=== PATIENT | female | born 1955 | race Caucasian/White ===

== ENCOUNTER 2017-08-10 20:02 | Inpatient (IN) | payer MEDICARE, OTHER ==
[~2017-08-10] VITALS: Ht 165.1 cm; Wt 76.7 kg
[~2017-08-10 20:02] MED LIST: IBUP200C48 PO
--- NOTE | 2017-08-10 20:10 | NUR ---
TO BED 7 A 61 YO FEMAL E PT C/O HAVING A DARK BLOODY BOWEL MOVEMENT 1 HOUR AGO PT DENIES PAIN AT THIS TIME. VSS. NAD NOTED. AMBULATORY WITH STEADY GAIT. NONDIAPHORETIC. GOWNED. COMFORT MEASURES RENDERED. AWAITING FOR ER MD CALLES.
--- NOTE | 2017-08-10 20:30 | NUR ---
Dr Stanley at bedside to purnima.
[2017-08-10] MEDS ORDERED: ONDANSETRON HCL/PF 4 MG/2 ML VIAL ONE (20:47)
--- NOTE | 2017-08-10 20:55 | NUR ---
STARTED A SALINE LOCK ON THE LAC G20, BLOOD DRAWN AND SENT TO LAB.
[2017-08-10] MEDS ORDERED: IV NS 0.9% 1,000 ML BAG IV ONE (21:00)
[2017-08-10] MEDS ORDERED: ONDANSETRON HCL/PF 4 MG/2 ML VIAL IVP ONE (21:00)
[2017-08-10 21:09] LABS: BASOPHILS % (AUTO) 0.4 % (0.0-2.0); EOSINOPHILS # (AUTO) 0.2 /CMM (0.0-0.7); EOSINOPHILS % (AUTO) 2.9 % (0.0-6.0); HEMATOCRIT 39 % (33-45); LYMPHOCYTES # (AUTO) 2.1 /CMM (0.8-4.8); MEAN CORPUSCULAR HEMOGLOBIN 30 PG (26.0-33.0); MEAN CORPUSCULAR HGB CONC 33 g/dl (31.0-36.0); MEAN CORPUSCULAR VOLUME 89 fL (82-100); MONOCYTES # (AUTO) 0.6 /CMM (0.1-1.30); MONOCYTES % (AUTO) 7.7 % (2.0-12.0); NEUTROPHILS # (AUTO) 4.9 /CMM (1.8-8.9); PLATELET COUNT (AUTO) 242 /CMM (150-450); RDW COEFFICIENT OF VARIATION 13.7 (11.5-15.0); RED BLOOD CELL COUNT(AUTO) 4.38 MIL/uL (4.0-5.2); WHITE BLOOD COUNT (AUTO) 7.9 K/uL (4.3-11.0)
[2017-08-10 21:22] LABS: INR 0.9 (0.87-1.13); PROTHROMBIN TIME 9.4 SECS (9.5-12.7)
[2017-08-10 21:26] LABS: ALBUMIN 3.3 g/dL (3.4-5.0); BILIRUBIN,TOTAL 0.2 mg/dL (0.2-1.0); CALCIUM, SERUM 9.2 mg/dL (8.5-10.1); POTASSIUM 3.3 mmol/L (3.5-5.1); TOTAL PROTEIN, SERUM 7.1 g/dL (6.4-8.2)
--- NOTE | 2017-08-10 21:40 | NUR ---
patient back from ct.
--- NOTE | 2017-08-10 21:50 | NUR ---
patient went to the bathroom, noted that patient moved moderate amount of bloody stool with clots. Dr Stanley notified. ongoing vs monitoring.
[2017-08-10] MEDS ORDERED: ACETAMINOPHEN 325 MG TABLET PO PRN (22:30)
[2017-08-10] MEDS ORDERED: HYDROCODONE/APAP 5/325MG 1 EACH TABLET PO PRN (22:30)
[2017-08-10] MEDS ORDERED: ONDANSETRON HCL/PF 4 MG/2 ML VIAL IVP PRN (22:30)
--- NOTE | 2017-08-10 23:56 | NUR ---
Report given to Brenda JIMENEZ for dori.
--- NOTE | 2017-08-11 | NUR ---
Transferred patient to tele bed 322-1 via als protocol, no incident noted.
[2017-08-11 00:45] VITALS: BP 118/61
--- NOTE | 2017-08-11 00:45 | NUR ---
MS RN ADMITTING NOTES: ADMITTED A 61 YO FEMALE PATIENT WHO WAS SEEN IN THE ER AFTER HAVING 1 EPISODE OF MUCOID, BLOODY STOOL. PATIENT WAS BROUGHT TO MS FLOOR BY WHEELCHAIR, AOX4, ON ROOM AIR, BREATHING EVEN AND UNLABORED, APPEARS CALM AND IN NO DISTRESS, AMBULATORY. PATIENT REQUESTED TO BE ADMITTED IN A ROOM BY HERSELF, STATES THAT SHE HAS MULTIPLE CHEMICAL SENSITIVITIES. DENIES PAIN AT THIS TIME. ON CLEAR LIQUIDS DIET. PIV OVER LAC G20 INTACT AND PATENT TO FLUSH. ADMITTING CARE DONE. PROVIDED FOR COMFORT AND SAFETY. BED IN LOWEST AND LOCKED POSITION, SIDERAILS UPX3. WILL CONT TO MONITOR.
--- NOTE | 2017-08-11 01:30 | NUR ---
RN NOTES: CALLED DR MCKENZIE RE SERUM K: 3.3. NO NEW ORDERS GIVEN BY , FOR AM LABS IN THE AM.
[2017-08-11] MEDS: IV NS 0.9% 1,000 ML IV PRN (01:46)
[2017-08-11 01:53] VITALS: BP 118/61
[2017-08-11] MEDS ORDERED: THYR30TA2 PO (04:38)
--- NOTE | 2017-08-11 05:25 | NUR ---
RN NOTES: PATIENT REFUSED BLOOD DRAW FOR NOW, REQUESTED TO HAVE LABS DRAWN LATER, SAYING THAT SHE WANTS TO SLEEP.
--- NOTE | 2017-08-11 06:27 | NUR ---
MS RN CLOSING NOTES: PATIENT IN BED, AOX4, ON ROOM AIR, BREATHING EVEN AND UNLABORED. PIV OVER LAC G20 INTACT AND PATENT TO FLUSH, PATIENT REQUESTING TO HAVE IV FLUID RECONNECTED LATER SAYING SHE WANTS TO BE ABLE TO SLEEP FOR NOW. NO ACUTE CHANGE IN CONDITION NOTED THROUGH SHIFT. PROVIDED FOR COMFORT AND SAFETY. BED IN LOWEST AND LOCKED POSITION, SIDERAILS UP X3. WILL ENDORSE TO AM RN FOR SHANIA.
--- NOTE | 2017-08-11 07:30 | NUR ---
RN Initial Notes: Received patient resting in bed. Non-labored breathing noted on room air. Patient alert oriented x4. Patient denies pain at the moment. IV site on left ac patent and intact. Bed in lowest locked position. Call light within reach. WIll continue to monitor.
[2017-08-11 08:00] VITALS: BP 100/51
[2017-08-11] MEDS ORDERED: PANTOPRAZOLE 40 MG VIAL IV SCH (09:00)
[2017-08-11] MEDS: FAMOTIDINE/PF INJ 20 MG/2 ML VIAL IV SCH ×2 (12:00→22:00)
--- NOTE | 2017-08-11 12:56 | NUR ---
RN NOTES: Patient refused Famotidine. Benefits and risks explained. Medication offered multiple times. Patient still refused
[2017-08-11 15:10] LABS: BASOPHILS % (AUTO) 0.8 % (0.0-2.0); EOSINOPHILS # (AUTO) 0.2 /CMM (0.0-0.7); EOSINOPHILS % (AUTO) 3.5 % (0.0-6.0); HEMATOCRIT 37 % (33-45); HEMOGLOBIN 12.4 g/dL (11.5-14.8); LYMPHOCYTES # (AUTO) 1.7 /CMM (0.8-4.8); LYMPHOCYTES % (AUTO) 27.7 % (20.0-44.0); MEAN CORPUSCULAR HEMOGLOBIN 30 PG (26.0-33.0); MEAN CORPUSCULAR HGB CONC 33 g/dl (31.0-36.0); MEAN CORPUSCULAR VOLUME 89 fL (82-100); MONOCYTES # (AUTO) 0.6 /CMM (0.1-1.30); MONOCYTES % (AUTO) 10.3 % (2.0-12.0); NEUTROPHILS # (AUTO) 3.5 /CMM (1.8-8.9); NEUTROPHILS % (AUTO) 57.7 % (43.0-81.0); PLATELET COUNT (AUTO) 235 /CMM (150-450); RDW COEFFICIENT OF VARIATION 13.4 (11.5-15.0); RED BLOOD CELL COUNT(AUTO) 4.18 MIL/uL (4.0-5.2)
[2017-08-11] MEDS ORDERED: POTASSIUM CHLORIDE 10 MEQ TABLET.SA PO ONE (15:30)
[2017-08-11 15:32] LABS: RETICULOCYTE COUNT 1.3 % (0.6-2.5)
[2017-08-11 15:38] LABS: CALCIUM, SERUM 8.9 mg/dL (8.5-10.1); CREATININE 0.8 mg/dL (0.6-1.3); MAGNESIUM 2.1 mg/dL (1.8-2.4); PHOSPHORUS 3.2 mg/dL (2.5-4.9); POTASSIUM 3.6 mmol/L (3.5-5.1)
[2017-08-11 15:48] LABS: THYROID STIMULATING HORMONE 0.898 uIU/mL (0.358-3.74)
[2017-08-11 16:00] VITALS: BP 110/61
--- NOTE | 2017-08-11 18:30 | NUR ---
RN Notes: Dr. Rothman ordered to continue the patient's home medication. [place] Thyroid 30 mg daily.
--- NOTE | 2017-08-11 19:25 | NUR ---
RN Closing Notes: patient resting in bed. Non-labored breathing noted on room air. Patient alert oriented x4. Patient denies pain at the moment. IV site on left ac patent and intact. Bed in lowest locked position. Call light within reach. MD notified that patient refused Famotidine earlier. During shift, patient kept clean and dry. Encouraged to turn and reposition every 2 hours. Patient denies having bloody stools today. Endorsed to next shift
--- NOTE | 2017-08-11 19:30 | NUR ---
MS RN OPENING NOTES: PATIENT IN BED, AOX4, ON ROOM AIR, BREATHING EVEN AND UNLABORED. APPEARS CALM AND IN NO DISTRESS. PIV OVER LAC G20 INTACT AND PATENTLY INFUSING WITH NS RUNNING AT 75 ML/HR; HOWEVER, PATIENT STATES THAT SHE FEELS UNCOMFORTABLE AND THAT HER HAND APPEARS SWOLLEN. LEFT HAND AND UPPER ARM DID NOT SHOW ANY SIGNS OF SWELLING, REDNESS OR INFILTRATION, CHECKED WITH AM RN WELL. PATIENT STATES THAT SHE WANTS TO BE OFF THE IV FLUIDS FOR NOW, EXPLAINED BENEFITS AND RISKS, PATIENT STILL REFUSING, SAYING "IM DONE WITH THIS FOR TONIGHT." PATIENT ALSO STATES THAT SHE ALSO APPEARS PALE, AND THAT SHE DOES NOT LOOK GOOD. PATIENT'S COLOR APPEARS NORMAL, CAP REFILL < 3 SEC. PROVIDED FOR COMFORT AND SAFETY. BED IN LOWEST AND LOCKED POSITION, SIDERAILS UP X2. WILL CONT TO MONITOR.
[2017-08-11 20:00] VITALS: BP 124/71
--- NOTE | 2017-08-11 20:15 | NUR ---
RN NOTES: PATIENT HAD BRIGHT RED BLOODY BM IN TOILET. PATIENT DENIES ANY PAIN IN LOWER ABDOMEN AND RECTUM AT THIS TIME, STATES THAT THIS IS THE FIRST TIME SHE HAS HAD THIS KIND OF BM AFTER THE SAME TYPE OF BM THAT HAPPENED AT HOME BEFORE ADMISSION.
--- NOTE | 2017-08-12 06:49 | NUR ---
MS RN CLOSING NOTES: PATIENT IN BED, ASLEEP AT THIS TIME. ON ROOM AIR, BREATHING EVEN AND UNLABORED. APPEARS CALM AND IN NO DISTRESS. WAS ABLE TO SLEEP WELL THROUGH NIGHT. PIV OVER LAC G20 INTACT AND PATENT TO FLUSH. PATIENT WAS REFUSING THROUGH THE NIGHT TO HAVE IV FLUID RECONNECTED. PROVIDED FOR COMFORT AND SAFETY. NO ACUTE CHANGE IN CONDITION NOTED THROUGH SHIFT. WILL ENDORSE TO AM RN FOR SHANIA.
[2017-08-12] MEDS: THYROID 30 MG TABLET PO SCH ×2 (07:30→08:55)
--- NOTE | 2017-08-12 07:45 | NUR ---
RN OPENING NOTES RECEIVED PATIENT RESTING IN BED WITH EYES CLOSED. PATIENT EASILY AROUSABLE. AOX4. DENIES PAIN AT THIS TIME. PATIENT DENIES SOB, AND CP. RESPIRATIONS EVEN AND UNLABORED. NO ACUTE DISTRESS NOTED. IV LAC 20 G. PATIENT DOES NOT WANT NS RUNNING. PATIENT CLAIMS IT CAUSES HER ARM TO SWELL. NIGHT RN REPORTED PATIENT HAS TENDENCY TO REFUSE MEDICATIONS. BED LOCKED IN THE LOWEST POSITION WITH SIDE RAILS UP X2. CALL LIGHT WITHIN REACH. WILL CONTINUE TO MONITOR, ASSESS AND EDUCATE PATIENT THROUGHOUT SHIFT.
[2017-08-12 08:00] VITALS: BP 121/68
--- NOTE | 2017-08-12 08:01 | NUR ---
RN NOTES PATIENT REQUESTING MEDICATIONS AND VS TO BE TAKEN WHEN PATIENT IS READY TO WAKE UP. WILL RESPECT PATIENT WISHES AND WILL GIVE THYROID MEDICATION IN ABOUT 1 HOUR.
[2017-08-12] MEDS: FAMOTIDINE/PF INJ 20 MG/2 ML VIAL IV SCH ×2 (08:56→21:00)
--- NOTE | 2017-08-12 09:00 | NUR ---
RN NON ADMIN NOTES PATIENT REFUSED MORNING MEDICATIONS. EDUCATION PROVIDED AND PATIENT IS AWARE.
--- NOTE | 2017-08-12 13:13 | NUR ---
SW received a call from pt's RN informing SW that pt. would like to speak with SW. SW met with pt. bedside. Pt. is alert and oriented x4. Pt. was sitting in her bed at time of assessment. Pt. informed SW that she has section 8 housing and was wondering if SW had any contacts at Section 8 housing who can assist pt. in finding section 8 housing in [facility]. SW informed pt. she can printout a list of Section 8 Vacancies and bring it to her tomorrow.
[2017-08-12 16:00] VITALS: BP 118/73
--- NOTE | 2017-08-12 19:20 | NUR ---
RN CLOSING NOTES PATIENT RESTING IN BED COMFORTABLY. PATIENT AOX4. REFUSED MEDS. REFUSED BLOOD DRAW. REFUSED IV HYDRATION. REFUSED CHANGE OF IV SITE. PATIENT HAS ODD BEHAVIOR. MD AWARE. DENIES PAIN. DENIES CP. DENIES SOB. ALL NEEDS MET. ALL MEDS GIVEN ALLOWED. BED LOCKED IN THE LOWEST POSITION WITH SIDE RAILS UP X2. WILL GIVE REPORT TO NIGHT RN FOR SHANIA.
[2017-08-12] MEDS ORDERED: PEG 3350/NA SULF,BICARB,CL/KCL 4,000 ML BOTTLE PO ONE ×2 (19:30→21:00)
[2017-08-12] MEDS ORDERED: MAGNESIUM CITRATE 296 ML BOTTLE PO ONE (19:30)
--- NOTE | 2017-08-12 19:30 | NUR ---
MS RN NOTE RECEIVED PATIENT FROM DAY SHIFT, PATIENT IS ALERT AND ORIENTEDX4, AMBULATORY, NO S/S OF RESPIRATORY DISTRESS OR PAIN AT THIS TIME. IV ON LEFT AC IS PATENT AND INTACT. DR. FONTANEZ IS SPEAKING WITH THE PATIENT REGARDING EGD AND COLONOSCOPY PROCEDURE TOMORROW. SRX2, BED IN LOW POSITION, CALL LIGHT WITHIN REACH, WILL CONTINUE TO MONITOR PATIENT.
[2017-08-12 19:58] VITALS: BP 121/71
--- NOTE | 2017-08-12 20:00 | NUR ---
MS RN NOTE TRIED TO GET THE CONSENT FORMS FOR EGD AND COLONOSCOPY FROM THE PATIENT PER DR. FONTANEZ'S ORDER, PATIENT REFUSED TO SIGN, VERY ANXIOUS, SHE WOULD LIKE TO SPEAK WITH HER PRIMARY DOCTOR FIRST BEFORE SIGNING AND HAVING PROCEDURES. INFORMED DR. FONTANEZ ABOUT PATIENT'S WISHES, HE MADE AWARE.
--- NOTE | 2017-08-12 22:04 | NUR ---
MS RN NOTE PATIENT'S PRIMARY DOCTOR HAS NOT CALLED HER BACK, PATIENT STILL DOES NOT WANT TO SIGN THE CONSENTS AND REFUSED TO DRINK GOLY[employer]ELY [employer] FOR BOWEL PREP WELL. NOTIFIED DR. FONTANEZ WELL, HE MADE AWARE.
--- NOTE | 2017-08-13 06:50 | NUR ---
MS RN Closing Notes: Patient resting in bed. Patient alert oriented x4. Non-labored breathing noted on room air. IV site patent and intact. Patient denies pain at the moment. Bed in lowest locked position. Call light within reach. Will endorse to next shift. No signs of bleeding
--- NOTE | 2017-08-13 06:50 | NUR ---
MS RN NOTE PATIENT IS SLEEPING AT THIS TIME, NO ACUTE DISTRESS NOTED THROUGHOUT THE SHIFT. WILL ENDORSE TO DAY SHIFT NURSE FOR SHANIA.
[2017-08-13 07:09] LABS: CANCER AG, 125 13.2 U/mL (0.0-38.1)
--- NOTE | 2017-08-13 07:20 | NUR ---
RN Initial Notes: Patient resting in bed. Patient alert oriented x4. Non-labored breathing noted on room air. IV site patent and intact. Patient denies pain at the moment. Bed in lowest locked position. Call light within reach. Will continue to monitor.
[2017-08-13] MEDS: THYROID 30 MG TABLET PO SCH (07:30)
[2017-08-13] MEDS: FAMOTIDINE/PF INJ 20 MG/2 ML VIAL IV SCH ×2 (09:00→21:00)
[2017-08-13 10:00] VITALS: BP 101/83
--- NOTE | 2017-08-13 13:20 | NUR ---
NAVEED met with pt. bedside and gave pt. list of Section 8 vacancies and contact information for [facility] housing . Pt. inquired about Advance Directives and wanting her friend to make medical decision in case of emergency. NAVEED explained the Advance directive procedure and informed pt. she will stop by this afternoon with the Advance Directive Form.
--- NOTE | 2017-08-13 14:00 | NUR ---
MS RN Notes: Rajesh Lincoln NP ordered MRI with and without contrast. Patient refused the one with contrast. Patient to have MRI without contrast. PASCUAL Lincoln aware
--- NOTE | 2017-08-13 14:53 | NUR ---
RN Notes: Patient refused MRI with contrast. Explained benefits and risks. Patient still refusing. Rajesh Lincoln NP notified.
[2017-08-13 16:00] VITALS: BP 100/73
--- NOTE | 2017-08-13 19:20 | NUR ---
MS RN NOTE RECEIVED PATIENT FROM DAY SHIFT, PATIENT IS ALERT AND ORIENTEDX4, AMBULATORY, NO S/S OF RESPIRATORY DISTRESS OR PAIN AT THIS TIME. IV ON LEFT AC IS PATENT AND INTACT. PATIENT IS GOING TO HAVE MRI WITHOUT CONTRAST. SRX2, BED IN LOW POSITION, CALL LIGHT WITHIN REACH, WILL CONTINUE TO MONITOR PATIENT.
[2017-08-13] MEDS: DIAZEPAM 5 MG TABLET PO PRN (19:40)
--- NOTE | 2017-08-13 19:45 | NUR ---
MS RN NOTE PATIENT WENT DOWN FOR MRI.
[2017-08-13 20:00] VITALS: BP 119/76
--- NOTE | 2017-08-13 21:10 | NUR ---
MS RN NOTE PATIENT CAME BACK FROM MRI WITH STABLE CONDITION.
[2017-08-14] MEDS: DIAZEPAM 5 MG TABLET PO PRN (03:13)
--- NOTE | 2017-08-14 03:20 | NUR ---
MS RN NOTE PATIENT STATED SHE FEELS ANXIOUS AND HAS MUSCLE SPASMS THAT KEEPS HER AWAKE. VALIUM 5MG PO GIVEN. WILL MONITOR EFFECTIVENESS.
--- NOTE | 2017-08-14 07:01 | NUR ---
MS RN NOTE PATIENT IS SLEEPING AT THIS TIME, NO ACUTE DISTRESS NOTED THROUGHOUT THE SHIFT. WILL ENDORSE TO DAY SHIFT NURSE FOR SHANIA.
[2017-08-14] MEDS: THYROID 30 MG TABLET PO SCH (07:30)
[2017-08-14] MEDS: FAMOTIDINE/PF INJ 20 MG/2 ML VIAL IV SCH ×3 (09:00→20:45)
[2017-08-14 09:50] VITALS: BP 121/76
--- NOTE | 2017-08-14 10:20 | NUR ---
RN Notes: Dr. Logan informed of patient's interest in doing colonoscopy. Dr. Logan ordered bowel prep with golyetly 4000ml, to start at 2 pm. Magnesium citrate 300 ml at 8 pm. Patient to be placed NPO after midnight as well as obtaining a consent for a colonoscopy.
--- NOTE | 2017-08-14 11:30 | NUR ---
RN Notes: Patient brought Dimas thyroid from home. Dr. Rajesh Lincoln approved to have it continued. Medication taken to pharmacy
[2017-08-14] MEDS ORDERED: PEG 3350/NA SULF,BICARB,CL/KCL 4,000 ML BOTTLE PO ONE (14:00)
--- NOTE | 2017-08-14 19:30 | NUR ---
MS RN Closing Notes: Patient resting in bed. Patient alert oriented x4. Non-labored breathing noted on room air. IV site patent and intact. Patient denies pain at the moment. Bed in lowest locked position. Call light within reach. Endorsed to next shift. Patient educated on being NPO post midnight, patient signed the consent for colonoscopy. Patient denies having bloody stools today. She stated having 1 bm with scant bloody mucus.
[2017-08-14 19:42] VITALS: BP 122/73
[2017-08-14] MEDS ORDERED: MAGNESIUM CITRATE 296 ML BOTTLE PO ONE (20:00)
--- NOTE | 2017-08-15 06:45 | NUR ---
MS RN NOTES AWAKE & RESPONSIVE. NOT IN ANY DISTRESS. NO SOB NOTED. DENIES ANY PAIN OR DISCOMFORT AT THIS TIME. WITH IV-HL PATENT & INTACT. KEPT ON NPO P MN. MONITORED ACCORDINGLY. CALL LIGHT WITHIN REACH. BED IN LOWEST POSITION. SR UP X 2 FOR SAFETY WILL ENDORSE TO NEXT SHIFT.
--- NOTE | 2017-08-15 07:00 | NUR ---
MS TONY AM NOTES RECEIVED PATIENT IS ALERT AND ORIENTEDX4, AMBULATORY, NO S/S OF RESPIRATORY DISTRESS OR PAIN AT THIS TIME. IV ON LEFT AC IS PATENT AND INTACT. ON NPO FOR COLONOSCOPY ONLY AND REFUSED EGD PROCEDURE.REFUSED TO SIGN THE CONSENT FOR BLOOD .O.R. STAFF MADE AWARE.SRX2, BED IN LOW POSITION, CALL LIGHT WITHIN REACH, WILL CONTINUE TO MONITOR PATIENT.
--- NOTE | 2017-08-15 07:40 | NUR ---
PT WENT TO OR FOR COLONOSCOPY PROCEDURE ONLY AND REFUSED EGD WITH STABLE V/S.
[2017-08-15 08:00] VITALS: BP 115/71
[2017-08-15] MEDS ORDERED: METHYLENE BLUE 10 ML VIAL IJ ONE (08:26)
[2017-08-15] MEDS: FAMOTIDINE/PF INJ 20 MG/2 ML VIAL IV SCH ×2 (09:00→21:00)
[2017-08-15 09:30] VITALS: BP 124/73
[2017-08-15] MEDS: THYROID 30 MG TABLET PO SCH (09:42)
--- NOTE | 2017-08-15 10:00 | NUR ---
PT REFUSED BLOOD DRAW FOR CBC AND BMP INSPITE OF EXPLAINING ITS IMPORTANCE.PT STATED I ONLY WANT MY BLOOD TO BE DRAWN ONLY FOR EMERGENCY CASES ONLY.
--- NOTE | 2017-08-15 11:00 | NUR ---
ATTENDED PT'S CALL LIGHT AND PT WAS FURIOUSLY SCREAMING SAYING THAT THE HER PHONE IS NOT WORKING AND THAT SHE IS NOT GETTING HER PHONE CALLS.PT STATED THAT SHE ALREADY CALLED THE CONTINUITY WRITER TO CALL I.TSierra RAMIREZ TO FIX HER PHONE.ATTEMPTED TO CHECK THE PHONE BUT PT WAS SCREAMING AND WAS REFUSING FOR ME TO CHECK THE PHONE SCREAMING,"NO!NO!NO! ALL THE NURSES THAT TRIED TO FIX IT WASN'T ABLE TO FIX IT! I WANT THE I.T. TO FIX THE PHONE RIGHT NOW!" CHECKED WITH LORNA MARKHAM AND Migdalia PHAN, WHO IS AWARE OF THE PROBLEM.
--- NOTE | 2017-08-15 12:00 | NUR ---
FOLLOW UP MADE WITH LORNA MARKHAM AND EMILIE Negron WHO STATED THAT PT'S PHONE WAS WORKING.
[2017-08-15 16:00] VITALS: BP 121/70
--- NOTE | 2017-08-15 18:00 | NUR ---
PT RESTING IN BED TALKING TO THE SURGEON,DR BRUNSON AND DR RODRIGES BROACHER.ENDORSED TO NIGHT NURSE CARE.
--- NOTE | 2017-08-15 19:30 | NUR ---
RN OPEN NOTES RECEIVED PATIENT AWAKE IN BED WITH FAMILY AT BEDSIDE. A/O X4. NO SIGNS OF DISTRESS OR DISCOMFORT. BREATHING EVEN AND UNLABORED. IV ACCESS IN LAC PATENT AND INTACT, NO SIGNS OF REDNESS OR INFILTRATION. BED IN LOW LOCKED POSITION WITH SIDE RAILS X2. CALL LIGHT WITHIN REACH. WILL CONTINUE TO MONITOR.
[2017-08-15 20:00] VITALS: BP 120/74
[2017-08-15] MEDS: IV NS 0.9% 1,000 ML IV PRN (21:01)
--- NOTE | 2017-08-16 06:59 | NUR ---
RN CLOSING NOTES PATIENT RESTING IN BED, EASILY AROUSABLE. A/O X4. NO SIGNS OF DISTRESS OR DISCOMFORT. BREATHING EVEN AND UNLABORED. IV ACCESS IN LAC PATENT AND INTACT, NO SIGNS OF REDNESS OR INFILTRATION. ALL NEEDS MET. NO SIGNIFICANT CHANGES THROUGH THE NIGHT. BED IN LOW LOCKED POSITION WITH SIDE RAILS X2. CALL LIGHT WITHIN REACH. WILL ENDORSE TO AM SHIFT FOR SHANIA.
[2017-08-16] MEDS: THYROID 30 MG TABLET PO SCH (07:30)
[2017-08-16 08:00] VITALS: BP 101/55
--- NOTE | 2017-08-16 08:00 | NUR ---
MS TONY AM NOTES RECEIVED PATIENT IS ALERT AND ORIENTEDX4, AMBULATORY, NO S/S OF RESPIRATORY DISTRESS OR PAIN AT THIS TIME. IV H/L ON LEFT AC IS PATENT AND INTACT. SRX2, BED IN LOW POSITION, CALL LIGHT WITHIN REACH, WILL CONTINUE TO MONITOR PATIENT.
--- NOTE | 2017-08-16 08:30 | NUR ---
PT REFUSED BLOOD DRAW FOR LABS,PEPCID IV AND REFUSED IVF NS TO BE HOOKED UP TO HER AGAIN INSPITE OF EXPLAINING ITS RISKS,IMPORTANCE,CONSEQUENCES AND BENEFITS.
[2017-08-16] MEDS: FAMOTIDINE/PF INJ 20 MG/2 ML VIAL IV SCH (09:00)
--- NOTE | 2017-08-16 09:00 | NUR ---
PT REFUSED THYROID 30 MG TAB SAYING SHE WANTS HER OWN HOME MED THYROID.CALLED PHARMACY AND MADE AWARE.AWAITING FOR PHARMACY TO DELIVER PT'S OWN HOME MED THYROID.
[2017-08-16] MEDS ORDERED: ARMOUR THYROID 30 MG PO SCH (11:00)
--- NOTE | 2017-08-16 11:30 | NUR ---
SEEN BY COURTNEY EGAN NP WITH ORDERS FOR DISCHARGE.PT REFUSED FOR ME TO ADMINISTER THE IVF NS 500 ML SAYING THAT I HAVE BEEN DREADFUL SINCE YESTERDAY REFUSING TO ADMINISTER HER IVF NS.EXPLAINED TO PT IN A LOW AND CALM VOICE SAYING THAT SHE HAS ORDER FOR DISCHARGE AND SHE CAN GO HOME WITHOUT THE IVF IF SHE INSISTS TO REFUSE.PT STATED THAT PASCUAL VALDEZ TOLD HER THAT HE WILL BE THE ONE TO ADMINISTER THE IVF HIMSELF.CLARIFIED TO PASCUAL VALDEZ WHO DENIED SAYING THAT.PT STARTED SCREAMING TO ME,"DON'T TOUCH ME!COURTNEY SAID HE'S GOING TO DO IT!".SEEK TUMBLING AND ROLLING SUPERVISOR,ASHLEY, MASTER TECHNICIAN,BRICE'S HELP FOR ASSISTANCE. TONY CLARK WAS WALKING IN THE HALLWAY TO HOOK PT'S IVF AND STARTED APPLYING HAND GEODETIC COMPUTATOR TO HER HANDS WITNESSED BY THE PT,PT STARTED SCREAMING,"NO!NO!DON'T USE THAT!".EXPLAINED THAT SHE HAS TO SANITIZE HER HANDS AND WASH HER HANDS PRIOR TO PUTTING HER GLOVES ON BEFORE HOOKING THE IVF.PT AND HER BOYFRIEND DISAGREE.CALLED THE RN BOOTH SUPERVISOR FOR ASSISTANCE.AWAITING FOR THE RN BOOTH SUPERVISOR.
[2017-08-16] MEDS ORDERED: IV NS 0.9% 500 ML IV ONE (12:00)
--- NOTE | 2017-08-16 12:00 | NUR ---
CHECKED WITH LORNA MARKHAM AND EMILIE Negron WHO STATED THAT THEY ALREADY CHECKED THE PHONE AND IT WAS WORKING. Addendum: 08/16/17 at 1533 by BRAYAN DURBIN RN WRONG DOCUMENTATION ABOVE
--- NOTE | 2017-08-16 12:00 | NUR ---
PT'S BOYFRIEND,CORY OR ANTHONY WENT TO THE NURSING STATION AND WAS ASKING IF WHERE IS THE NURSE TO ADMINISTER THE IVF AND WAS DEBATING WITH RNEDUARDO SAYING,"YOU NURSES ARE GETTING PAID TO DO YOUR JOB!".TONY CLARK EXPLAINED CALMLY THAT WE ARE WAITING FOR THE RN MD PSYCHIATRY TO ADMINISTER THE IVF NS.
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
--- NOTE | 2017-08-16 13:00 | NUR ---
RECEIVED A CALL FROM PT'S FRIEND,ANTHONY'S MOM AND TRANSFERRED THE CALL TO PT'S ROOM.PT COMPLAINED THAT THE IVF NS BOLUS IS INFUSING TOO FAST THAT IT'S CAUSING DISCOMFORT TO THE PT.ADJUSTED THE IVF NS RATE TO 185ML/HR AND WILL MONITOR ACCORDING TO PT'S TOLERANCE.PT STARTED ASKING,"WHY ARE YOU SCREENING MY PHONE CALLS?".I EXPLAINED TO PT THAT WE USUALLY ASK WHO'S CALLING SO THAT IN CASE WE LOSE CONTACT,WE CAN EXPLAIN TO THE PT WHO CALLED SO THEY CAN CALL BACK THAT PERSON CONCERN.
--- NOTE | 2017-08-16 15:30 | NUR ---
IVF NS 500 ML COMPLETED.RN TAP DANCER,RILEY NOTIFIED,ARRIVED WITH MANAGER CASINO AND MYSELF WITNESSES.IV H/L REMOVED TO PT'S LT AC WITHOUT BLEEDING NOTED,DENYING ANY DISCOMFORT.NO INFILTRATION OR REDNESS NOTED ON PT'S LT AC IV SITE.PT ATE 100%LUNCH AND TOLERATED WELL.CHECKED ALL BELONGINGS AND WAS BROUGHT BY PT HOME.DISCHARGE INSTRUCTIONS,MEDS,PT TEACHING AND FOLLOW UP INSTRUCTIONS GIVEN TO THE PT.DISCHARGED PT HOME WITH STABLE V/S VIA PRIVATE CAR ACCOMPANIED BY HER FRIEND,
== END 2017-08-16 15:30 | disposition home or self-care (01) | DRG 375 ==
LOC: ER 20:07 → TELE 23:33 → MEDSG2 08-11 00:35
PROC: 0DBK8ZZ Excision of Ascending Colon, Via Natural or Artificial Opening Endoscopic (ICD-10-PCS; 2017-08-15)
PROC: 0DBE8ZX Excision of Large Intestine, Via Natural or Artificial Opening Endoscopic, Diagnostic (ICD-10-PCS; principal; 2017-08-15 08:00)
DX: C18.9 Malignant neoplasm of colon, unspecified (principal); C78.00 Secondary malignant neoplasm of unspecified lung; I31.3 Pericardial effusion (noninflammatory); C78.7 Secondary malignant neoplasm of liver and intrahepatic bile duct; E44.1 Mild protein-calorie malnutrition; E88.09 Other disorders of plasma-protein metabolism, not elsewhere classified; K62.5 Hemorrhage of anus and rectum; K80.20 Calculus of gallbladder without cholecystitis without obstruction; E03.9 Hypothyroidism, unspecified; M79.7 Fibromyalgia; E87.6 Hypokalemia; E78.5 Hyperlipidemia, unspecified; K64.8 Other hemorrhoids; Z86.19 Personal history of other infectious and parasitic diseases; R73.9 Hyperglycemia, unspecified; Z68.28 Body mass index [BMI] 28.0-28.9, adult; F40.240 Claustrophobia; R53.82 Chronic fatigue, unspecified; R74.8 Abnormal levels of other serum enzymes; K63.5 Polyp of colon
CPT/HCPCS: 36415; 71250-TC; 74181-TC; 80048-TC; 80061-TC; 80076-TC; 82105; 82378; 83540-TC; 83690-TC; 83735-TC; 84100-TC; 84443-TC; 85025-TC; 85045-TC; 85652-TC; 85730-TC; 86301; 86304; 86850-TC; 87081-TC; 88305-TC; A4606; J2405; J2704; J3490; J7030; Q9968; Z7610

== ENCOUNTER 2018-02-20 19:31 | Emergency (ER) | payer MEDICARE, OTHER ==
[~2018-02-20] VITALS: Ht 162.6 cm; Wt 68.0 kg
[~2018-02-20 19:31] MED LIST changes: +IBUP-2413 PO; -IBUP200C48 PO; +THYR30TA2 PO
[2018-02-20 19:35] VITALS: BP 130/80
--- NOTE | 2018-02-20 19:41 | NUR ---
PT REFUSED V/S. RISK AND BENEFITS EXPLAINED X3. PT STRONGLY REFUSED. DR. RITTER MADE AWARE
[2018-02-20] MEDS ORDERED: HYDROCODONE/APAP 5/325MG 1 EACH TABLET PO ONE (20:00)
[2018-02-20] MEDS ORDERED: HYDROCODONE/APAP 5/325MG 1 EACH TABLET ONE (20:05)
== END 2018-02-20 20:38 | disposition home or self-care (01) ==
LOC: ER 19:32
DX: M79.1 Myalgia (principal); C18.9 Malignant neoplasm of colon, unspecified; C78.7 Secondary malignant neoplasm of liver and intrahepatic bile duct; F10.10 Alcohol abuse, uncomplicated; Z88.8 Allergy status to other drugs, medicaments and biological substances
CPT/HCPCS: A4606; Z7610

== ENCOUNTER 2018-04-23 22:53 | Emergency (ER) | payer MEDICARE, OTHER ==
[~2018-04-23] VITALS: Ht 162.6 cm; Wt 65.8 kg
--- NOTE | 2018-04-23 22:53 | NUR ---
CALLED PT NAME X3, NO RESPONSE, PT NOT IN WR AT THIS TIME. WILL FOLLOW UP WITH PT.
--- NOTE | 2018-04-23 22:53 | NUR ---
C/O FEVER/ BODY ACHES X 2 MONTHS. HX COLON CA STAGE 4. PT STATES "I THINK I HAVE AN INFECTION" PT NOTED WITH GENERALIZED PAIN /10 WHEN MOVING. VSS AND FAMILY AT BEDSIDE. WILL CONTINUE TO MONITOR FOR ANY CHANGES DURING THE SHIFT.
[2018-04-24 00:10] LABS: BASOPHILS % (AUTO) 0.4 % (0.0-2.0); EOSINOPHILS % (AUTO) 1.5 % (0.0-6.0); HEMATOCRIT 32 % (33-45); HEMOGLOBIN 10.4 g/dL (11.5-14.8); LYMPHOCYTES % (AUTO) 17.9 % (20.0-44.0); MEAN CORPUSCULAR HGB CONC 33 g/dl (31.0-36.0); MEAN CORPUSCULAR VOLUME 87 fL (82-100); MONOCYTES # (AUTO) 0.6 /CMM (0.1-1.30); MONOCYTES % (AUTO) 9.9 % (2.0-12.0); NEUTROPHILS % (AUTO) 70.3 % (43.0-81.0); PLATELET COUNT (AUTO) 259 /CMM (150-450); RDW COEFFICIENT OF VARIATION 17.6 (11.5-15.0); RED BLOOD CELL COUNT(AUTO) 3.66 MIL/uL (4.0-5.2); WHITE BLOOD COUNT (AUTO) 5.7 K/uL (4.3-11.0)
[2018-04-24 00:26] LABS: INR 1.03 (0.87-1.13)
[2018-04-24 00:31] LABS: CALCIUM, SERUM 8.9 mg/dL (8.5-10.1); CARBON DIOXIDE 29 mmol/L (21-32); CHLORIDE 103 mmol/L (98-107); CREATININE 0.6 mg/dL (0.6-1.3); GLUCOSE 91 mg/dL (74-106); POTASSIUM 3.1 mmol/L (3.5-5.1); SODIUM SERUM 141 mmol/L (136-145); UREA NITROGEN, BLOOD 4 mg/dL (7-18)
[2018-04-24 00:32] LABS: TROPONIN I < 0.017 ng/mL (0.00-0.056)
[2018-04-24 00:37] LABS: ALANINE AMINOTRANSFERASE 44 U/L (12-78); ALBUMIN 2.8 g/dL (3.4-5.0); ALKALINE PHOSPHATASE 207 U/L (46-116); ASPARTATE AMINOTRANSFERASE 116 U/L (15-37); BILIRUBIN,DIRECT 0.1 mg/dL (0.0-0.2); BILIRUBIN,TOTAL 0.5 mg/dL (0.2-1.0); TOTAL PROTEIN, SERUM 7.3 g/dL (6.4-8.2)
[2018-04-24 00:38] LABS: APPEARANCE,URINE CLEAR (CLEAR); BILIRUBIN,URINE NEGATIVE (NEGATIVE); BLOOD, URINE NEGATIVE Ery/uL (NEGATIVE); COLOR,URINE YELLOW (YELLOW); KETONES,URINE NEGATIVE (NEGATIVE); LEUKOCYTE ESTERASE ,URINE NEGATIVE (NEGATIVE); NITRITE, URINE NEGATIVE (NEGATIVE); PH,URINE 6.5 (5.0-8.0); PROTEIN,URINE TRACE mg/dl (NEGATIVE); UGLUCOSE NEGATIVE (NEGATIVE); UROBILINOGEN,URINE 0.2 EU/dL (0.2)
[2018-04-24 00:45] LABS: BACTERIA,URINE Few /HPF (None Seen); RBC,URINE 0-2 /HPF (0-2); SQUAMOUS EPITHELIAL CELL,UR Few /HPF (None Seen)
[2018-04-24 00:46] LABS: MUCUS,URINE Few /LPF (None Seen)
--- NOTE | 2018-04-24 01:39 | NUR ---
PT OFF TO XRAY FOR 2-VIEW CXR
[2018-04-24 02:57] VITALS: BP 141/81
== END 2018-04-24 02:58 | disposition home or self-care (01) ==
LOC: ER 22:57
DX: R91.1 Solitary pulmonary nodule (principal); R50.9 Fever, unspecified; R94.31 Abnormal electrocardiogram [ECG] [EKG]; M79.7 Fibromyalgia; A69.20 Lyme disease, unspecified; Z88.8 Allergy status to other drugs, medicaments and biological substances
CPT/HCPCS: 36415; 71045; 71046; 80048; 80076; 81001; 83605; 84484; 85025; 85730; 87040 ×2; 87086; 93005; 99285; A4606; J7030; 81000-TC; Z7610

== ENCOUNTER 2018-05-06 14:38 | Inpatient (IN) | payer MEDICARE, OTHER ==
[2018-05-05 20:00] VITALS: BP 128/72
[~2018-05-06] VITALS: Ht 162.6 cm; Wt 63.5 kg
[~2018-05-06 14:38] MED LIST changes: -IBUP-2413 PO; +IBUP200C76 PO
--- NOTE | 2018-05-06 14:40 | NUR ---
PT A/O X 4. C/C OF GEN WEAKNESS. NEG ACUTE DISTRESS. VSS. STABLE CONDITON. SAFETY MEASURES IN PLACE.
--- NOTE | 2018-05-06 15:09 | NUR ---
PT REFUSING CXR, ER IS AWARE.
--- NOTE | 2018-05-06 15:15 | NUR ---
PT REFUSED X RAY
[2018-05-06 15:27] LABS: BASOPHILS # (AUTO) 0.1 /CMM (0.0-0.2); EOSINOPHILS % (AUTO) 0.7 % (0.0-6.0); HEMATOCRIT 29 % (33-45); HEMOGLOBIN 9.6 g/dL (11.5-14.8); LYMPHOCYTES # (AUTO) 0.4 /CMM (0.8-4.8); LYMPHOCYTES % (AUTO) 6.3 % (20.0-44.0); MEAN CORPUSCULAR HEMOGLOBIN 27 PG (26.0-33.0); MEAN CORPUSCULAR HGB CONC 33 g/dl (31.0-36.0); MEAN CORPUSCULAR VOLUME 82 fL (82-100); MONOCYTES # (AUTO) 0.6 /CMM (0.1-1.30); NEUTROPHILS # (AUTO) 5.4 /CMM (1.8-8.9); PLATELET COUNT (AUTO) 264 /CMM (150-450); RED BLOOD CELL COUNT(AUTO) 3.56 MIL/uL (4.0-5.2); WHITE BLOOD COUNT (AUTO) 6.5 K/uL (4.3-11.0)
[2018-05-06 15:39] LABS: CALCIUM, SERUM 9.7 mg/dL (8.5-10.1); CARBON DIOXIDE 27 mmol/L (21-32); CHLORIDE 103 mmol/L (98-107); CREATININE 0.6 mg/dL (0.6-1.3); GLUCOSE 62 mg/dL (74-106); SODIUM SERUM 139 mmol/L (136-145); UREA NITROGEN, BLOOD 8 mg/dL (7-18)
[2018-05-06 15:40] LABS: INR 1.1 (0.85-1.15)
[2018-05-06 15:43] LABS: TROPONIN I < 0.017 ng/mL (0.00-0.056)
[2018-05-06 15:45] LABS: ALANINE AMINOTRANSFERASE 19 U/L (12-78); ALBUMIN 2.3 g/dL (3.4-5.0); ALKALINE PHOSPHATASE 147 U/L (46-116); ASPARTATE AMINOTRANSFERASE 71 U/L (15-37); BILIRUBIN,DIRECT 0.4 mg/dL (0.0-0.2); BILIRUBIN,TOTAL 0.8 mg/dL (0.2-1.0); TOTAL PROTEIN, SERUM 7.1 g/dL (6.4-8.2)
[2018-05-06] MEDS ORDERED: POTASSIUM CHLORIDE 20 MEQ TAB.PRT.SR PO ONE ×2 (16:00→16:26)
[2018-05-06] MEDS ORDERED: POTA10CA43 PO (16:42)
[2018-05-06 16:54] LABS: BAND % (MANUAL) 8 % (0.0-5.0); BASOPHILS % (MANUAL) 0 % (0.0-2.0); EOSINOPHILS % (MANUAL) 0 % (0-4); LYMPHOCYTES % (MANUAL) 3 % (16-48); MONOCYTES % (MANUAL) 10 % (0-11.0); NEUTROPHILS % (MANUAL) 79 (42-76)
[2018-05-06] MEDS ORDERED: VANCOMYCIN 1 GM in IV D5W 250 ML IV ONE ×2 (17:00→19:00)
[2018-05-06] MEDS ORDERED: IV NS 0.9% 1,000 ML BAG IV ONE (17:00)
[2018-05-06] MEDS ORDERED: CEFEPIME 1 GM in IV D5W 50 ML IV ONE (17:00)
--- NOTE | 2018-05-06 17:26 | NUR ---
BEDSIDE REPORT GIVEN TO OPHELIA JIMENEZ FOR CONTINUITY OF CARE ON TELEMETRY UNIT
--- NOTE | 2018-05-06 17:34 | NUR ---
MAXIPIME AND VANCOMYCIN ENDORSED TO FLOOR NURSE. PT REQUEST FOR EARLY ADMISSION. EXPLAINED TO PT AND FAMILY THAT MEDS NEED TO BE GIVEN. FAMILY REFUSED AND BEGAN TO PUSH BED TO ADMISSION ROOM.
[2018-05-06 17:48] LABS: APPEARANCE,URINE SL CLOUDY (CLEAR); BILIRUBIN,URINE NEGATIVE (NEGATIVE); BLOOD, URINE TRACE Ery/uL (NEGATIVE); COLOR,URINE YELLOW (YELLOW); KETONES,URINE 1+ (NEGATIVE); LEUKOCYTE ESTERASE ,URINE NEGATIVE (NEGATIVE); NITRITE, URINE NEGATIVE (NEGATIVE); PH,URINE 5.5 (5.0-8.0); PROTEIN,URINE TRACE mg/dl (NEGATIVE); UGLUCOSE NEGATIVE (NEGATIVE)
[2018-05-06 17:53] LABS: BACTERIA,URINE None seen /HPF (None Seen); RBC,URINE NONE SEEN /HPF (0-2); SQUAMOUS EPITHELIAL CELL,UR Rare /HPF (None Seen); WBC,URINE NONE SEEN /HPF (0-3)
[2018-05-06] MEDS ORDERED: MAG HYDROX/AL HYDROX/SIMETH 30 ML UDC PO PRN (18:00)
[2018-05-06] MEDS ORDERED: ZOLPIDEM TARTRATE 5 MG TABLET PO PRN (18:00)
[2018-05-06] MEDS ORDERED: ACETAMINOPHEN 325 MG TABLET PO PRN (18:00)
[2018-05-06] MEDS ORDERED: Z GUARD REMEDY 2 OZ OINT TP PRN (18:00)
[2018-05-06] MEDS ORDERED: HYDROCODONE/APAP 5/325MG 1 EACH TABLET PO PRN (18:00)
[2018-05-06] MEDS: THYROID 30 MG TABLET PO SCH (18:00)
[2018-05-06] MEDS ORDERED: MAGNESIUM HYDROXIDE 30 ML UDC PO PRN (18:00)
[2018-05-06] MEDS ORDERED: ONDANSETRON HCL/PF 4 MG/2 ML VIAL IVP PRN (18:00)
--- NOTE | 2018-05-06 18:00 | NUR ---
RN NOTES INITIAL: RECEIVED FROM ER, ALERT, AWAKE AND ORIENTED. ON RA. BREATH SOUNDS CLEAR. HL ON LH GAUGE 22. ABDOMEN SOFT, BOWEL SOUNDS POSITIVE, HAD BM TODAY. VOIDING WELL. AMBULATES WITH STEADY GAIT. NO NOTED EDEMA. SKIN INTACT. PT HAS MULTIPLE ALLERGIES REGARDING HAND CLEANSERS AND SCENTS, STATED TROUBLE BREATHING WHEN IN CLOSE CONTACT WITH ITEMS. REFUSED ALL NEEDLE STICKS FROM LABS, DR KNOX AWARE. AT BEDSIDE. WILL CONTINUE TO MONITOR.
[2018-05-06] MEDS: IV NS 0.9% 1,000 ML IV PRN (18:08)
--- NOTE | 2018-05-06 18:24 | NUR ---
RN NOTES: SALINE BOLUS STARTED AT 500 ML/HR AND CEFEPIME AT 100 ML/HR ORDERED. WILL RE SCAN WHEN BAR CODE IS AVAILABLE FROM PHARMACY.
[2018-05-06] MEDS: POTASSIUM CHLORIDE 10 MEQ TABLET.SA PO SCH (18:37)
[2018-05-06] MEDS ORDERED: FEE PK DOSING 1 MIN EA MC ONE (18:39)
[2018-05-06] MEDS: CEFEPIME 1 GM in IV NS 0.9% 50 ML IV SCH (19:33)
[2018-05-06 20:00] VITALS: BP 128/72
[2018-05-07] VITALS (8 sets, daily range): BP systolic 103–128; BP diastolic 53–78
--- NOTE | 2018-05-07 04:00 | NUR ---
RN NOTES PATIENT REFUSED VITAL SIGNS FOR 04:00 EXPLAINED RISKS AND BENEFITS AND OFFERED 3X AND STILL REFUSED
--- NOTE | 2018-05-07 06:00 | NUR ---
rn notes PATIENT REFUSED LAB DRAW. EXPLAINED RISKS AND BENEFITS AND OFFERED 3 X. STILL REFUSED
--- NOTE | 2018-05-07 07:30 | NUR ---
RN OPENING NOTES RECEIVED PT. PT IS STABLE AND RESTING IN BED. NO S/S OF RESP DISTRESS OR SOB. NO C/O PAIN AT THIS TIME. IV [id number] LOCATED ON LEFT HAND 22G CURRENTLY INFUSING NS AT 75 ML/HR. PER DUSTER TENDER REPORT PT HAS REFUSED AM LABS, WILL F/U. SAFETY MEASURES IN PLACE, CALL LIGHT IN REACH. WILL CONTINUE TO MONITOR.
[2018-05-07] MEDS ORDERED: VANCOMYCIN 0.75 GM in IV D5W 250 ML IV SCH (08:00)
[2018-05-07] MEDS: THYROID 30 MG TABLET PO SCH ×2 (08:03→08:41)
[2018-05-07] MEDS: POTASSIUM CHLORIDE 10 MEQ TABLET.SA PO SCH (08:03)
--- NOTE | 2018-05-07 08:45 | NUR ---
RN NOTES PER REQUEST OF PT, ASSIGNMENT HANDED OFF TO TONY COOPER. PT CLAIMS THAT SHE CAN SMELL A CHEMICAL FRAGRANCE UPON MY ENTRANCE INTO THE ROOM.
[2018-05-07] MEDS ORDERED: POTASSIUM CHLORIDE 20 MEQ TAB.PRT.SR PO ONE (09:00)
--- NOTE | 2018-05-07 09:36 | NUR ---
PATIENT REQUESTED TO CHANGE HER NURSE THREE TIMES PER PT."I CANNOT STAND THE SMELL".EXPLAINED THAT WE ARE WASHING HANDS,USES SOAP AND IT IS A HOSPITAL PROTOCOL, ALERTED , ,DIRECTOR NOTIFIED.
--- NOTE | 2018-05-07 09:40 | NUR ---
PROFESSOR OF ARCHAEOLOGY NOTES RECEIVED REPORT FROM GLORIA JIMENEZ FOR SHANIA.
--- NOTE | 2018-05-07 10:29 | NUR ---
LENS GRINDER AND POLISHER NOTES PATIENT'S IV INFILTRATED BUT REFUSED TO HAVE A REINSERTION. CHARGE NURSE VANDANA TOTH. NOTIFIED.
--- NOTE | 2018-05-07 10:50 | NUR ---
paper and pulp mill worker met with this patient in view of reports that pt. is demanding different nurses and is refusing to allow any chemicals to be used in or near her hospital room. Met with this patient briefly. She alleges she " has cancer of the colon and it has spread to her breasts". Patient says she has been going from ER to ER with no resolution. When asked is she has any depression, she responded that she is " very anxious about her condition but has not received any help." Patient is vague but states that she has been trying to get in to see Dr Turpin (?) an oncologist. [facility] dorector was present for some of this meeting and was obtaining information on patient's medical history and physician's. Patient is a poor historian and is unable to validate any information regarding her alleged " allergies and sensitivity to smells and chemicals" that she has reported to all nursing staff. There does appear to be a possible emotional and psychiatric component here and patient would benefit from a consultation from a psychiatrist. Jayda albrecht RN will discuss this with Dr Ibrahim. More information needs to be gathered to make a determination about this patient. No need for crisis team evaluation. Summer LÓPEZ will also follow up with patient to obtain more information regarding patient's situation.
--- NOTE | 2018-05-07 12:24 | NUR ---
DISCUSSED WITH DR. THEODORE REGARDING PSYCHE CONSULT PER MD NO NEED FOR NOW.
--- NOTE | 2018-05-07 14:25 | NUR ---
CORRECTIONAL SECURITY OFFICER NOTES ALISHA LIZ ICU NURSE AT BEDSIDE EARLIER FOR PERIPHERAL IV INSERTION BUT PATIENT REFUSED, DESPITE EXPLAINING THE NECESSITY.
--- NOTE | 2018-05-07 15:25 | NUR ---
CHILD WELFARE MANAGER NOTES PATIENT SEEN BY DR. CHONG. SPOKE WITH DR. KNOX REGARDING PATIENT REFUSING IV REINSERTION FOR HER IV ATB. PER MD, HE WILL ORDER A PICC LINE OR MIDLINE INSERTION.
--- NOTE | 2018-05-07 16:47 | NUR ---
SWIMMING POOL PLASTERER HELPER NOTES ORDER PLACED FOR DR. KNOX FOR PICC LINE INSERTION. CHARGE NURSE VANDANA HAIRSTNO MICROBIOLOGICAL LAB TECHNICIAN NOTIFIED.
--- NOTE | 2018-05-07 18:11 | NUR ---
TECHNICIAN AUTOMATIC NOTES SPOKE WITH JUAN CARLOS INFECTIOUS DISEASE CUSTOMER EXPERIENCE SPECIALIST RE PATIENT WOULD BE NEEDING MIDLINE INSTEAD OF A PICC LINE. DR. BENITO AWARE PER JUAN CARLOS.
[2018-05-07] MEDS: FLUCONAZOLE (100 MG) 100 MG TABLET PO SCH (18:24)
[2018-05-07] MEDS: NYSTATIN (PYXIS) 500,000 UNIT/5 ML ORAL.SUSP PO SCH (18:24)
--- NOTE | 2018-05-07 18:39 | NUR ---
RECREATION ACTIVITIES COORDINATOR NOTES: PT REFUSED TO SIGN CONSENT FOR MIDLINE INSERTION, PER PT SHE WANTS THE MIDLINE NURSE TO EXPLAIN TO HER THE PROCEDURE. CHARGE NURSE VANDANA AND ACCOUNT CONTACT ASSOCIATE YOVANNY TOTH.
--- NOTE | 2018-05-07 18:41 | NUR ---
ACCOUNT AUDITOR NOTES: PT ALERT AND ORIENTED X3. ABLE TO MAKE NEEDS KNOWN. FAMILY MEMBER AT BEDSIDE DURING THIS TIME. NO ACUTE DISTRESS NOTED. NO COMPLAINTS OF PAIN OR DISCOMFORT AT THIS TIME. KEPT CLEAN, DRY AND COMFORTABLE. SAFETY AND FALL PRECAUTIONS OBSERVED AND MAINTAINED. CALL LIGHT PLACED WITHIN REACH. ALL NEEDS ATTENDED. WILL ENDORSE TO GLASS CUTTING MACHINE FEEDER NURSE FOR CONTINUITY OF CARE.
[2018-05-07] MEDS: CEFEPIME 1 GM in IV NS 0.9% 50 ML IV SCH (20:00)
--- NOTE | 2018-05-07 20:54 | NUR ---
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 AGREES TO PLACE HAT ON TOILET SEAT FOR URINE COLLECTION BUT THEN SHE TAKES OFF THE HAT FROM THE TOILET SEAT ON PUTS THEM IN THE TABLE. EXPLAINED THE NECESSITY TO LEAVE THE HAT IN THE TOILET SEAT TO COLLECT URINE AGREES BUT STILL TAKES OFF THE HAT FROM THE TOILET SEAT.
--- NOTE | 2018-05-07 21:00 | NUR ---
RN NOTES PATIENT REFUSED INSERTION OF IV ACCESS. EXPLAINED RISKS AND BENEFITS AND OFFERED 3 X AND STILL REFUSED. PATIENT WANTS TO SPEAK WITH MIDLINE NURSE FIRST TO SEE IF PATIENT WILL CONSENT MIDLINE INSERTION.
--- NOTE | 2018-05-07 23:24 | NUR ---
RN NOTES PATIENT REFUSED LAB DRAW. EXPLAINED RISKS AND BENEFITS AND OFFERED 3 X AND STILL REFUSED
[2018-05-08] VITALS: BP 129/76
--- NOTE | 2018-05-08 | NUR ---
RN NOTES PATIENT REFUSED TAKING BLOOD PRESSURE,RESPIRATIONS, AND HEART RATE. PATIENT ONLY AGREED TAKING OF TEMPERATURE. EXPLAINED RISKS AND BENEFITS AND OFFERED 3 X AND STILL REFUSED
--- NOTE | 2018-05-08 06:00 | NUR ---
RN NOTES PATIENT REFUSED BLOOD DRAW FOR LAB WORK. EXPLAINED RISKS AND BENEFITS, OFFERED 3 X AND STILL REFUSED
--- NOTE | 2018-05-08 07:44 | NUR ---
COMMERCIAL ASSISTANT NOTES: RECEIVED PT ON BED ASLEEP. NO APPARENT DISTRESS NOTED. NO COMPLAINTS OF PAIN OR DISCOMFORT AT THIS TIME. BREATHING EVEN AND UNLABORED WITH NORMAL RESPIRATIONS. ON TELE MONITOR, SINUS RHYTHM 86HR. SIDE RAILS UP X2. BED LOCKED AND IN LOWEST POSITION. CALL LIGHT PLACED WITHIN REACH. WILL CONTINUE TO MONITOR.
[2018-05-08 08:00] VITALS: BP 115/54
[2018-05-08] MEDS: THYROID 30 MG TABLET PO SCH (09:00)
[2018-05-08] MEDS: NYSTATIN (PYXIS) 500,000 UNIT/5 ML ORAL.SUSP PO SCH ×3 (09:05→17:28)
[2018-05-08] MEDS: POTASSIUM CHLORIDE 10 MEQ TABLET.SA PO SCH (09:06)
--- NOTE | 2018-05-08 09:15 | NUR ---
ACTOR UNDERSTUDY NOTES: PT REFUSED TO TAKE HER 0900 SYNTHROID MED, EXPLAINED RISKS AND BENEFITS BUT STILL PT REFUSED.
--- NOTE | 2018-05-08 09:17 | NUR ---
BELLING MACHINE OPERATOR NOTES: PT REFUSED TO HAVE HER VITAL SIGNS TAKEN 3X, EXPLAINED RISKS AND BENEFITS PT STILL REFUSED. PT ALSO REFUSED TO TAKE OUT HER IV, 2 RN ATTEMPTED TO TAKE OUT HER LINE BUT STILL REFUSING AND NON COMPLIANT TO CARE. WILL CONTINUE TO MONITOR AND ENCOURAGE PT.
--- NOTE | 2018-05-08 10:28 | NUR ---
TROLLEY CLEANER NOTE REPORT GIVEN ROME HECK RN
--- NOTE | 2018-05-08 10:36 | NUR ---
SW attempted to meet with pt. bedside for a psychosocial assessment. However, pt. informed SW that her perfume is lingering and to leave the room. NAVEED was unable to assess the pt.
--- NOTE | 2018-05-08 10:45 | NUR ---
TOWER HOIST OPERATOR NOTES GOT REPORT FROM HECTOR JIMENEZ .NPO FOR ULTRASOUND AT 1500.AXOX4.IV HEPLOCK ON LFA.WAITING FOR MIDLINE INSERTION.CALL LIGHT IN REACH,BED IS LOW AND IN LOCKED POSITION.SRX3.WILL CONTINUE TO MONITOR.
[2018-05-08 12:00] VITALS: BP 112/60
[2018-05-08 14:55] LABS: BASOPHILS % (AUTO) 0.5 % (0.0-2.0); EOSINOPHILS % (AUTO) 0.1 % (0.0-6.0); HEMATOCRIT 27 % (33-45); HEMOGLOBIN 8.9 g/dL (11.5-14.8); LYMPHOCYTES # (AUTO) 0.7 /CMM (0.8-4.8); LYMPHOCYTES % (AUTO) 10.8 % (20.0-44.0); MEAN CORPUSCULAR HEMOGLOBIN 27 PG (26.0-33.0); MEAN CORPUSCULAR HGB CONC 33 g/dl (31.0-36.0); MEAN CORPUSCULAR VOLUME 84 fL (82-100); MONOCYTES # (AUTO) 0.7 /CMM (0.1-1.30); MONOCYTES % (AUTO) 9.8 % (2.0-12.0); NEUTROPHILS # (AUTO) 5.3 /CMM (1.8-8.9); NEUTROPHILS % (AUTO) 78.8 % (43.0-81.0); PLATELET COUNT (AUTO) 253 /CMM (150-450); RED BLOOD CELL COUNT(AUTO) 3.23 MIL/uL (4.0-5.2); WHITE BLOOD COUNT (AUTO) 6.7 K/uL (4.3-11.0)
[2018-05-08 16:00] VITALS: BP 110/70
[2018-05-08] MEDS: FLUCONAZOLE (100 MG) 100 MG TABLET PO SCH (17:28)
--- NOTE | 2018-05-08 19:30 | NUR ---
THERMOMETER TESTER SHIFT END NOTES PATIENT IN BED.AXOX4.MIDLINE INSERTED ON RADHA.REFUSED IV FLUID..CALL LIGHT IN REACH,BED IS LOW AND IN LOCKED POSITION.SRX3.ENDORSED TO PM NURSE FOR SHANIA AND FOLLOW UP WITH ULTRASOUND RESULT.
[2018-05-08 20:00] VITALS: BP 124/76
--- NOTE | 2018-05-08 20:10 | NUR ---
RN NOTES RECEIVED PATIENT AWAKE IN BED WITH FAMILY AT BEDSIDE. NO DISTRESS NOTED. BREATHING EVEN AND UNLABORED. ON ROOM AIR TOLERATING WELL. NO COMPLAINT OF PAIN OF THIS TIME. ALERT AND ORIENTED. ABLE TO VERBALLY COMMUNICATE NEEDS. KEPT CLEAN AND DRY. WILL CONTINUE TO MNONITOR.
[2018-05-08] MEDS: CEFEPIME 1 GM in IV NS 0.9% 50 ML IV SCH (22:04)
[2018-05-09] VITALS: BP 134/73
[2018-05-09 00:30] VITALS: BP 134/73
[2018-05-09] MEDS: IV NS 0.9% 1,000 ML IV PRN ×2 (02:03→10:32)
[2018-05-09 04:00] VITALS: BP_SYST 107; BP_SYST 128; BP_DIAS 51; BP_DIAS 73
--- NOTE | 2018-05-09 06:49 | NUR ---
RN CLOSING NOTES IN BED, NO DISTRESS NOTED. NO PHYSICAL MANIFESTATION OF PAIN OR DISCOMFORT. BREATHING EVEN AND UNLABORED. NO SIGNIFICANT CHANGE OF CONDITION. VITAL SIGNS WNL. WILL ENDORSE TO AM SHIFT FOR CONTINUITY OF CARE.
--- NOTE | 2018-05-09 07:30 | NUR ---
ADVERTISING TRAFFIC MANAGER OPENING NOTES PATIENT IN BED.AXOX4.MIDLINE RADHA..CALL LIGHT IN REACH,BED IS LOW AND IN LOCKED POSITION.ON TELE MONITOR WITH SR 78.SRX3.WILL CONTINUE TO MONITOR.
[2018-05-09 08:00] VITALS: BP 121/71
[2018-05-09] MEDS: THYROID 30 MG TABLET PO SCH (09:00)
[2018-05-09] MEDS: NYSTATIN (PYXIS) 500,000 UNIT/5 ML ORAL.SUSP PO SCH ×3 (09:03→17:20)
[2018-05-09] MEDS: POTASSIUM CHLORIDE 10 MEQ TABLET.SA PO SCH (09:05)
--- NOTE | 2018-05-09 13:00 | NUR ---
RN NOTE SEEN BY .GOT DISCHARGE ORDER.WAITING FOR STOOL TEST STILL PENDING.PATIENT MADE AWARE.
[2018-05-09] MEDS: FLUCONAZOLE (100 MG) 100 MG TABLET PO SCH (17:20)
--- NOTE | 2018-05-09 18:50 | NUR ---
TAMPING MACHINE OPERATOR ROAD FORMS NOTE PATIENT DISCHARGED TO HOME IN STABLE CONDITION.NO SOB NO DISTRESS NOTED.ALL BELONGINGS TAKEN BY THE PATIENT.DISCHARGE INSTRUCTIONS GIVEN TO THE PATIENT.VERBALIZED UNDERSTANDING .SIGNED ALL PAPER WORK.INFORMED TO FOLLOW UP WITH CHEMOTHERAPY.PRESCRIPTION FAXED TO PATIENT PHARMACY.SPOKE TO BEL .CONFIRMED THAT RECEIVED THE FAX.PATIENT MADE AWARE.MIDLINE REMOVED.MINIMAL BLEEDING NOTED.PRESSURE DRESSING APPLIED.DISCHARGED WITH FRIEND
== END 2018-05-09 19:10 | disposition home or self-care (01) | DRG 181 ==
LOC: ER 14:38 → TELE1 17:05 → MEDSG1 05-09 09:06
PROVIDERS: ADMIT Internal Medicine; ATTEND Internal Medicine
PROC: 05H633Z Insertion of Infusion Device into Left Subclavian Vein, Percutaneous Approach (ICD-10-PCS; principal; 2018-05-08)
PROC: B547ZZA Ultrasonography of Left Subclavian Vein, Guidance (ICD-10-PCS; 2018-05-08)
DX: C78.01 Secondary malignant neoplasm of right lung (principal); C78.7 Secondary malignant neoplasm of liver and intrahepatic bile duct; R65.10 Systemic inflammatory response syndrome (SIRS) of non-infectious origin without acute organ dysfunction; B37.0 Candidal stomatitis; C79.51 Secondary malignant neoplasm of bone; C78.02 Secondary malignant neoplasm of left lung; R50.9 Fever, unspecified; D64.9 Anemia, unspecified; E87.6 Hypokalemia; M79.7 Fibromyalgia; E03.9 Hypothyroidism, unspecified; Z88.4 Allergy status to anesthetic agent; Z88.1 Allergy status to other antibiotic agents; Z79.899 Other long term (current) drug therapy; F06.4 Anxiety disorder due to known physiological condition; Z85.038 Personal history of other malignant neoplasm of large intestine
CPT/HCPCS: 36415; 36569; 70450-TC; 71045-TC; 76700-TC; 80048-TC; 80076-TC; 81000-TC; 82962-TC; 83605-TC; 83735-TC; 84484-TC; 85025-TC; 85730-TC; 87040-TC; 87086-TC; 87177; 87209; A4216; A4606; J0692; J3370; J3490; J7030; J7060; Z7610

== ENCOUNTER 2018-05-20 01:25 | Inpatient (IN) | payer MEDICARE, OTHER ==
[~2018-05-20] VITALS: Ht 170.2 cm; Wt 69.4 kg
[~2018-05-20 01:25] MED LIST changes: -IBUP200C76 PO; +POTA10CA43 PO
--- NOTE | 2018-05-20 01:35 | NUR ---
PT BIB [facility] C/C GENERALIZED WEAKNESS AND COMPLAINING OF LOW BLOOD SUGAR. PT STATES," I TOOK MY BLOOD SUGAR AT HOME AND IT WAS 27." NAD. VSS. STABLE CONDITION. AWAITING EVAL/ ORDERS.
--- NOTE | 2018-05-20 01:40 | NUR ---
LAB AT BEDSIDE
[2018-05-20] MEDS ORDERED: IV D5W 1,000 ML IV ONE (01:49)
[2018-05-20 02:40] LABS: BASOPHILS % (AUTO) 0.1 % (0.0-2.0); EOSINOPHILS % (AUTO) 0.2 % (0.0-6.0); HEMATOCRIT 28 % (33-45); HEMOGLOBIN 9.1 g/dL (11.5-14.8); LYMPHOCYTES # (AUTO) 0.6 /CMM (0.8-4.8); LYMPHOCYTES % (AUTO) 6.6 % (20.0-44.0); MEAN CORPUSCULAR HEMOGLOBIN 27 PG (26.0-33.0); MEAN CORPUSCULAR HGB CONC 32 g/dl (31.0-36.0); MEAN CORPUSCULAR VOLUME 83 fL (82-100); MONOCYTES # (AUTO) 0.5 /CMM (0.1-1.30); MONOCYTES % (AUTO) 5.2 % (2.0-12.0); NEUTROPHILS # (AUTO) 8.6 /CMM (1.8-8.9); NEUTROPHILS % (AUTO) 87.9 % (43.0-81.0); PLATELET COUNT (AUTO) 313 /CMM (150-450); RDW COEFFICIENT OF VARIATION 19.4 (11.5-15.0); RED BLOOD CELL COUNT(AUTO) 3.41 MIL/uL (4.0-5.2); WHITE BLOOD COUNT (AUTO) 9.8 K/uL (4.3-11.0)
[2018-05-20 02:59] LABS: INR 1.09 (0.87-1.13)
[2018-05-20 03:03] LABS: ALBUMIN 1.8 g/dL (3.4-5.0); BILIRUBIN,TOTAL 0.5 mg/dL (0.2-1.0); CALCIUM, SERUM 9.1 mg/dL (8.5-10.1); CREATININE 0.8 mg/dL (0.6-1.3); TOTAL PROTEIN, SERUM 6.5 g/dL (6.4-8.2)
--- NOTE | 2018-05-20 03:07 | NUR ---
D5W SLOWED TO A RATE OF 100ML/HR PER VERBAL ORDERS BY .
[2018-05-20 03:12] LABS: POTASSIUM 2.6 mmol/L (3.5-5.1)
[2018-05-20] MEDS ORDERED: POTASSIUM CHLORIDE 20 MEQ TAB.PRT.SR PO ONE ×3 (03:20→14:00)
[2018-05-20] MEDS ORDERED: IV PREMIX D5 1/2NS + KCL 1,000 ML IV ONE ×2 (03:22→03:44)
--- NOTE | 2018-05-20 04:01 | NUR ---
PT BROUGHT TO CT
--- NOTE | 2018-05-20 04:25 | NUR ---
PT TRANSP TO [facility] STABLE CONDITION. VSS. STABLE CONDITION.
[2018-05-20 04:30] VITALS: BP 119/70
--- NOTE | 2018-05-20 04:30 | NUR ---
REPORT GIVEN TO TONY GARNICA
--- NOTE | 2018-05-20 05:00 | NUR ---
POWERHOUSE MECHANIC HELPER NOTE PT RECEIVED A/O X4 AND ABLE TO VERBALIZE NEEDS WITH FRIEND AT BEDSIDE. ON ROOM AIR AND SATURATING WELL. BREATHING REGULAR, EVEN AND UNLABORED. NO C/O PAIN OR DISCOMFORT NOTED. TELE-SR 90'S. IV RAC #20 CLEAN, DRY AND PATENT WITH FLUIDS INFUSING. BLOOD SUGAR CHECKED TWICE BS 39 AND RECHECKED BS 44. NO S/SX OF HYPOGLYCEMIA NOTED. ABLE TO AMBULATE SAFELY TO THE RESTROOM. WILL F/U WITH DR. KNOX REGARDING ORDERS. CALL LIGHT WITHIN REACH. WILL CONTINUE TO MONITOR.
[2018-05-20] MEDS ORDERED: DEXTROSE 50%-WATER 50 ML DISP.SYRIN ONE ×2 (05:27→10:50)
--- NOTE | 2018-05-20 05:30 | NUR ---
RN NOTES [address] KNOX, GIVE 1 AMP OF D50. D50 ADMINISTERED, TOLERATED WELL 0547 BLOOD GLUCOSE CHECKED, 152 AT THIS TIME. PATIENT REMAINS A/O X4, DENIES ANY PAIN OR DISCOMFORT AT THIS TIME
[2018-05-20] MEDS ORDERED: DEXTROSE 50%-WATER 50 ML DISP.SYRIN IVP STA (05:33)
[2018-05-20] MEDS ORDERED: MAG HYDROX/AL HYDROX/SIMETH 30 ML UDC PO PRN (06:00)
[2018-05-20] MEDS ORDERED: ONDANSETRON HCL/PF 4 MG/2 ML VIAL IVP PRN (06:00)
[2018-05-20] MEDS ORDERED: MAGNESIUM HYDROXIDE 30 ML UDC PO PRN (06:00)
[2018-05-20] MEDS ORDERED: HYDROCODONE/APAP 5/325MG 1 EACH TABLET PO PRN (06:00)
[2018-05-20] MEDS ORDERED: Z GUARD REMEDY 2 OZ OINT TP PRN (06:00)
[2018-05-20] MEDS ORDERED: ZOLPIDEM TARTRATE 5 MG TABLET PO PRN (06:00)
[2018-05-20 08:00] VITALS: BP 144/79
[2018-05-20] MEDS: THYROID 30 MG TABLET PO SCH ×2 (09:00→09:28)
[2018-05-20] MEDS: POTASSIUM CHLORIDE 10 MEQ TABLET.SA PO SCH (09:28)
--- NOTE | 2018-05-20 09:43 | NUR ---
RN NOTE PT REFUSED THYROID MED STATING THAT SHE IS TAKING ARMOR FOR THYROID. WILL FOLLOW UP WITH MD.
[2018-05-20] MEDS: DEXTROSE 50%-WATER 50 ML DISP.SYRIN IVP ONE ×2 (10:52→11:00)
--- NOTE | 2018-05-20 11:00 | NUR ---
RN NOTE PT HAD R AC 20 G IV INFILTRATED, ATTEMPTED TO GET IV ACCESS X4, UNSUCCESSFUL EVEN WITH SMALLEST GAUGE, MIDLINE INSERTION REQUESTED, STRAIGHT EDGER APPROVED, AND MIDLINE WAS PLACED IN L UPPER ARM.
[2018-05-20 12:00] VITALS: BP 127/62
[2018-05-20] MEDS: BLOOD SUGAR DIAGNOSTIC 1 EACH STRIP IN SCH ×3 (13:23→20:38)
[2018-05-20] MEDS: DEXTROSE 50%-WATER 50 ML DISP.SYRIN IVP PRN ×3 (13:25→20:37)
[2018-05-20] MEDS: IV D5/0.45 NACL 1,000 ML IV PRN (14:29)
[2018-05-20 16:00] VITALS: BP 133/79
[2018-05-20] MEDS ORDERED: GLUCAGON,HUMAN RECOMBINANT 1 MG/VIAL VIAL IV ONE (18:00)
[2018-05-20 20:00] VITALS: BP 131/74
--- NOTE | 2018-05-20 20:30 | NUR ---
SLASHER HAND NOTE PT AWAKE AND ALERT X4 WITH FRIEND AT BEDSIDE. DR. RODRIGES CONSULTING AT BEDSIDE. SEEN AND EVALUATED BY DR RODRIGES. BLOOD SUGAR [address] RODRIGES. D50 GIVEN X1 IVP. NOTED TO BE SLIGHTLY WEAK. NO OTHER S/SX'S OF HYPOGLYCEMIA NOTED. JUICE ALSO GIVEN AT BEDSIDE. WILL RECHECK.
[2018-05-21] VITALS: BP 136/69
[2018-05-21] MEDS: BLOOD SUGAR DIAGNOSTIC 1 EACH STRIP IN SCH ×7 (00:22→21:00)
[2018-05-21] MEDS: DEXTROSE 50%-WATER 50 ML DISP.SYRIN IVP PRN ×5 (00:29→22:00)
[2018-05-21] MEDS: IV D5/0.45 NACL 1,000 ML IV PRN ×2 (02:17→18:44)
[2018-05-21 04:00] VITALS: BP 116/62
[2018-05-21 06:45] LABS: BASOPHILS % (AUTO) 0.1 % (0.0-2.0); HEMATOCRIT 24 % (33-45); HEMOGLOBIN 7.6 g/dL (11.5-14.8); LYMPHOCYTES # (AUTO) 0.8 /CMM (0.8-4.8); LYMPHOCYTES % (AUTO) 10.7 % (20.0-44.0); MEAN CORPUSCULAR HEMOGLOBIN 27 PG (26.0-33.0); MEAN CORPUSCULAR HGB CONC 32 g/dl (31.0-36.0); MEAN CORPUSCULAR VOLUME 82 fL (82-100); MONOCYTES # (AUTO) 0.6 /CMM (0.1-1.30); MONOCYTES % (AUTO) 8.1 % (2.0-12.0); NEUTROPHILS # (AUTO) 6.3 /CMM (1.8-8.9); NEUTROPHILS % (AUTO) 81.1 % (43.0-81.0); PLATELET COUNT (AUTO) 307 /CMM (150-450); RDW COEFFICIENT OF VARIATION 19.3 (11.5-15.0); RED BLOOD CELL COUNT(AUTO) 2.86 MIL/uL (4.0-5.2); WHITE BLOOD COUNT (AUTO) 7.8 K/uL (4.3-11.0)
[2018-05-21 07:09] LABS: ALBUMIN 1.6 g/dL (3.4-5.0); BILIRUBIN,TOTAL 0.5 mg/dL (0.2-1.0); CALCIUM, SERUM 8.7 mg/dL (8.5-10.1); CREATININE 0.6 mg/dL (0.6-1.3); MAGNESIUM 1.6 mg/dL (1.8-2.4); POTASSIUM 3.1 mmol/L (3.5-5.1); TOTAL PROTEIN, SERUM 5.6 g/dL (6.4-8.2)
[2018-05-21 07:19] LABS: THYROID STIMULATING HORMONE 3.37 uIU/mL (0.358-3.74)
[2018-05-21 08:00] VITALS: BP 125/79
[2018-05-21] MEDS: THYROID 30 MG TABLET PO SCH ×2 (08:40→09:00)
[2018-05-21] MEDS: POTASSIUM CHLORIDE 10 MEQ TABLET.SA PO SCH (08:40)
[2018-05-21 09:20] LABS: THYROID STIMULATING HORMONE 3.23 uIU/mL (0.358-3.74)
[2018-05-21] MEDS: POTASSIUM CHLORIDE 20 MEQ TAB.PRT.SR PO SCH ×2 (11:19→12:52)
[2018-05-21] MEDS: Magnesium 1GM/D5W 100ML PREMIX 100 ML IV SCH ×2 (11:19→12:52)
[2018-05-21 12:00] VITALS: BP 122/77
[2018-05-21 12:15] LABS: *C PEPTIDE 0.2 ng/mL (1.1-4.4); *C PEPTIDE 0.3 ng/mL (1.1-4.4); *INSULIN 0.6 uIU/mL (2.6-24.9); *INSULIN 0.9 uIU/mL (2.6-24.9)
[2018-05-21] MEDS: PROSOURCE / PROSTAT (PYXIS) 30 ML UDC PO SCH ×2 (12:53→17:00)
[2018-05-21] MEDS: HYDROCORTISONE SOD SUCCINATE 100 MG/2 ML VIAL IV SCH ×2 (13:00→17:00)
[2018-05-21] MEDS ORDERED: K PHOS NEUTRAL 250 MG TABLET PO ONE (13:30)
--- NOTE | 2018-05-21 14:00 | NUR ---
RN NOTE PT HAD PROSTAT/PROSOURCE PROTEIN SUPPLEMENT, AND VOMITTED AFTERWARD, SHE REFUSED TO GET THIS SUPPLEMENT IN THE FUTURE, WILL NOTIFY .
[2018-05-21] MEDS: ENSURE CLEAR 237 ML LIQUID (MIX BERRY) PO SCH ×3 (14:08→21:00)
[2018-05-21 16:00] VITALS: BP_SYST 121; BP_DIAS 75; BP_DIAS 76
[2018-05-21 18:09] LABS: HEMOGLOBIN 8.3 g/dL (11.5-14.8)
--- NOTE | 2018-05-21 19:30 | NUR ---
RN/TELE NOTES: RECEIVED PT. IN BED A/O X 4. W/ FRIEND AT BEDSIDE. DENIES ANY C/O CHEST PAIN OR SOB AT PRESENT. ON TELE MONITOR ST 108. CONTINENT OF B/B. ABLE TO AMBULATE W/ STEADY GAIT TO THE BATHROOM. RADHA MIDLINE G 18 PATENT AND INTACT W/ NO S/S OF INFECTION/INFILTRATION. D5 1/2 NS @ 75 ML/HR. WILL CONTINUE TO MONITOR. CALL LIGHT W/ REACH.
--- NOTE | 2018-05-21 19:34 | NUR ---
RN NOTE PT AOX4, REFUSED SOLU CORTEF STATITING THAT SHE CANNOT HAVE STEROIDS DUE TO REACTION IN THE PAST TO STEROIDS, BUT SHE COULD NOT RECALL WHICH ONE, TEACHINGS DONE TO PT STILL REFUSED, NOTIFIED.
[2018-05-21 20:00] VITALS: BP 111/70
[2018-05-21] MEDS ORDERED: DEXTROSE 10% IN WATER 250 ML BAG IV PRN (23:00)
[2018-05-22] VITALS: BP 132/72
[2018-05-22] MEDS: BLOOD SUGAR DIAGNOSTIC 1 EACH STRIP IN SCH ×6 (01:38→21:36)
[2018-05-22 04:00] VITALS: BP 145/94
--- NOTE | 2018-05-22 06:31 | NUR ---
TELE/RN NOTES: NO ACUTE CHANGES NOTED DURING THIS SHIFT. REPORT GIVEN TO AM NURSE FOR SHANIA.
--- NOTE | 2018-05-22 07:00 | NUR ---
RN NOTES: RECEIVED PT. ON BED, A/O X 4. RESPIRATION EVEN AND UNLABORED, ON RA, NO SOB NOTED, ON TELE HR IN 90'S SR , NO DISTRESS NOTED, LEFT UPPER ARM MIDLINE SITE CDI, WITH D10W AT 90CC/HR RUNNING , SR UP x3, CALL LIGHT WITHIN EASY REACH, BED LOCKED AND IN LOWEST POSITION , WILL CONTINUE TO MONITOR.
[2018-05-22 07:48] LABS: BASOPHILS % (AUTO) 0.1 % (0.0-2.0); EOSINOPHILS % (AUTO) 1.1 % (0.0-6.0); HEMATOCRIT 22 % (33-45); LYMPHOCYTES # (AUTO) 0.8 /CMM (0.8-4.8); LYMPHOCYTES % (AUTO) 12.5 % (20.0-44.0); MEAN CORPUSCULAR HEMOGLOBIN 27 PG (26.0-33.0); MEAN CORPUSCULAR HGB CONC 30 g/dl (31.0-36.0); MEAN CORPUSCULAR VOLUME 88 fL (82-100); MONOCYTES # (AUTO) 0.5 /CMM (0.1-1.30); MONOCYTES % (AUTO) 8.7 % (2.0-12.0); NEUTROPHILS # (AUTO) 4.6 /CMM (1.8-8.9); NEUTROPHILS % (AUTO) 77.6 % (43.0-81.0); PLATELET COUNT (AUTO) 195 /CMM (150-450); RDW COEFFICIENT OF VARIATION 19.3 (11.5-15.0); RED BLOOD CELL COUNT(AUTO) 2.47 MIL/uL (4.0-5.2)
[2018-05-22 07:55] LABS: HEMOGLOBIN 6.6 g/dL (11.5-14.8)
[2018-05-22 08:00] VITALS: BP 147/72
[2018-05-22] MEDS: POTASSIUM CHLORIDE 10 MEQ TABLET.SA PO SCH (08:01)
[2018-05-22] MEDS: FOLIC ACID 1 MG TABLET PO SCH (08:05)
[2018-05-22] MEDS: THYROID 30 MG TABLET PO SCH (08:18)
[2018-05-22] MEDS: HYDROCORTISONE SOD SUCCINATE 100 MG/2 ML VIAL IV SCH ×3 (08:18→16:02)
[2018-05-22] MEDS: ENSURE CLEAR 237 ML LIQUID (MIX BERRY) PO SCH ×4 (08:18→21:00)
[2018-05-22] MEDS: PROSOURCE / PROSTAT (PYXIS) 30 ML UDC PO SCH ×3 (08:18→16:14)
[2018-05-22 08:44] LABS: EOSINOPHILS % (AUTO) 1.4 % (0.0-6.0); HEMATOCRIT 25 % (33-45); HEMOGLOBIN 8.6 g/dL (11.5-14.8); LYMPHOCYTES # (AUTO) 1.2 /CMM (0.8-4.8); MEAN CORPUSCULAR HEMOGLOBIN 27 PG (26.0-33.0); MEAN CORPUSCULAR HGB CONC 34 g/dl (31.0-36.0); MEAN CORPUSCULAR VOLUME 81 fL (82-100); MONOCYTES # (AUTO) 0.6 /CMM (0.1-1.30); MONOCYTES % (AUTO) 7.7 % (2.0-12.0); NEUTROPHILS # (AUTO) 6.3 /CMM (1.8-8.9); NEUTROPHILS % (AUTO) 75.9 % (43.0-81.0); PLATELET COUNT (AUTO) 264 /CMM (150-450); RDW COEFFICIENT OF VARIATION 18.4 (11.5-15.0); RED BLOOD CELL COUNT(AUTO) 3.13 MIL/uL (4.0-5.2); WHITE BLOOD COUNT (AUTO) 8.2 K/uL (4.3-11.0)
[2018-05-22 08:56] LABS: CALCIUM, SERUM 8.8 mg/dL (8.5-10.1); CREATININE 0.5 mg/dL (0.6-1.3)
--- NOTE | 2018-05-22 09:00 | NUR ---
RN NOTES PT REFUSED AM CARE
[2018-05-22 09:09] LABS: ALBUMIN 1.8 g/dL (3.4-5.0); BILIRUBIN,DIRECT 0.2 mg/dL (0.0-0.2); BILIRUBIN,TOTAL 0.6 mg/dL (0.2-1.0)
[2018-05-22 10:28] LABS: LYMPHOCYTES % (MANUAL) 6 % (16-48); MONOCYTES % (MANUAL) 7 % (0-11.0); NEUTROPHILS % (MANUAL) 87 (42-76)
[2018-05-22 12:00] VITALS: BP 140/81
[2018-05-22] MEDS: IV 10% DEXTROSE 1,000 ML IV PRN (12:06)
--- NOTE | 2018-05-22 12:21 | NUR ---
RN NOTES BG=53, PT IS ALERT , REFUSED TO EAT , D 50 IV x1 GIVEN , TRISTIN CONTE MOBILE SECURITY SPECIALIST NOTIFED, CONTINUE TO MONITOR .
[2018-05-22] MEDS: DEXTROSE 50%-WATER 50 ML DISP.SYRIN IVP PRN (12:30)
--- NOTE | 2018-05-22 13:05 | NUR ---
RN NOTES BG =222 , NO DISTRESS NOTED , CONTINUE TO MONITOR .
[2018-05-22] MEDS ORDERED: POTASSIUM CHLORIDE 20 MEQ TAB.PRT.SR PO ONE (14:30)
[2018-05-22 16:00] VITALS: BP 132/81
--- NOTE | 2018-05-22 16:00 | NUR ---
RN NOTES PT REFUSED PM CARE .
--- NOTE | 2018-05-22 16:30 | NUR ---
RN NOTES PT REQUESTING TO SEE MD. TRISTIN CONTE NOTIFED.
--- NOTE | 2018-05-22 18:28 | NUR ---
RN NOTES FAMILY AT THE BEDSIDE, PT UP TO BATHROOM, NO DISTRESS NOTED, D10W AT 90CC/HR RUNNING VIA L UPPER ARM MIDLINE , WILL ENDOSE TO CHECKER PRODUCT DESIGN NURSE FOR SHANIA .
[2018-05-22 20:00] VITALS: BP 134/82
[2018-05-23] VITALS: BP 134/82
[2018-05-23] MEDS: BLOOD SUGAR DIAGNOSTIC 1 EACH STRIP IN SCH ×6 (00:42→21:45)
[2018-05-23] MEDS: IV 10% DEXTROSE 1,000 ML IV PRN ×2 (01:11→14:56)
[2018-05-23 04:00] VITALS: BP 143/81
[2018-05-23 06:22] LABS: EOSINOPHILS % (AUTO) 0.6 % (0.0-6.0); HEMATOCRIT 27 % (33-45); LYMPHOCYTES % (AUTO) 8.7 % (20.0-44.0); MEAN CORPUSCULAR HEMOGLOBIN 27 PG (26.0-33.0); MEAN CORPUSCULAR HGB CONC 33 g/dl (31.0-36.0); MEAN CORPUSCULAR VOLUME 81 fL (82-100); MONOCYTES # (AUTO) 0.7 /CMM (0.1-1.30); MONOCYTES % (AUTO) 5.7 % (2.0-12.0); NEUTROPHILS # (AUTO) 9.9 /CMM (1.8-8.9); PLATELET COUNT (AUTO) 284 /CMM (150-450); RDW COEFFICIENT OF VARIATION 18.1 (11.5-15.0); WHITE BLOOD COUNT (AUTO) 11.7 K/uL (4.3-11.0)
[2018-05-23 06:30] LABS: CALCIUM, SERUM 9.5 mg/dL (8.5-10.1); CREATININE 0.7 mg/dL (0.6-1.3); POTASSIUM 4.1 mmol/L (3.5-5.1)
--- NOTE | 2018-05-23 07:00 | NUR ---
RN NOTES: RECEIVED PT. ON BED, A/O X 4. RESPIRATION EVEN AND UNLABORED, NO DISTRESS NOTED, ON RA, ON TELE HR IN LOW 100'S, ST , LEFT UPPER ARM MIDLINE SITE CDI, WITH D10W AT 75 CC/HR RUNNING , SR UP x3, CALL LIGHT WITHIN EASY REACH, BED LOCKED AND IN LOWEST POSITION , WILL CONTINUE TO MONITOR.
[2018-05-23 08:00] VITALS: BP 133/80
[2018-05-23] MEDS: POTASSIUM CHLORIDE 10 MEQ TABLET.SA PO SCH (08:31)
[2018-05-23] MEDS: HYDROCORTISONE SOD SUCCINATE 100 MG/2 ML VIAL IV SCH ×3 (08:32→16:21)
[2018-05-23] MEDS: FOLIC ACID 1 MG TABLET PO SCH (08:32)
[2018-05-23] MEDS: FERROUS SULFATE (325 MG) 325 MG/TAB TABLET PO SCH ×2 (08:33→16:21)
[2018-05-23] MEDS: THYROID 30 MG TABLET PO SCH (08:44)
[2018-05-23] MEDS: ENSURE CLEAR 237 ML LIQUID (MIX BERRY) PO SCH ×4 (08:44→21:00)
[2018-05-23] MEDS: PROSOURCE / PROSTAT (PYXIS) 30 ML UDC PO SCH ×3 (08:44→16:22)
[2018-05-23 12:00] VITALS: BP 131/78
--- NOTE | 2018-05-23 12:10 | NUR ---
RN NOTES TRISTIN CONTE BOOKING CLERK NOTIFED REGARDING BG 169 . NO NEW ORDER RECEIVED .
[2018-05-23 16:00] VITALS: BP 123/85
--- NOTE | 2018-05-23 18:14 | NUR ---
RN NOTES PT STABLE , D10W AT 75CC/HR RUNNING VIA L UPPER ARM MIDLINE, NO DISTRESS NOTED, SR UP x2, BED LOCKED AND IN LOWEST POSITION , WILL ENDOSE TO RN MATERNITY NURSE FOR SHANIA .
--- NOTE | 2018-05-23 19:30 | NUR ---
RN/TELE NOTES: RECEIVED PT. IN BED A/O X 4. W/ FRIEND AT BEDSIDE. DENIES ANY C/O CHEST PAIN OR SOB AT PRESENT. ON TELE MONITOR SR 95. CONTINENT OF B/B. ABLE TO AMBULATE W/ STEADY GAIT TO THE BATHROOM. RADHA MIDLINE G 18 PATENT AND INTACT W/ NO S/S OF INFECTION/INFILTRATION. D 10W @ 75 ML/HR. WILL CONTINUE TO MONITOR. CALL LIGHT W/ REACH.
[2018-05-23 20:00] VITALS: BP 131/79
[2018-05-24] VITALS: BP_SYST 106; BP_SYST 134; BP_DIAS 58; BP_DIAS 84
[2018-05-24] MEDS: BLOOD SUGAR DIAGNOSTIC 1 EACH STRIP IN SCH ×6 (01:20→21:43)
[2018-05-24 04:00] VITALS: BP 130/83
[2018-05-24] MEDS: IV 10% DEXTROSE 1,000 ML IV PRN (04:59)
--- NOTE | 2018-05-24 07:14 | NUR ---
IT TECHNICAL ARCHITECT NOTES: RECEIVED PT ASLEEP. NO ACUTE DISTRESS NOTED. NO COMPLAINTS OF PAIN OR DISCOMFORT. BREATHING EVEN AND UNLABORED WITH NORMAL RESPIRATIONS. ON TELE MONITOR, SINUS RHYTHM HR 95. RADHA MIDLINE INTACT AND PATENT, WITH IVF D10W RUNNING AT 75ML/HR, INFUSING WELL. KEPT CLEAN, DRY AND COMFORTABLE. SAFETY AND FALL PRECAUTIONS OBSERVED AND MAINTAINED. CALL LIGHT PLACED WITHIN REACH. WILL CONTINUE TO MONITOR PT.
--- NOTE | 2018-05-24 07:19 | NUR ---
TELE/ RN NOTES: NO ACUTE CHANGES NOTED DURING THIS SHIFT. REPORT GIVEN TO AM NURSE FOR SHANIA.
[2018-05-24 07:35] LABS: BASOPHILS % (AUTO) 0.1 % (0.0-2.0); EOSINOPHILS % (AUTO) 0.1 % (0.0-6.0); HEMATOCRIT 26 % (33-45); HEMOGLOBIN 8.6 g/dL (11.5-14.8); LYMPHOCYTES % (AUTO) 8.8 % (20.0-44.0); MEAN CORPUSCULAR HEMOGLOBIN 27 PG (26.0-33.0); MEAN CORPUSCULAR HGB CONC 33 g/dl (31.0-36.0); MEAN CORPUSCULAR VOLUME 81 fL (82-100); MONOCYTES # (AUTO) 0.8 /CMM (0.1-1.30); MONOCYTES % (AUTO) 7.3 % (2.0-12.0); NEUTROPHILS # (AUTO) 9.8 /CMM (1.8-8.9); NEUTROPHILS % (AUTO) 83.7 % (43.0-81.0); PLATELET COUNT (AUTO) 287 /CMM (150-450); RDW COEFFICIENT OF VARIATION 18.7 (11.5-15.0); RED BLOOD CELL COUNT(AUTO) 3.22 MIL/uL (4.0-5.2); WHITE BLOOD COUNT (AUTO) 11.6 K/uL (4.3-11.0)
[2018-05-24 08:00] VITALS: BP 139/88
[2018-05-24 08:04] LABS: CALCIUM, SERUM 9.6 mg/dL (8.5-10.1); CREATININE 0.6 mg/dL (0.6-1.3); POTASSIUM 3.8 mmol/L (3.5-5.1)
[2018-05-24] MEDS: ENSURE CLEAR 237 ML LIQUID (MIX BERRY) PO SCH ×4 (08:46→21:43)
[2018-05-24] MEDS: HYDROCORTISONE SOD SUCCINATE 100 MG/2 ML VIAL IV SCH ×4 (08:46→17:38)
[2018-05-24] MEDS: FERROUS SULFATE (325 MG) 325 MG/TAB TABLET PO SCH ×3 (08:47→17:00)
[2018-05-24] MEDS: FOLIC ACID 1 MG TABLET PO SCH (08:47)
[2018-05-24] MEDS: THYROID 30 MG TABLET PO SCH ×2 (08:47→09:00)
[2018-05-24] MEDS: POTASSIUM CHLORIDE 10 MEQ TABLET.SA PO SCH (08:47)
[2018-05-24] MEDS: PROSOURCE / PROSTAT (PYXIS) 30 ML UDC PO SCH ×3 (08:49→17:37)
[2018-05-24] MEDS ORDERED: IV D5W 1,000 ML IV PRN (09:00)
--- NOTE | 2018-05-24 09:00 | NUR ---
STOREHOUSE CLERK NOTES: PATIENT REFUSED SOLU-CORTEF, FERROUS SULFATE AND THYROID MEDICATION. EXPLAINED RISKS AND BENEFITS BUT STILL PT REFUSED.
[2018-05-24 12:00] VITALS: BP 133/67
[2018-05-24] MEDS: DEXTROSE 50%-WATER 50 ML DISP.SYRIN IVP PRN (12:48)
--- NOTE | 2018-05-24 12:50 | NUR ---
IGNITER ASSEMBLER NOTES: ACCU CHECK DONE 33MG/DL. DEXTROSE INJ 50% GIVEN. BEHAVIORAL HEALTH AIDE TRISTIN CONTE MADE AWARE AND NEW ORDER TO INCREASE IVF D5W TO 75ML/HR.
--- NOTE | 2018-05-24 13:00 | NUR ---
PROJECTION TECHNICIAN NOTES: PATIENT WAS UPSET AND REFUSED HER IVF D5W, STATED THAT SHE WANTS D10W, ALSO REFUSED HER SOLU-CORTEF. DISCOVERY MANAGER TRISTIN CONTE NOTIFIED.
--- NOTE | 2018-05-24 13:23 | NUR ---
PRODUCT CONTROLLER NOTES: BLOOD SUGAR RECHECKED, 158MG/DL. LEGAL ASSOCIATE TRISTIN CONTE MADE AWARE.
--- NOTE | 2018-05-24 15:45 | NUR ---
HAIR STYLIST NOTES: PATIENT ON BED ASLEEP. FAMILY AT BEDSIDE. STATED THAT SHE FEELS WEAK, ACCU CHECK DONE, 39MG/DL. [employer] PROTECTION SPECIALIST TRISTIN MARK MADE AWARE, ORDERED ONE TIME DOSE OF DEXTROSE INJ 50% AND STATED TO MONITOR BLOOD SUGAR. DENIES PAIN AT THIS TIME. NO SOB NOTED. WILL RECHECK BLOOD SUGAR AGAIN AND CONTINUE TO MONITOR PT.
[2018-05-24 16:00] VITALS: BP 130/62
[2018-05-24] MEDS ORDERED: DEXTROSE 50%-WATER 50 ML DISP.SYRIN IVP ONE (16:00)
--- NOTE | 2018-05-24 18:25 | NUR ---
RN PLASTICS NOTES: PT IN BED AWAKE AND VERBALLY RESPONSIVE. FAMILY STILL AT BEDSIDE. NO ACUTE DISTRESS NOTED. NO COMPLAINTS OF PAIN OR DISCOMFORT AT THIS TIME. ACCU CHECK DONE, 68MG/DL. DIET AIDE TRISTIN CONTE AWARE. ENCOURAGED TO INCREASE PO INTAKE. RADHA MIDLINE INTACT AND PATENT. KEPT CLEAN, DRY AND COMFORTABLE. SIDE RAILS UP X2. BED LOCKED AND IN LOWEST POSITION. CALL LIGHT PLACED WITHIN REACH. WILL ENDORSE TO WORSHIP DIRECTOR FOR SHANIA.
[2018-05-24 20:00] VITALS: BP 130/73
--- NOTE | 2018-05-24 20:00 | NUR ---
RN INITIAL NOTES: RECEIVED PT ASLEEP. NO ACUTE DISTRESS NOTED. NO COMPLAINTS OF PAIN OR DISCOMFORT. BREATHING EVEN AND UNLABORED WITH NORMAL RESPIRATIONS. ON TELE MONITOR, SINUS RHYTHM HR 95. RADHA MIDLINE INTACT AND PATENT, WITH IVF D10W RUNNING AT 70ML/HR, INFUSING WELL. KEPT CLEAN, DRY AND COMFORTABLE. SAFETY AND FALL PRECAUTIONS OBSERVED AND MAINTAINED. CALL LIGHT PLACED WITHIN REACH. WILL CONTINUE TO MONITOR PT.
[2018-05-24] MEDS ORDERED: Sodium Chloride 154 MEQ in IV 10% DEXTROSE 1,000 ML IV PRN ×2 (23:00→23:30)
[2018-05-24] MEDS ORDERED: DEXTROSE 10% IN WATER 250 ML BAG IV PRN (23:30)
[2018-05-25] VITALS: BP 129/61
[2018-05-25] MEDS: IV 10% DEXTROSE 1,000 ML IV PRN ×3 (01:12→20:24)
[2018-05-25] MEDS: BLOOD SUGAR DIAGNOSTIC 1 EACH STRIP IN SCH ×6 (01:12→20:24)
[2018-05-25 04:00] VITALS: BP 126/78
[2018-05-25] MEDS: DEXTROSE 50%-WATER 50 ML DISP.SYRIN IVP PRN (05:28)
--- NOTE | 2018-05-25 06:26 | NUR ---
RN INITIAL NOTES: NO ACUTE CHANGES NOTED DURING THIS SHIFT. PT BS RANGED BETWEEN 43-69 OVER SHIFT. IV FLUIDS CHANGED TO D10 @70 MLS/HR. REPORT GIVEN TO AM NURSE FOR SHANIA.
--- NOTE | 2018-05-25 06:31 | NUR ---
RN CLOSING NOTES: NO ACUTE CHANGES NOTED DURING THIS SHIFT. PT BS RANGED BETWEEN 43-69 OVER SHIFT. IV FLUIDS CHANGED TO D10 @70 MLS/HR. REPORT GIVEN TO AM NURSE FOR SAHNIA.
--- NOTE | 2018-05-25 07:58 | NUR ---
RN NOTE: PATIENT RECEIVED ALERT AWAKE ORIENTED X 4. DENIES PAIN & DISCOMFORT. IV SITE INTACT, RUNNING WITH IV FLUIDS ORDERED. SAFETY MEASURES OBSERVED. CALL LIGHT WITHIN REACH. WILL CONTINUE TO MONITOR.
[2018-05-25 08:00] VITALS: BP 131/73
[2018-05-25] MEDS: FOLIC ACID 1 MG TABLET PO SCH (08:26)
[2018-05-25] MEDS: POTASSIUM CHLORIDE 10 MEQ TABLET.SA PO SCH (08:26)
[2018-05-25] MEDS: HYDROCORTISONE SOD SUCCINATE 100 MG/2 ML VIAL IV SCH ×3 (08:27→17:27)
[2018-05-25] MEDS: ENSURE CLEAR 237 ML LIQUID (MIX BERRY) PO SCH ×4 (08:43→20:31)
[2018-05-25] MEDS: FERROUS SULFATE (325 MG) 325 MG/TAB TABLET PO SCH ×2 (08:43→17:00)
[2018-05-25] MEDS: THYROID 30 MG TABLET PO SCH (08:43)
[2018-05-25] MEDS: PROSOURCE / PROSTAT (PYXIS) 30 ML UDC PO SCH ×3 (08:43→17:00)
[2018-05-25 12:00] VITALS: BP 131/62
[2018-05-25 16:00] VITALS: BP 132/70
--- NOTE | 2018-05-25 18:49 | NUR ---
RN NOTE: PATIENT REMAINS ALERT AWAKE ORIENTED. DENIES PAIN & DISCOMFORT. VITAL SIGNS WNL. SAFETY MEASURES OBSERVED. NO FALL/INJURY NOTED. CONTINUE TO REFUSE BLOOD DRAW, EDUCATION PROVIDED. WILL TRY TO ATTEMPT LATER TONIGHT PER PT REQUEST. BLOOD SUGAR REMAINS WITHIN NORMAL LIMITS. CALL LIGHT WITHIN REACH. WILL ENDORSE TO PM SHIFT FOR CONTINUITY OF CARE.
[2018-05-25 20:00] VITALS: BP 137/77
[2018-05-26] VITALS (7 sets, daily range): BP systolic 120–147; BP diastolic 61–79
[2018-05-26] MEDS: BLOOD SUGAR DIAGNOSTIC 1 EACH STRIP IN SCH ×6 (02:00→21:13)
--- NOTE | 2018-05-26 06:32 | NUR ---
HIDE AND SKIN COLERER NOTE PT REMAINED STABLE DURING SHIFT. NO ACUTE DISTRESS NOTED. ALL NEEDS ATTENDED TO PROMPTLY. PT REFUSED BLOOD DRAW LAST NIGHT AND THIS MORNING. EXPLAINED RISKS AND BENEFITS AND PT STILL REFUSED. CALL LIGHT WITHIN REACH. WILL ENDORSE TO NEXT SHIFT FOR CONTINUITY OF CARE.
--- NOTE | 2018-05-26 07:00 | NUR ---
RN NOTE: RECEIVED PT ON BED, A/Ox3, ON RA , RESPIRATION EVEN AND UNLABORED, NO SOB NOTED, ON TELE SR , HR IN 80'S , L UPPER ARM MIDLINE SITE , CDI, SR UP x3, CALL LIGHT WITHIN EASY REACH, BED LOCKED AND IN LOWEST POSITION , SAFETY MEASURES OBSERVED. CALL LIGHT WITHIN EASY REACH. CONTINUE TO MONITOR .
[2018-05-26] MEDS: FOLIC ACID 1 MG TABLET PO SCH (08:32)
[2018-05-26] MEDS: HYDROCORTISONE SOD SUCCINATE 100 MG/2 ML VIAL IV SCH ×3 (08:32→16:27)
[2018-05-26] MEDS: POTASSIUM CHLORIDE 10 MEQ TABLET.SA PO SCH (08:32)
[2018-05-26] MEDS: FERROUS SULFATE (325 MG) 325 MG/TAB TABLET PO SCH ×2 (08:40→16:28)
[2018-05-26] MEDS: ENSURE CLEAR 237 ML LIQUID (MIX BERRY) PO SCH (08:40)
[2018-05-26] MEDS: PROSOURCE / PROSTAT (PYXIS) 30 ML UDC PO SCH ×3 (08:41→16:28)
[2018-05-26] MEDS: THYROID 30 MG TABLET PO SCH (08:42)
[2018-05-26] MEDS: IV 10% DEXTROSE 1,000 ML IV PRN (11:07)
--- NOTE | 2018-05-26 12:00 | NUR ---
RN NOTES VSS STABLE , PT AT REST CONTINUE TO MONITOR .
[2018-05-26] MEDS: IV D5W 1,000 ML IV PRN (13:25)
--- NOTE | 2018-05-26 18:37 | NUR ---
RN NOTES PT OUT BED TO BATH ROOM , STABLE , D5W AT 75CC/HR RUNNING VIA L UPPER ARM MIDLINE , CALL LIGHT WITHIN EASY REACH, WILL ENDORSE TO R&D ENGINEER NURSE FOR SHANIA .
--- NOTE | 2018-05-26 18:50 | NUR ---
RN NOTES PT STATED FEELS WEAK , BP 128/79. HR 107, T=98.6, ZQ=503, NO NEUROLOGICAL CHANGES NOTED, TRISTIN CONTE INSPECTOR RECEIVING NOTIFED, CONTINUE TO MONITOR .
[2018-05-26 20:24] LABS: CALCIUM, SERUM 8.9 mg/dL (8.5-10.1); CREATININE 0.9 mg/dL (0.6-1.3); POTASSIUM 2.9 mmol/L (3.5-5.1)
[2018-05-26 20:28] LABS: WHITE BLOOD COUNT (AUTO) 12.1 K/uL (4.3-11.0)
[2018-05-26 20:29] LABS: EOSINOPHILS % (AUTO) 0.1 % (0.0-6.0); HEMATOCRIT 28 % (33-45); HEMOGLOBIN 8.7 g/dL (11.5-14.8); LYMPHOCYTES % (AUTO) 4.3 % (20.0-44.0); MEAN CORPUSCULAR HEMOGLOBIN 26 PG (26.0-33.0); MEAN CORPUSCULAR HGB CONC 31 g/dl (31.0-36.0); MEAN CORPUSCULAR VOLUME 83 fL (82-100); MONOCYTES % (AUTO) 4.9 % (2.0-12.0); NEUTROPHILS % (AUTO) 90.7 % (43.0-81.0); PLATELET COUNT (AUTO) 296 /CMM (150-450); RDW COEFFICIENT OF VARIATION 20.6 (11.5-15.0); RED BLOOD CELL COUNT(AUTO) 3.31 MIL/uL (4.0-5.2)
[2018-05-26 20:30] LABS: LYMPHOCYTES # (AUTO) 0.5 /CMM (0.8-4.8); MONOCYTES # (AUTO) 0.6 /CMM (0.1-1.30); NEUTROPHILS # (AUTO) 11.1 /CMM (1.8-8.9)
[2018-05-27] VITALS: BP 135/66
[2018-05-27] MEDS: BLOOD SUGAR DIAGNOSTIC 1 EACH STRIP IN SCH ×6 (00:25→20:54)
[2018-05-27] MEDS: IV D5W 1,000 ML IV PRN (02:27)
[2018-05-27 04:00] VITALS: BP 132/63
[2018-05-27] MEDS: DEXTROSE 50%-WATER 50 ML DISP.SYRIN IVP PRN (04:34)
--- NOTE | 2018-05-27 05:46 | NUR ---
DIRECTOR OF HOTEL NOTE POTASSIUM 2.9. SPOKE WITH PIT STEWARD DR. CHOPRA WITH ORDERS FOR KDUR 40 MEQ PO X1 DOSE. ORDERS NOTED AND CARRIED OUT. WILL CONTINUE TO MONITOR.
[2018-05-27] MEDS ORDERED: POTASSIUM CHLORIDE 20 MEQ TAB.PRT.SR PO ONE (06:00)
--- NOTE | 2018-05-27 07:00 | NUR ---
RN NOTES RECEIVE PT ON BED, A/Ox4, ON RA , RESPIRATION EVEN AND UNLABORED , NO SOB NOTED, ON TELE SR, HR IN 90'S , D5W AT 70CC/HR RUNNING VIA L UPPER ARM MIDLINE , SITE CDI, SR UP x3, CALL LIGHT WITHIN EASY REACH, BED LOCKED AND IN LOWEST POSITION, CONTINUE TO MONITOR.
[2018-05-27 08:00] VITALS: BP 146/79
[2018-05-27] MEDS: PROSOURCE / PROSTAT (PYXIS) 30 ML UDC PO SCH ×3 (09:00→16:19)
[2018-05-27] MEDS: THYROID 30 MG TABLET PO SCH (09:00)
[2018-05-27] MEDS: FERROUS SULFATE (325 MG) 325 MG/TAB TABLET PO SCH ×2 (09:00→16:19)
[2018-05-27] MEDS: HYDROCORTISONE SOD SUCCINATE 100 MG/2 ML VIAL IV SCH ×3 (09:05→16:38)
[2018-05-27] MEDS: FOLIC ACID 1 MG TABLET PO SCH (09:05)
[2018-05-27] MEDS: POTASSIUM CHLORIDE 10 MEQ TABLET.SA PO SCH (09:05)
--- NOTE | 2018-05-27 09:14 | NUR ---
RN NOTES BG =46, DR CABRALES NOTIFIED , NEW ORDER RECEIVED, D50 IV x1 GIVEN , CONTINUE TO MONITOR
--- NOTE | 2018-05-27 09:44 | NUR ---
RN NOTES BG= 122 , CONTINUE TO MONITOR .
[2018-05-27] MEDS ORDERED: GLUCAGON,HUMAN RECOMBINANT 1 MG/VIAL VIAL IM ONE (10:00)
--- NOTE | 2018-05-27 10:00 | NUR ---
RN NOTES PT REFUSED MORNING LAB DRAWN TWICE THIS AM .
[2018-05-27] MEDS: Sodium Chloride 154 MEQ in IV 10% DEXTROSE 1,000 ML IV PRN ×2 (10:37→22:58)
[2018-05-27 12:00] VITALS: BP 141/74
[2018-05-27 15:44] LABS: CREATININE 0.8 mg/dL (0.6-1.3); POTASSIUM 3.1 mmol/L (3.5-5.1)
[2018-05-27 16:00] VITALS: BP 130/69
[2018-05-27 16:24] LABS: HEMATOCRIT 27 % (33-45); HEMOGLOBIN 8.6 g/dL (11.5-14.8); MEAN CORPUSCULAR HEMOGLOBIN 27 PG (26.0-33.0); MEAN CORPUSCULAR HGB CONC 32 g/dl (31.0-36.0); MEAN CORPUSCULAR VOLUME 83 fL (82-100); PLATELET COUNT (AUTO) 315 /CMM (150-450); RDW COEFFICIENT OF VARIATION 19.8 (11.5-15.0); RED BLOOD CELL COUNT(AUTO) 3.23 MIL/uL (4.0-5.2); WHITE BLOOD COUNT (AUTO) 10.6 K/uL (4.3-11.0)
[2018-05-27 16:25] LABS: EOSINOPHILS % (AUTO) 0.1 % (0.0-6.0); LYMPHOCYTES # (AUTO) 0.5 /CMM (0.8-4.8); LYMPHOCYTES % (AUTO) 4.7 % (20.0-44.0); MONOCYTES # (AUTO) 0.5 /CMM (0.1-1.30); MONOCYTES % (AUTO) 4.7 % (2.0-12.0); NEUTROPHILS # (AUTO) 9.6 /CMM (1.8-8.9); NEUTROPHILS % (AUTO) 90.5 % (43.0-81.0)
--- NOTE | 2018-05-27 18:45 | NUR ---
RN NOTES DR RODRIGES ON THE FLOOR SEEING THE PT , NOTIFIED REGARDING K=3.1, NOW ORDER RECEIVED . PT STABLE , D10NS AT 75CC/HR RUNNING VIA L UPPER ARM MIDLINE . SR UP X2, CALL LIGHT WITHIN EASY REACH, WILL ENDOSE TO ROTARY DRUM TANNER NURSE FOR SHANIA .
[2018-05-27] MEDS: POTASSIUM CHLORIDE 10 MEQ/50 ML PREMIXED IVPB FOR PERIPHERAL LINE IV SCH ×4 (19:50→22:58)
[2018-05-27 20:00] VITALS: BP 138/80
--- NOTE | 2018-05-27 20:00 | NUR ---
RN INITIAL NOTES RECEIVED THE PATIENT AWAKE ON BED, FAMILY AT BEDSIDE. PT IS A/O X3, ON ROOM AIR, NO S/S OF RESP DISTRESS, SATURATING WELL. CURRENTLY SR ON THE MONITOR, HR 100'S. ON DIAPERS ONLY. LEFT UPPER ARM MIDLINE WITH D10NS @ 75MLS/HR, FLUSHED AND PATENT, NO S/S OF INFILTRATION/INFECTION, DRESSING CDI. BED LOW AND LOCKED, SIDERAILS UP, CALL LIGHT WITHIN REACH. WILL MONITOR
[2018-05-28] VITALS: BP 156/85
[2018-05-28] MEDS: BLOOD SUGAR DIAGNOSTIC 1 EACH STRIP IN SCH ×6 (00:10→20:42)
[2018-05-28] MEDS: DEXTROSE 50%-WATER 50 ML DISP.SYRIN IVP PRN ×3 (00:10→17:48)
--- NOTE | 2018-05-28 00:10 | NUR ---
RN NOTES CURRENT BLOOD SUGAR IS 55. 1 AMP D10 GIVEN PER PROTOCOL. WILL RECHECK BLOOD SUGAR AFTER 30MIN
[2018-05-28 04:00] VITALS: BP 139/74
--- NOTE | 2018-05-28 06:30 | NUR ---
RN CLOSING NOTES PATIENT CURRENT BLOOD SUGAR IS 39, APPEARS TO BE ASYMPTOMATIC. 1 AMP D50 PROVIDED WELL 1 BOX OF ORANGE JUICE. WILL RECHECK IN A FEW MIN. NOTIFIED DR MCKENZIE OF CURRENT BLOOD SUGAR, NO NEW ORDERS. ALL OTHER MEDS GIVEN, AM CARE PROVIDED. WILL ENDORSE SHANIA TO AM RN
--- NOTE | 2018-05-28 07:50 | NUR ---
RN OPENING NOTES RECEIVED REPORT FROM NURSE LUCIANO. THE PATIENT AWAKE ON BED. PT IS A/O X3, ON ROOM AIR, NO S/S OF RESP DISTRESS, SATURATING WELL. CURRENTLY SR ON THE MONITOR, HR 95. LEFT UPPER ARM MIDLINE WITH D10NS @ 75MLS/HR, FLUSHED AND PATENT, NO S/S OF INFILTRATION/INFECTION, DRESSING CDI. BED LOW AND LOCKED, SIDE RAILS UP, CALL LIGHT WITHIN REACH. WILL CONTINUE MONITOR
[2018-05-28 08:00] VITALS: BP 143/78
[2018-05-28] MEDS: HYDROCORTISONE SOD SUCCINATE 100 MG/2 ML VIAL IV SCH ×3 (08:24→16:40)
[2018-05-28] MEDS: POTASSIUM CHLORIDE 10 MEQ TABLET.SA PO SCH (08:24)
[2018-05-28] MEDS: FOLIC ACID 1 MG TABLET PO SCH (08:24)
[2018-05-28] MEDS: PROSOURCE / PROSTAT (PYXIS) 30 ML UDC PO SCH ×3 (08:35→16:45)
[2018-05-28] MEDS: FERROUS SULFATE (325 MG) 325 MG/TAB TABLET PO SCH ×2 (08:36→16:45)
[2018-05-28] MEDS: THYROID 30 MG TABLET PO SCH (08:36)
--- NOTE | 2018-05-28 09:00 | NUR ---
RN NOTES NOTED WITH LOW BLOOD SUGAR.54.PATIENT IS AXOX4.SHE EAT THE BREAKFAST AND DRINK ORANGE JUICE.RECHECKED BACK TO 72.WILL CONTINUE TO MONITOR.
[2018-05-28 12:00] VITALS: BP 131/68
[2018-05-28] MEDS: Sodium Chloride 154 MEQ in IV 10% DEXTROSE 1,000 ML IV PRN (15:09)
[2018-05-28] MEDS ORDERED: OCTREOTIDE 50 MCG/ML AMPUL SQ ONE (15:30)
[2018-05-28 16:00] VITALS: BP 138/76
[2018-05-28] MEDS ORDERED: OCTREOTIDE 50 MCG in IV NS 0.9% 50 ML IV ONE (16:00)
--- NOTE | 2018-05-28 18:00 | NUR ---
RN NOTES SEEN BY DR.TIM CABRALES NOTIFIED ABOUT THE BLOOD SUGAR LEVEL.GOT NEW ORDERS.HAD AN EPISODE OF LOW BLOOD SUGAR OF 40.PATIENT IS AXOX3.NO SOB NO DISTRESS NOTED.D50 X1 GIVEN.DR.TIM CABRALES MADE AWARE.TOLD TO CONTINUE ON ENDOSTATIN AND GLUCAGON ORDERED.RECHECKED BLOOD SUGAR IS 147.WILL CONINUE TO MONITOR.
[2018-05-28] MEDS: OCTREOTIDE 1,250 MCG in IV NS 0.9% 247.5 ML IV PRN (18:34)
--- NOTE | 2018-05-28 19:00 | NUR ---
RN SHIFT END NOTES THE PATIENT AWAKE ON BED. PT IS A/O X4, ON ROOM AIR, NO S/S OF RESP DISTRESS, SATURATING WELL. CURRENTLY SR ON THE MONITOR, HR 90. LEFT UPPER ARM MIDLINE WITH D10NS @ 75MLS/HR, FLUSHED AND PATENT, NO S/S OF INFILTRATION/INFECTION, DRESSING CDI. BED LOW AND LOCKED, SIDE RAILS UP, CALL LIGHT WITHIN REACH. WILL ENDORSE TO PM NURSE FOR SHANIA.
--- NOTE | 2018-05-28 19:01 | NUR ---
RN NOTES SEEN BY EZIO RN TRAVELING FROM [facility].PATIENT SAID SHE WILL THINK ABOUT IT AND LET US KNOW LATER.HER FRIEND LOOKING FOR A PLACEMENT.
[2018-05-28 20:00] VITALS: BP 142/78
[2018-05-28] MEDS ORDERED: DIAZOXIDE PO SCH ×3 (20:00→21:00)
[2018-05-28] MEDS ORDERED: [UNRECOGNIZED DRUG - OTHER] PO SCH ×2 (20:00→21:00)
[2018-05-28] MEDS ORDERED: [UNRECOGNIZED DRUG - OTHER] PO SCH (21:00)
[2018-05-28] MEDS: [UNRECOGNIZED DRUG - OTHER] PO SCH (21:21)
[2018-05-28] MEDS: DIAZOXIDE PO SCH (21:21)
[2018-05-29] VITALS: BP 150/78
[2018-05-29] MEDS: BLOOD SUGAR DIAGNOSTIC 1 EACH STRIP IN SCH ×6 (01:00→21:10)
[2018-05-29] MEDS: DEXTROSE 50%-WATER 50 ML DISP.SYRIN IVP PRN ×2 (01:00→04:21)
[2018-05-29 04:00] VITALS: BP 138/68
[2018-05-29] MEDS: [UNRECOGNIZED DRUG - OTHER] PO SCH ×3 (04:16→21:05)
[2018-05-29] MEDS: DIAZOXIDE PO SCH ×3 (04:16→21:05)
[2018-05-29] MEDS: Sodium Chloride 154 MEQ in IV 10% DEXTROSE 1,000 ML IV PRN (05:39)
--- NOTE | 2018-05-29 07:15 | NUR ---
RN OPENING NOTES RECEIVED REPORT FROM PM NURSE. THE PATIENT AWAKE ON BED. PT IS A/O X4, ON ROOM AIR, NO S/S OF RESP DISTRESS, SATURATING WELL. CURRENTLY SR ON THE MONITOR, HR 92. LEFT UPPER ARM MIDLINE WITH D10NS @ 75MLS/HR, FLUSHED AND PATENT, NO S/S OF INFILTRATION/INFECTION, DRESSING CDI. BED LOW AND LOCKED, SIDE RAILS UP, CALL LIGHT WITHIN REACH. WILL CONTINUE MONITOR
--- NOTE | 2018-05-29 07:20 | NUR ---
CREPE MACHINE OPERATOR NOTES: RECEIVED PT ON BED ASLEEP WITH NO APPARENT DISTRESS NOTED. DENIES PAIN AT THIS TIME. NO SOB NOTED. ON TELE MONITOR, SINUS RHYTHM, HR 98. RADHA MIDLINE INTACT AND PATENT, WITH IVF D10 NS, INFUSING WELL. KEPT CLEAN, DRY AND COMFORTABLE. SAFETY AND FALL PRECAUTIONS OBSERVED AND MAINTAINED. CALL LIGHT WITHIN REACH. WILL CONTINUE TO MONITOR PT.
[2018-05-29 08:00] VITALS: BP 138/74
--- NOTE | 2018-05-29 08:00 | NUR ---
RN NOTES PATIENT REFUSED BREAKFAST.ASKING FOR FULL MEAL.GIVEN BREAKFAST MENU.SHE DONT WANT EAT ANY OF THIS AND REQUESTING FOR FULL MEAL.MADE AWARE THAT THIS IS THE FOOD WE HAVE IT AT [employer] NOW.OFFERED SANDWICHES BUT REFUSED IT.[facility] MADE AWARE.WILL HAVE SOME ONE FROM [employer] WILL COME AND TALK TO HER.
[2018-05-29] MEDS: HYDROCORTISONE SOD SUCCINATE 100 MG/2 ML VIAL IV SCH ×3 (08:50→16:44)
[2018-05-29] MEDS: POTASSIUM CHLORIDE 10 MEQ TABLET.SA PO SCH (08:50)
[2018-05-29] MEDS: GLUCAGON,HUMAN RECOMBINANT 1 MG/VIAL VIAL IM SCH (08:51)
[2018-05-29] MEDS: FERROUS SULFATE (325 MG) 325 MG/TAB TABLET PO SCH ×2 (08:51→16:44)
[2018-05-29] MEDS: FOLIC ACID 1 MG TABLET PO SCH (08:52)
[2018-05-29] MEDS: PROSOURCE / PROSTAT (PYXIS) 30 ML UDC PO SCH ×3 (08:52→16:44)
[2018-05-29] MEDS: THYROID 30 MG TABLET PO SCH (08:52)
--- NOTE | 2018-05-29 09:43 | NUR ---
RN NOTES PATIENT STARTS CRYING AND REFUSE TO TALK AEROSOL LINE OPERATOR ON PHONE.VITAL SIGNS STABLE.WITH O2 SAT OF 94% ON RA.LEFT M[facility]ES[facility]WARE TO HAVE AEROSOL LINE OPERATOR HAVE TALK TO HER IN ROOM.
--- NOTE | 2018-05-29 10:00 | NUR ---
RN NOTES MORNING MEDICATION FELL ON THE FLOOR FROM PATIENT HAND.REMOVED ANOTHER DOSE OF POTASSIUM AND FOLIC ACID FROM OMNICELL.
--- NOTE | 2018-05-29 10:45 | NUR ---
RN NOTES GOT NEW ORDERS FROM DR.TIM CABRALES .PATIENT REFUSED BLOOD DRAW.DR LUIZA JAMES.SHE OK TO EAT MAC AND CHEESE.GOT TRAY FROM [employer].ORDERED LUNCH AT 1300.WILL CONTINUE TO MONITOR.
--- NOTE | 2018-05-29 11:00 | NUR ---
RN NOTES GOT AN ORDER FOR PSYCH FOLLOW UP FOR BEHAVIOR..FAXED FACE SHEET TO [employer] .CONFIRMED THAT THEY RECEIVED IT.
[2018-05-29 12:00] VITALS: BP 115/60
[2018-05-29] MEDS: IV D5/0.45 NACL 1,000 ML IV PRN (13:40)
[2018-05-29 16:00] VITALS: BP 134/71
--- NOTE | 2018-05-29 17:42 | NUR ---
RN NOTES PATIENT,S MIDLINE IS OUT.STOP IVF.PASCUAL BETH MADE AWARE.SEEN THE PATIENT.REFUSED ANOTHER MIDLINE.TOLD THAT HE WILL DISCUSS WITH AND WILL TRY PERIPHERAL LINE.PATIENT AGREED WITH THAT.REMOVED MIDLINE.MINIMAL BLEEDING NOTED.APPLIED PRESSURE DRESSING.
--- NOTE | 2018-05-29 19:21 | NUR ---
MATERIAL REQUIREMENTS WORKER SHIFT END NOTES: PT ON BED NO DISTRESS NOTED. DENIES PAIN AT THIS TIME. NO SOB NOTED. ON TELE MONITOR, SINUS RHYTHM, HR 94. HEALTH INSURANCE AGENT PEDRO INSERTED LFA IV#20. INTACT AND PATENT, WITH IVF D5 1/2 NS @60CC/HR. INFUSING WELL. KEPT CLEAN, DRY AND COMFORTABLE. SAFETY AND FALL PRECAUTIONS MAINTAINED. CALL LIGHT WITHIN REACH. BED IS LOCKED AND IN LOW POSITION.FAMILY IS AT THE BEDSIDE.ENDORSED TO PM NURSE FOR SHANIA.
[2018-05-29 20:00] VITALS: BP_SYST 100; BP_SYST 134; BP_DIAS 42; BP_DIAS 84
--- NOTE | 2018-05-29 20:00 | NUR ---
DIGITAL TECHNICIAN NOTES RECEIVED PT ON BED. A/0X4. ON RA SATURATING WELL. ON TELE MONITOR SR HR 107. IV ACCESS ON RADHA MIDLINE D51/2 NS @60CC/HR AND LFA #20 SANDOSTATIN @10CC/HR PATENT, INTACT AND RUNNING WELL. HEAD OF BED ELEVATED. SIDE RAILS UP. CALL LIGHT WITHIN REACH. BED ALARM ON. WILL CONTINUE TO MONITOR PT CLOSELY. Addendum: 05/30/18 at 0018 by AUGUST CAT RN LFA [id number]
[2018-05-29] MEDS: OCTREOTIDE 1,250 MCG in IV NS 0.9% 247.5 ML IV PRN (21:08)
[2018-05-30] VITALS: BP 150/75
--- NOTE | 2018-05-30 00:18 | NUR ---
CHANNEL SPECIALIST NOTES BLOOD SUGAR 85MG/DL , OFFERED ORANGE JUICE PT REFUSED. WILL CONTINUE TO MONITOR.
[2018-05-30] MEDS: BLOOD SUGAR DIAGNOSTIC 1 EACH STRIP IN SCH ×6 (00:20→21:27)
[2018-05-30] MEDS: [UNRECOGNIZED DRUG - OTHER] PO SCH ×4 (01:42→21:00)
[2018-05-30] MEDS: DIAZOXIDE PO SCH ×4 (01:42→21:00)
--- NOTE | 2018-05-30 01:44 | NUR ---
PEOPLE GREETER NOTES DIAZOXIDE GIVEN 2100 05/29/18.
[2018-05-30 04:00] VITALS: BP 147/78
--- NOTE | 2018-05-30 06:56 | NUR ---
PAROLE BOARD MEMBER NOTES OFFERED ORANGE JUICE, PT REFUSED.
--- NOTE | 2018-05-30 06:57 | NUR ---
PACU NURSE NOTES NO ACUTE CHANGES NOTED DURING THE SHIFT. PROVIDED COMFORT AND SAFETY.NORMAL BLOOD SUGAR MAINTAINED THROUGHOUT THE SHIFT. DUE MEDS GIVEN. WILL ENDORSE TO THE AM NURSE FOR SHANIA
--- NOTE | 2018-05-30 07:42 | NUR ---
RN NOTE RECEIVED PATIENT IN BED AWAKE ALERT AND ORIENTED X3, SHE IS ABLE TO MAKE THINGS KNOWN AND VERBALIZE NEEDS. BREATHING EVEN AND UNLABORED WITH NO DISTRESS NOTED. PATIENT DENIES ANY PAIN AT THIS TIME. ON AGITATOR OPERATOR ST HR 111. LEFT FA IV SITE INTACT AND PATENT WITH ONGOING FLUIDS ORDERED. HEAD OF BED ELEVATED FOR COMFORT. BED LOW AND LOCKED POSITIONED. ALL SAFETY MEASURES DONE. PLACED CALL LIGHT WITHIN REACH. WILL CONTINUE TO MONITOR CLOSELY
--- NOTE | 2018-05-30 08:00 | NUR ---
RN NOTE PATIENT REFUSED BLOOD DRAW FROM CHAMFERING MACHINE OPERATOR. EXPLAINED RISK AND BENEFITS 3 TIMES STILL REFUSED. PATIENT REFUSED BLOOD PRESSURE TO BE TAKEN, SHE STATED "LET ME SLEEP". WILL CONTINUE TO RECHECK
[2018-05-30] MEDS: THYROID 30 MG TABLET PO SCH (09:00)
[2018-05-30] MEDS: FERROUS SULFATE (325 MG) 325 MG/TAB TABLET PO SCH ×2 (09:00→16:29)
[2018-05-30] MEDS: PROSOURCE / PROSTAT (PYXIS) 30 ML UDC PO SCH ×3 (09:00→16:10)
[2018-05-30] MEDS: IV D5/0.45 NACL 1,000 ML IV PRN (09:11)
[2018-05-30] MEDS: HYDROCORTISONE SOD SUCCINATE 100 MG/2 ML VIAL IV SCH ×2 (09:45→12:27)
[2018-05-30] MEDS: FOLIC ACID 1 MG TABLET PO SCH (09:56)
[2018-05-30] MEDS: POTASSIUM CHLORIDE 10 MEQ TABLET.SA PO SCH (09:57)
[2018-05-30] MEDS: GLUCAGON,HUMAN RECOMBINANT 1 MG/VIAL VIAL IM SCH (12:42)
[2018-05-30] MEDS: HYDROCORTISONE 20 MG TABLET PO SCH ×2 (14:22→16:46)
[2018-05-30 14:29] VITALS: BP 105/55
[2018-05-30] MEDS ORDERED: DIAZOXIDE 50 MG/ML PO ONE (15:37)
[2018-05-30 16:00] VITALS: BP 105/55
--- NOTE | 2018-05-30 19:00 | NUR ---
RN NOTE PATIENT REMAINED STABLE THROUGHOUT SHIFT. NO ACUTE CHANGES OR DISTRESS NOTED. PATIENT REFUSED CERTAIN MEDICATIONS EXPLAINED RISK AND BENEFITS AND STILL REFUSED. WILL ENDORSE TO NEXT SHIFT TO CONTINUE TO MONITOR CONTINUITY OF CARE.
--- NOTE | 2018-05-30 19:40 | NUR ---
CIRCULAR CLERK OPENING NOTE RECEIVED PATIENT IN BED AWAKE ALERT AND ORIENTED X 3, SHE IS ABLE TO MAKE THINGS KNOWN AND VERBALIZE NEEDS. BREATHING EVEN AND UNLABORED WITH NO DISTRESS NOTED. NO C/O PAIN AT THIS TIME. ON GRAIN ELEVATOR OPERATOR ST HR 90. LFA IV SITE INTACT AND PATENT, SL. BRP. BED LOW AND LOCKED POSITIONED. ALL SAFETY MEASURES DONE. PLACED CALL LIGHT WITHIN REACH. WILL CONTINUE TO MONITOR CLOSELY
[2018-05-30 20:00] VITALS: BP 112/63
[2018-05-30] MEDS ORDERED: DIAZOXIDE 50 MG/ML PO SCH (21:00)
--- NOTE | 2018-05-30 21:28 | NUR ---
MASS SPEC NOTE PT'S BS LEVEL IS 135MG/DL. OFFERED HER SNACK @ THIS TIME BUT PT REFUSED SAYING THAT SHE IS FINE @ THIS TIME & WILL TAKE IT LATER. WILL MONITOR CLOSELY.
--- NOTE | 2018-05-30 21:58 | NUR ---
DIAZOXIDE NOT AVAILABLE PT'S DIAZOXIDE MED NOT AVAILABLE @ THIS TIME, LOOKED IN THE MED ROOM EVERYWHERE, CALLED PHARMACY BUT STILL UNAVAILABLE, INFORMED CHARGE NURSE. GAVE ORANGE JUICE TO THE PT, WILL CONTINUE TO MONITOR CLOSELY FOR HYPOGLYCEMIA.
[2018-05-31] VITALS: BP_SYST 115; BP_SYST 79; BP_DIAS 42; BP_DIAS 70
[2018-05-31] MEDS: BLOOD SUGAR DIAGNOSTIC 1 EACH STRIP IN SCH ×6 (01:10→21:10)
[2018-05-31 04:00] VITALS: BP 115/70
[2018-05-31] MEDS: DIAZOXIDE PO SCH ×3 (05:00→21:35)
[2018-05-31] MEDS: [UNRECOGNIZED DRUG - OTHER] PO SCH ×3 (05:00→21:35)
--- NOTE | 2018-05-31 05:02 | NUR ---
teletypewriter installer note pt's blood sugar level is 108mg/dl. offered orange juice & snack but pt refused to eat or drink @ this time. will continue to monitor for any dori.
--- NOTE | 2018-05-31 05:32 | NUR ---
DIAZOXIDE NOT AVAILABLE PT'S DIAZOXIDE MED NOT AVAILABLE @ THIS TIME, PHARMACY & CHARGE NURSE IS AWARE. BS LEVEL IS 108MG/DL. NO S/S OF HYPOGLYCEMIA NOTED. WILL CONTINUE TO MONITOR CLOSELY FOR HYPOGLYCEMIA.
--- NOTE | 2018-05-31 05:35 | NUR ---
REFUSED LABS PT REFUSED TO HAVE BLOOD DRAW DONE @ THIS TIME & WANTED THE REPAIR ARMATURE WINDER HELPER TO COME AFTER BREAKFAST. REPAIR ARMATURE WINDER HELPER WOULD COME BACK TO DRAW BLOOD AFTER BREAKFAST. WILL ENDORSE TO AM TONY.
[2018-05-31] MEDS: ACETAMINOPHEN 325 MG TABLET PO PRN ×2 (06:52→20:38)
--- NOTE | 2018-05-31 06:53 | NUR ---
JUKE BOX SERVICER CLOSING NOTE PATIENT IN BED, SLEPT WELL @ NIGHT, ALERT AND ORIENTED X 3. BREATHING EVEN AND UNLABORED. NO C/O PAIN NOTED. ON SCREENER AND BLENDER OPERATOR ST HR 118. PT C/O FEELING COLD WHILE COVERED WITH EXTRA SHEETS & TACHYCARDIAC. BODY TEMP CHECKED, NOTED TO BE 100.8. REMOVED EXTRA BLANKETS, PRN TYLENOL GIVEN, REFUSED COLD PACK BY THE PT. ENCOURAGED PO FLUIDS BUT REFUSED. LEFT FA IV SITE INTACT AND PATENT, SL. HEAD OF BED ELEVATED FOR COMFORT. BED LOW AND LOCKED POSITIONED. ALL SAFETY MEASURES DONE. PLACED CALL LIGHT WITHIN REACH. WILL ENDORSE TO AM RN FOR CONTINUITY OF CARE & TO MONITOR CLOSELY FOR FEVER.
--- NOTE | 2018-05-31 07:34 | NUR ---
CLEANER TOUCH UP WORKER NOTE ENDORSED TO AM RN TO CLOSELY MONITOR THE PT ABOUT PT NOTED WITH FEVER & TYLENOL WAS GIVEN ORDERED.
[2018-05-31 08:00] VITALS: BP 106/42
--- NOTE | 2018-05-31 08:00 | NUR ---
UPPER LEATHER SORTER NOTES PT IN BED, AWAKE, ALERT, COOLING MEASURES PROVIDED, RESPIRATIONS NORMAL, CALL LIGHT WITHIN REACH, WITH AND EPISODE OF VOMITING EARLIER, PT REFUSED ZOFRAN, PT EDUCATION PROVIDED REGARDING INCREASING PO INTAKE, KEPT COMFORTABLE.
[2018-05-31] MEDS: HYDROCORTISONE 20 MG TABLET PO SCH ×2 (08:49→16:44)
[2018-05-31] MEDS: POTASSIUM CHLORIDE 10 MEQ TABLET.SA PO SCH (08:50)
[2018-05-31] MEDS: GLUCAGON,HUMAN RECOMBINANT 1 MG/VIAL VIAL IM SCH (08:55)
[2018-05-31] MEDS: FERROUS SULFATE (325 MG) 325 MG/TAB TABLET PO SCH ×2 (09:00→17:00)
[2018-05-31] MEDS: THYROID 30 MG TABLET PO SCH (09:00)
[2018-05-31] MEDS: PROSOURCE / PROSTAT (PYXIS) 30 ML UDC PO SCH ×3 (09:00→17:00)
[2018-05-31] MEDS: FOLIC ACID 1 MG TABLET PO SCH (09:05)
--- NOTE | 2018-05-31 11:43 | NUR ---
RAILROAD BRAKEMAN NOTES ASKED PT IF IT IS OK TO DRAW LAB WORKS AT THIS TIME, PT REFUSED, EXPLAINED IMPORTANCE BUT STILL REFUSED.
--- NOTE | 2018-05-31 13:30 | NUR ---
SPARMAKER NOTES PT ASLEEP, EASY TO AROUSE, CALM AT THIS TIME, BS CHECKED, NO S/S OF HYPOGLYCEMIA NOTED, KEPT COMFORTABLE IN BED, CALL LIGHT WITHIN REACH, ENCOURAGED INCREASED PO INTAKE.
[2018-05-31] MEDS ORDERED: GLUC1VIA IM (16:00)
[2018-05-31] MEDS ORDERED: DIAZ50OR PO (16:00)
[2018-05-31] MEDS ORDERED: Prosource PO (16:00)
[2018-05-31] MEDS ORDERED: FERR325T28 PO (16:00)
[2018-05-31] MEDS ORDERED: HYDR20TA3 PO (16:00)
[2018-05-31] MEDS ORDERED: FOLI1TAB16 PO (16:00)
[2018-05-31] MEDS ORDERED: IV NS 0.9% 1,000 ML BAG IV ONE (16:30)
[2018-05-31] MEDS ORDERED: IV NS 0.9% 1,000 ML IV ONE (16:30)
--- NOTE | 2018-05-31 18:42 | NUR ---
SANITATION OFFICER NOTES PT IN BED, ASLEEP, EASY TO AROUSE, ALERT AND ORIENTED, DENIES PAIN, AFEBRILE, NOT IN DISTRESS, IV FLUIDS INFUSING WELL, BP IMPROVED TO 116/59 BUT HR IS 146, PT AFEBRILE AT 98.9, DR. CABRALES INFORMED, AWAITING FOR FURTHER ORDERS, SEEN BY DR. RODRIGES, LAB WORKS ORDERED, PT INFORMED, AGREEABLE TO DO LAB WORKS AT THIS TIME, CALL LIGHT WITHIN REACH, ALL NEEDS ATTENDED.
[2018-05-31 18:46] VITALS: BP 116/59
[2018-05-31 20:00] VITALS: BP 97/35
--- NOTE | 2018-05-31 20:00 | NUR ---
CHUN RN NOTES PT IN BED, AWAKE, A/OX4,ST ON CHALK MACHINE OPERATOR, PT HAS FEVER 103.0, MEDICATION AND COOLING MEASURES PROVIDED, RESPIRATIONS NORMAL, SPO2 IS 93% RA, NC 2LO2 STARTED. LEFT FOREARM 20G IV LINE IS PATIENT, INTACT. PT REFUSED BLOOD DRAW, WILL TRY LATER. ALL SAFETY MEASURES ARE IMPLEMENTED, BED IN LOW, LOCKED POSITION, CALL LIGHT WITHIN REACH, PT EDUCATION PROVIDED REGARDING INCREASING PO INTAKE. WILL CONT. TO MONITOR.
[2018-05-31] MEDS: METOPROLOL TARTRATE 25 MG TABLET PO SCH (21:00)
[2018-06-01] VITALS (12 sets, daily range): BP systolic 79–127; BP diastolic 42–60
[2018-06-01 00:26] LABS: CALCIUM, SERUM 8.1 mg/dL (8.5-10.1); CREATININE 1.2 mg/dL (0.6-1.3); POTASSIUM 3.6 mmol/L (3.5-5.1)
[2018-06-01] MEDS: BLOOD SUGAR DIAGNOSTIC 1 EACH STRIP IN SCH ×5 (01:39→16:19)
[2018-06-01] MEDS: ACETAMINOPHEN 325 MG TABLET PO PRN (04:45)
[2018-06-01] MEDS: [UNRECOGNIZED DRUG - OTHER] PO SCH ×2 (05:15→12:52)
[2018-06-01] MEDS: DIAZOXIDE PO SCH ×2 (05:15→12:52)
--- NOTE | 2018-06-01 06:00 | NUR ---
CHUN RN NURSE PATIENT WAS VERY UNCOOPERATIVE, ANGRY AND VERY DISRESPECTFUL TO ME AND THE RECOVERY AUDITOR. SHE WAS ACTING WILD AND SHE THREW HER DIRTY DIAPER AT ME AND SAID THAT WE HAVE TO RESPECT HER. ME AND RECOVERY AUDITOR WAS BEING CALLED TO HER ROOM OZIEL 3-5 MINUTES TO ASSIST HER WITH GIVING HER WATER CAP ,FOR COVERING HER AND AFTER 10SEC. UNCOVERING HER AND FOR EVERY SMALL AND BIG THING.SHE WAS YELLING AT ME AND TELLING ME THAT I WAS THE ONE WHO WAS YELLING AT HER.
--- NOTE | 2018-06-01 06:00 | NUR ---
CHUN RN NOTES PT IN BED, A/OX4, NO COMPLAIN OF PAIN AT THIS TIME. ST 107 ON FIREMAN HELPER, T-99.4 WITH TYLENOL GIVEN EARLIER AND COOLING MEASURES ARE IMPLEMENTED. PT COMPLAINS OF GENERALIZED WEAKNESS. ALL SAFETY MEASURES ARE IMPLEMENTED, BED IN LOW, LOCKED POSITION, CALL LIGHT IN REACH. PT CARE WILL BE ENDORSE TO AM NURSE TO [facility].
[2018-06-01 06:46] LABS: APPEARANCE,URINE TURBID (CLEAR); BILIRUBIN,URINE 1+ (NEGATIVE); BLOOD, URINE NEGATIVE Ery/uL (NEGATIVE); COLOR,URINE DARK YELLO (YELLOW); KETONES,URINE NEGATIVE (NEGATIVE); LEUKOCYTE ESTERASE ,URINE NEGATIVE (NEGATIVE); NITRITE, URINE NEGATIVE (NEGATIVE); PROTEIN,URINE 2+ mg/dl (NEGATIVE); UGLUCOSE NEGATIVE (NEGATIVE)
[2018-06-01 07:00] LABS: BACTERIA,URINE Moderate /HPF (None Seen); RBC,URINE 0-2 /HPF (0-2)
[2018-06-01 07:01] LABS: SQUAMOUS EPITHELIAL CELL,UR Few /HPF (None Seen); URINE AMORPHOUS URATE Moderate /HPF (None Seen)
[2018-06-01] MEDS: POTASSIUM CHLORIDE 10 MEQ TABLET.SA PO SCH (08:32)
[2018-06-01] MEDS: FOLIC ACID 1 MG TABLET PO SCH (08:32)
[2018-06-01] MEDS: METOPROLOL TARTRATE 25 MG TABLET PO SCH (08:32)
[2018-06-01] MEDS: FERROUS SULFATE (325 MG) 325 MG/TAB TABLET PO SCH ×2 (08:32→16:32)
[2018-06-01] MEDS: THYROID 30 MG TABLET PO SCH (08:39)
[2018-06-01] MEDS: HYDROCORTISONE 20 MG TABLET PO SCH ×2 (08:39→16:32)
[2018-06-01] MEDS: DEXTROSE 50%-WATER 50 ML DISP.SYRIN IVP PRN (08:52)
[2018-06-01] MEDS: GLUCAGON,HUMAN RECOMBINANT 1 MG/VIAL VIAL IM SCH (08:52)
[2018-06-01] MEDS: PROSOURCE / PROSTAT (PYXIS) 30 ML UDC PO SCH ×3 (08:53→16:32)
--- NOTE | 2018-06-01 08:57 | NUR ---
Intervention for blood glucose 61 mg/dL. Recheck and 70mg/dL.
[2018-06-01] MEDS ORDERED: METOCLOPRAMIDE HCL 10 MG/2 ML VIAL IV ONE (12:00)
[2018-06-01] MEDS ORDERED: IV NS 0.9% 500 ML IV PRN ×2 (13:00→16:30)
--- NOTE | 2018-06-01 14:24 | NUR ---
Call to [facility] for transfer of patient. Cell Geneticist says she has to contact the admission coordinator to check on this patient. Discussed patient was a transfer for yesterday pending improved condition of blood pressure and pulse. She took customs entry writer phone number and says she will call back later.
[2018-06-01] MEDS ORDERED: IV NS 0.9% 500 ML IV ONE (16:00)
--- NOTE | 2018-06-01 16:19 | NUR ---
Gave nurse report to Luis, Income Tax Analyst at [facility] and ambulance EMT. Patient has no next of kin or person to notify listed on chart. Ambulance called a patient friend to let him know she was discharged to [facility]. Patient blood glucose and blood pressure and oxygen saturation verified at this time per ambulance crew request. Patient orders for discharge to [facility]. Patient held with this attempt due to blood pressure 90/52 per ambulance crew.
--- NOTE | 2018-06-01 16:35 | NUR ---
Per Freda with [facility] the patient is clear by the accepting physician at [facility] to come to the facility. Ambulance crew was already sent away at this time. Patient ride is on will call at this time. Notified by patient family, Ruben Infante, he wants to be on her list as the person to notify and has always been in the past at this facility. Will notify admission coordinator. Charge nurse is calling for ambulance again.
--- NOTE | 2018-06-01 17:56 | NUR ---
Discharge of the stable patient accompanied by ambulance emergency team to [facility]. Patient intravenous sites request to stay in place per accepting nurse in case as needed medicine needed. Changed patient diaper. Packed up inventoried and sent all patient belongings and discharge paperwork.
[2018-06-01] MEDS ORDERED: METOPROLOL TARTRATE 25 MG TABLET PO SCH (21:00)
== END 2018-06-01 17:49 | DRG 374 ==
LOC: ER 01:27 → TELE1 03:48
PROVIDERS: ADMIT Internal Medicine; ATTEND Internal Medicine
PROC: 05H633Z Insertion of Infusion Device into Left Subclavian Vein, Percutaneous Approach (ICD-10-PCS; principal; 2018-05-20)
PROC: B547ZZA Ultrasonography of Left Subclavian Vein, Guidance (ICD-10-PCS; 2018-05-20)
DX: C78.89 Secondary malignant neoplasm of other digestive organs (principal); E43 Unspecified severe protein-calorie malnutrition; G93.41 Metabolic encephalopathy; C18.9 Malignant neoplasm of colon, unspecified; K80.10 Calculus of gallbladder with chronic cholecystitis without obstruction; C78.02 Secondary malignant neoplasm of left lung; C78.01 Secondary malignant neoplasm of right lung; E27.40 Unspecified adrenocortical insufficiency; E16.2 Hypoglycemia, unspecified; C78.7 Secondary malignant neoplasm of liver and intrahepatic bile duct; E87.6 Hypokalemia; E78.5 Hyperlipidemia, unspecified; M79.7 Fibromyalgia; E03.9 Hypothyroidism, unspecified; R74.0 Nonspecific elevation of levels of transaminase and lactic acid dehydrogenase [LDH]; D63.8 Anemia in other chronic diseases classified elsewhere; R16.1 Splenomegaly, not elsewhere classified; Z68.24 Body mass index [BMI] 24.0-24.9, adult; R74.8 Abnormal levels of other serum enzymes; E88.09 Other disorders of plasma-protein metabolism, not elsewhere classified; F39 Unspecified mood [affective] disorder; R53.82 Chronic fatigue, unspecified; D52.9 Folate deficiency anemia, unspecified; D50.9 Iron deficiency anemia, unspecified; Z86.19 Personal history of other infectious and parasitic diseases; Z91.19 Patient's noncompliance with other medical treatment and regimen
CPT/HCPCS: 36415; 70450-TC; 71045-TC; 80048-TC; 80053-TC; 80061-TC; 80076-TC; 81000-TC; 82378; 82533; 82728-TC; 82746; 82962-TC; 83540-TC; 83735-TC; 84100-TC; 84132-TC; 84443-TC; 85025-TC; 85027-TC; 85610-TC; 87040-TC; 87081-TC; 87086-TC; A4216; A4606; J1610; J1720; J2354; J2405; J2765; J3475; J3480; J3490; J7030; J7040; J7050; J7060; J7070; Z7610

== ENCOUNTER 2018-06-02 23:12 | Emergency (ER) | payer MEDICARE, OTHER ==
[~2018-06-02] VITALS: Ht 162.6 cm; Wt 68.0 kg
[~2018-06-02 23:12] MED LIST changes: +DIAZ50OR PO; +FERR325T28 PO; +FOLI1TAB16 PO; +GLUC1VIA IM; +HYDR20TA3 PO; +Prosource PO
--- NOTE | 2018-06-02 23:31 | NUR ---
[facility] C/C LOW BLOOD SUGAR 45 AT 2030 AT FACILITY, JUICE GIVEN BY FACILITY WHICH PT VOMITTED BACK OUT. REPEAT BS 117 @0 BY FACILITY. UPON ARRIVAL, PT'S BS CHECKED PER MD BILLINGS, 83. PT IS AAOX4. SKIN WNL. NO S/S OF ACUTE DISTRESS NOTED. RESP EVEN AND UNLABORED. PT PLACED ON FEATHER TRIMMER AND POX. PT SAFETY AND COMFORT MEASURES IN PLACE. PT'S BEDSIDE. BEDSIDE FOR EVAL. WILL CONTINUE TO MONITOR PT.
[2018-06-02] MEDS ORDERED: IV D5W 1,000 ML IV ONE (23:43)
--- NOTE | 2018-06-03 01:55 | NUR ---
Patient is resting comfortably in bed with eyes closed. Easily aroused. VSS
[2018-06-03] MEDS ORDERED: IV NS 0.9% 1,000 ML BAG IV ONE (02:00)
--- NOTE | 2018-06-03 03:30 | NUR ---
PT CHANGED INTO NEW DIAPER AND BED SHEETS REPLACED WITH NEW SHEETS. PT RESTING IN BED WITH NO S/S OF DISTRESS NOTED. WILL CONTINUE TO MONITOR PT
--- NOTE | 2018-06-03 04:29 | NUR ---
Patient is resting comfortably in bed with eyes closed. Easily aroused. VSS
[2018-06-03 05:20] LABS: HEMATOCRIT 26 % (33-45); HEMOGLOBIN 8.2 g/dL (11.5-14.8); LYMPHOCYTES # (AUTO) 0.9 /CMM (0.8-4.8); LYMPHOCYTES % (AUTO) 7.3 % (20.0-44.0); MEAN CORPUSCULAR HEMOGLOBIN 26 PG (26.0-33.0); MEAN CORPUSCULAR HGB CONC 32 g/dl (31.0-36.0); MEAN CORPUSCULAR VOLUME 81 fL (82-100); MONOCYTES # (AUTO) 0.7 /CMM (0.1-1.30); MONOCYTES % (AUTO) 6.2 % (2.0-12.0); NEUTROPHILS # (AUTO) 10.4 /CMM (1.8-8.9); NEUTROPHILS % (AUTO) 86.5 % (43.0-81.0); PLATELET COUNT (AUTO) 237 /CMM (150-450); RDW COEFFICIENT OF VARIATION 22.2 (11.5-15.0); RED BLOOD CELL COUNT(AUTO) 3.19 MIL/uL (4.0-5.2); WHITE BLOOD COUNT (AUTO) 12.1 K/uL (4.3-11.0)
[2018-06-03 05:33] LABS: CALCIUM, SERUM 8.1 mg/dL (8.5-10.1); CARBON DIOXIDE 23 mmol/L (21-32); CHLORIDE 98 mmol/L (98-107); GLUCOSE 79 mg/dL (74-106); POTASSIUM 3.6 mmol/L (3.5-5.1); SODIUM SERUM 133 mmol/L (136-145); UREA NITROGEN, BLOOD 13 mg/dL (7-18)
[2018-06-03 05:38] LABS: ALANINE AMINOTRANSFERASE 38 U/L (12-78); ALBUMIN 1.6 g/dL (3.4-5.0); ALKALINE PHOSPHATASE 300 U/L (46-116); ASPARTATE AMINOTRANSFERASE 235 U/L (15-37); BILIRUBIN,DIRECT 1.6 mg/dL (0.0-0.2); TOTAL PROTEIN, SERUM 5.8 g/dL (6.4-8.2)
[2018-06-03 05:39] LABS: TROPONIN I < 0.017 ng/mL (0.00-0.056)
[2018-06-03 05:46] LABS: THYROID STIMULATING HORMONE 1.113 uIU/mL (0.358-3.74)
[2018-06-03 05:50] LABS: INR 1.54 (0.87-1.13)
--- NOTE | 2018-06-03 05:51 | NUR ---
Patient is resting comfortably in bed with eyes closed. Easily aroused. VSS
[2018-06-03 06:37] LABS: D-DIMER 7.3 mg/L(FEU (0.17-0.50)
--- NOTE | 2018-06-03 07:13 | NUR ---
REPORT GIVEN TO TONY COOPER FOR SHANIA.
[2018-06-03] MEDS ORDERED: IOHEXOL-350 100 ML VIAL IV ONE (07:15)
[2018-06-03] MEDS ORDERED: CT SWABBABLE VALVE TRANS SET 1 EA INFUS.SET MC ONE (07:15)
[2018-06-03] MEDS ORDERED: IV NS 0.9% 250 ML IV ONE (07:15)
--- NOTE | 2018-06-03 07:15 | NUR ---
Received patient to ed bed 13. Patient is resting comfortably in bed with eyes closed. Easily aroused.
--- NOTE | 2018-06-03 10:00 | NUR ---
PT CHANGED TO A NEW DIAPER NOW. KEPT COMFORTABLE.
--- NOTE | 2018-06-03 11:06 | NUR ---
REPORT GIVEN TO [facility] NUMBER [id number]
--- NOTE | 2018-06-03 11:10 | NUR ---
IV D5W 1L END TIME-1110
--- NOTE | 2018-06-03 11:17 | NUR ---
PT DISCHRAGED BACK TO [facility]. PT DISCHARGED W/ IV HEPLOCK REQUESTED BY PATIENT, ER MD AGREED W/ IT. PT LEFT IN STABLE CONDITION
[2018-06-03 11:20] VITALS: BP 119/70
== END 2018-06-03 11:20 | disposition home or self-care (01) ==
LOC: ER 23:14
DX: C18.9 Malignant neoplasm of colon, unspecified (principal); C78.7 Secondary malignant neoplasm of liver and intrahepatic bile duct; C78.00 Secondary malignant neoplasm of unspecified lung; E16.2 Hypoglycemia, unspecified; R00.0 Tachycardia, unspecified; R94.31 Abnormal electrocardiogram [ECG] [EKG]; F10.10 Alcohol abuse, uncomplicated; Y90.9 Presence of alcohol in blood, level not specified; Z88.1 Allergy status to other antibiotic agents; Z88.6 Allergy status to analgesic agent; Z60.2 Problems related to living alone
CPT/HCPCS: 36415; 80048-TC; 80076-TC; 82962-TC; 84439-TC; 84443-TC; 84484-TC; 85025-TC; 85378-TC; 85730-TC; A4606; J7030; J7050; J7060; J7070; Q9967; Z7610

== ENCOUNTER 2018-06-06 12:06 | Inpatient (IN) | payer MEDICARE, OTHER ==
[~2018-06-06] VITALS: Ht 162.6 cm; Wt 92.1 kg
--- NOTE | 2018-06-06 12:10 | NUR ---
AAOX3, came to ER c/o generalized weakness x 10 days. RR is even and unlabored with NAD noted. skin is warm and dry. Placed on the monitor. Awaiting md for eval.
--- NOTE | 2018-06-06 12:32 | NUR ---
DR CROWE ON THE PHONE WITH ONCMARCIAT DR Jaimie RODRIGES
--- NOTE | 2018-06-06 12:45 | NUR ---
US TECH AT BS.
[2018-06-06] MEDS ORDERED: IV NS 0.9% 500 ML BAG IV ONE (13:00)
--- NOTE | 2018-06-06 13:30 | NUR ---
ASKED PERMISSION TO PUT A PIV, REFUSED,DR CROWE INFORMED
--- NOTE | 2018-06-06 13:30 | NUR ---
PT REFUSED 3 TIMES FOR IV INSERTION AND BLOOD DRAW. AWARE.
--- NOTE | 2018-06-06 13:49 | NUR ---
PATIENT TELE 109, ADMITTING AGRICULTURAL SERVICE WORKER SHIMON
[2018-06-06 14:03] LABS: MEAN CORPUSCULAR HEMOGLOBIN 26 PG (26.0-33.0)
[2018-06-06 14:05] LABS: HEMATOCRIT 28 % (33-45); HEMOGLOBIN 9.1 g/dL (11.5-14.8); MEAN CORPUSCULAR HGB CONC 33 g/dl (31.0-36.0); MEAN CORPUSCULAR VOLUME 79 fL (82-100); PLATELET COUNT (AUTO) 306 /CMM (150-450); RDW COEFFICIENT OF VARIATION 20.9 (11.5-15.0); RED BLOOD CELL COUNT(AUTO) 3.48 MIL/uL (4.0-5.2); WHITE BLOOD COUNT (AUTO) 18.4 K/uL (4.3-11.0)
[2018-06-06 14:11] LABS: CALCIUM, SERUM 8.9 mg/dL (8.5-10.1); CARBON DIOXIDE 21 mmol/L (21-32); CHLORIDE 99 mmol/L (98-107); CREATININE 0.7 mg/dL (0.6-1.3); GLUCOSE 60 mg/dL (74-106); POTASSIUM 4.5 mmol/L (3.5-5.1); SODIUM SERUM 133 mmol/L (136-145); UREA NITROGEN, BLOOD 11 mg/dL (7-18)
[2018-06-06 14:15] LABS: INR 1.32 (0.85-1.15)
[2018-06-06 14:17] LABS: ALANINE AMINOTRANSFERASE 33 U/L (12-78); ALBUMIN 1.5 g/dL (3.4-5.0); ALKALINE PHOSPHATASE 436 U/L (46-116); ASPARTATE AMINOTRANSFERASE 102 U/L (15-37); BILIRUBIN,DIRECT 2.9 mg/dL (0.0-0.2); BILIRUBIN,TOTAL 3.4 mg/dL (0.2-1.0); TOTAL PROTEIN, SERUM 6.3 g/dL (6.4-8.2)
[2018-06-06 14:19] LABS: TROPONIN I < 0.017 ng/mL (0.00-0.056)
--- NOTE | 2018-06-06 14:21 | NUR ---
REPORT GIBVERN Addendum: 06/06/[address] REPORT GIVEN TO MAT SCOTT 109. Addendum: 06/06/[address] REPORT GIVEN TO MAT JIMENEZ FOR TELE.
[2018-06-06 16:00] VITALS: BP 144/82
--- NOTE | 2018-06-06 16:01 | NUR ---
RN NOTE: AT 1430 PATIENT RECEIVED FROM ER ALERT AWAKE ORIENTED X3, ON ROOM AIR, NO BREATHING DIFFICULTY NOTED. DENIES CHEST DISCOMFORT. C/O BACK PAIN, DISCOMFORT OF LEFT ARM, SWELLING +3 & BILATERAL LOWER LEGS 02 PITTING EDEMA. SKIN INTACT, REFUSED TO TAKE PICTURE AT THIS TIME. NO REDNESS NOTED ON SACROCOCCYX AREA. SAFETY MEASURES OBSERVED. ROOM ORIENTATION PROVIDED. ENCOURAGE TO USE CALL LIGHT FOR ASSISTANCE. WILL CONTINUE TO MONITOR. DR. MIGUEL MADE AWARE ABOUT NEW ADMISSION & WAITING FOR ADMISSION ORDERS, SAID ADMITTING MD IS DR. GABRIEL. CALLED & SPOKE WITH DR. GABRIEL, SAID HE IS NOT DESIGN ENGINEER AGRICULTURAL EQUIPMENT NOW. CHARGE NURSE MADE AWARE. WILL FOLLOW UP WITH ADMITTING MD.
[2018-06-06] MEDS ORDERED: IV NS 0.9% 1,000 ML IV PRN (16:02)
[2018-06-06] MEDS ORDERED: INSULIN REGULAR, HUMAN 100 UNIT/ML 3 ML VIAL SQ PRN (16:30)
[2018-06-06] MEDS ORDERED: *INSULIN REGULAR(HUMULIN R)HUM 100 UNIT/ML VIAL SQ PRN (16:30)
[2018-06-06] MEDS ORDERED: ZOLPIDEM TARTRATE 5 MG TABLET PO PRN (16:30)
[2018-06-06] MEDS ORDERED: MAGNESIUM HYDROXIDE 30 ML UDC PO PRN (16:30)
[2018-06-06] MEDS ORDERED: MAG HYDROX/AL HYDROX/SIMETH 30 ML UDC PO PRN (16:30)
[2018-06-06] MEDS ORDERED: Z GUARD REMEDY 2 OZ OINT TP PRN (16:30)
[2018-06-06] MEDS ORDERED: ONDANSETRON HCL/PF 4 MG/2 ML VIAL IVP PRN (16:30)
--- NOTE | 2018-06-06 16:51 | NUR ---
RN NOTE: IN ER BS WAS 71, PATIENT IS REQUESTING FOR FOOD. DR. HEATHER MIGUEL MADE AWARE ABOUT LOW BLOOD SUGAR & DIET ORDERS. OR IF NS IV FLUIDS WANTS TO CHANGE TO DEXTROSE IV PER PATIENT REQUEST. DR. MIGUEL REPLIED WILL ORDER.
[2018-06-06] MEDS ORDERED: DIAZOXIDE PO SCH (17:00)
[2018-06-06] MEDS: PROSOURCE / PROSTAT (PYXIS) 30 ML UDC PO SCH (17:00)
[2018-06-06 17:05] LABS: BAND % (MANUAL) 2 % (0.0-5.0); LYMPHOCYTES % (MANUAL) 4 % (16-48); MONOCYTES % (MANUAL) 10 % (0-11.0); NEUTROPHILS % (MANUAL) 84 (42-76)
[2018-06-06] MEDS: DEXTROSE 50%-WATER 50 ML DISP.SYRIN IV PRN (17:47)
--- NOTE | 2018-06-06 18:21 | NUR ---
RN NOTE: NOTED CRITICAL LOW BLOOD SUGAR 49 & REPEATED 51, DEXTROSE IV GIVEN, REPEATED 15 MINTS BS LEVEL IS 161. CALLED TO DR. MIGUEL FOR UPDATES, WAITING FOR CALL BACK.
[2018-06-06] MEDS: BLOOD SUGAR DIAGNOSTIC 1 EACH STRIP IN SCH ×2 (18:51→22:10)
[2018-06-06] MEDS: HYDROCORTISONE 20 MG TABLET PO SCH (18:52)
--- NOTE | 2018-06-06 19:30 | NUR ---
TELE/ RN NOTES: RECEIVED PT. IN BED W/ HOB ELEVATED. W/ FRIEND BY BEDSIDE. ON TELE MONITOR W/ ST. A/O X 4. ABLE TO MAKE NEEDS KNOWN. DENIES ANY C/O CHEST PAIN OR SOB AT PRESENT. W/ RH G 20 PATENT AND INTACT W/ NO S/S OF INFECTION/INFILTRATION NOTED. BEDS LOCKED AND IN LOW POSITION . W/ D5NS @ 75CC/HR. INCONTINENT CARE RENDERED. CALL LIGHT W/REACH. WILL CONTINUE TO MONITOR.
[2018-06-06 20:00] VITALS: BP 133/77
[2018-06-06] MEDS: [UNRECOGNIZED DRUG - OTHER] PO SCH (22:10)
[2018-06-06] MEDS: DIAZOXIDE PO SCH (22:10)
[2018-06-06] MEDS: IV D5/ 0.9% NACL 1,000 ML IV PRN (23:23)
[2018-06-06] MEDS: RIVAROXABAN 15 MG TABLET PO SCH (23:23)
[2018-06-07] VITALS: BP 124/79
[2018-06-07] MEDS: ACETAMINOPHEN 325 MG TABLET PO PRN ×2 (00:34→21:01)
[2018-06-07 04:00] VITALS: BP 116/75
[2018-06-07] MEDS: DIAZOXIDE PO SCH ×3 (05:27→21:01)
[2018-06-07] MEDS: [UNRECOGNIZED DRUG - OTHER] PO SCH ×3 (05:27→21:01)
--- NOTE | 2018-06-07 07:56 | NUR ---
PALEOBOTANIST NOTES: REPORT GIVEN TO AM NURSE FOR SHANIA.
[2018-06-07 08:00] VITALS: BP 133/61
[2018-06-07] MEDS: BLOOD SUGAR DIAGNOSTIC 1 EACH STRIP IN SCH ×4 (08:33→21:05)
[2018-06-07] MEDS: HYDROCORTISONE 20 MG TABLET PO SCH ×2 (08:34→17:14)
[2018-06-07] MEDS: FOLIC ACID 1 MG TABLET PO SCH (08:34)
[2018-06-07] MEDS: POTASSIUM CHLORIDE 10 MEQ TABLET.SA PO SCH (08:34)
[2018-06-07] MEDS: RIVAROXABAN 15 MG TABLET PO SCH ×2 (08:36→17:20)
[2018-06-07] MEDS: PROSOURCE / PROSTAT (PYXIS) 30 ML UDC PO SCH ×3 (08:40→17:00)
[2018-06-07] MEDS: GLUCAGON,HUMAN RECOMBINANT 1 MG/VIAL VIAL IM SCH (08:44)
--- NOTE | 2018-06-07 09:30 | NUR ---
AM RN NOTE Pt awake, A/O X4 verbally responsive. No acute distress noted. BS 70MG/DL and glucagon and routine meds given as ordered. IV site intact and patent. Will continue to monitor. Call light with in reach.
[2018-06-07 12:00] VITALS: BP 138/47
[2018-06-07] MEDS: IV D5/ 0.9% NACL 1,000 ML IV PRN (15:09)
[2018-06-07 16:00] VITALS: BP 123/56
--- NOTE | 2018-06-07 18:16 | NUR ---
AM RN NOTE Patient resting in her bed, brother at bedside. IV site intact and patent. Will continue to monitor.
--- NOTE | 2018-06-07 19:30 | NUR ---
TELE/ RN NOTES: RECEIVED PT. IN BED W/ HOB ELEVATED. W/ FRIEND BY BEDSIDE. ON TELE MONITOR W/ ST @ 121.A/O X 4. ABLE TO MAKE NEEDS KNOWN. DENIES ANY C/O CHEST PAIN OR SOB AT PRESENT. W/ RH G 20 PATENT AND INTACT W/ NO S/S OF INFECTION/INFILTRATION NOTED. BEDS LOCKED AND IN LOW POSITION . W/ D5NS @ 75CC/HR. INCONTINENT CARE RENDERED. CALL LIGHT W/REACH. WILL CONTINUE TO MONITOR.
[2018-06-07 20:00] VITALS: BP 133/67
[2018-06-08] VITALS: BP 103/54
[2018-06-08 03:11] LABS: HEMATOCRIT 24 % (33-45); HEMOGLOBIN 7.5 g/dL (11.5-14.8); MEAN CORPUSCULAR HEMOGLOBIN 26 PG (26.0-33.0); MEAN CORPUSCULAR HGB CONC 32 g/dl (31.0-36.0); MEAN CORPUSCULAR VOLUME 81 fL (82-100); PLATELET COUNT (AUTO) 254 /CMM (150-450); RED BLOOD CELL COUNT(AUTO) 2.92 MIL/uL (4.0-5.2); WHITE BLOOD COUNT (AUTO) 18.5 K/uL (4.3-11.0)
[2018-06-08] MEDS ORDERED: MEROPENEM 500 MG VIAL IV ONE (03:11)
[2018-06-08 03:16] LABS: CALCIUM, SERUM 8.4 mg/dL (8.5-10.1); CREATININE 0.7 mg/dL (0.6-1.3); POTASSIUM 4.1 mmol/L (3.5-5.1)
[2018-06-08 04:00] VITALS: BP 129/68
[2018-06-08 04:07] LABS: BAND % (MANUAL) 7 % (0.0-5.0); NEUTROPHILS % (MANUAL) 74 (42-76)
[2018-06-08 04:08] LABS: LYMPHOCYTES % (MANUAL) 9 % (16-48); METAMYELOCYTES % 3 % (0-0); MONOCYTES % (MANUAL) 3 % (0-11.0); MYELOCYTES % 4 % (0-0)
[2018-06-08] MEDS ORDERED: MEROPENEM 500 MG in IV NS 0.9% 50 ML IV SCH (05:00)
[2018-06-08] MEDS: DIAZOXIDE PO SCH ×3 (05:00→21:00)
[2018-06-08] MEDS: [UNRECOGNIZED DRUG - OTHER] PO SCH ×3 (05:00→21:00)
[2018-06-08] MEDS: IV D5/ 0.9% NACL 1,000 ML IV PRN (07:22)
--- NOTE | 2018-06-08 07:26 | NUR ---
TELE/RN NOTES: REPORT GIVEN TO AM NURSE FOR SHANIA.
[2018-06-08] MEDS: BLOOD SUGAR DIAGNOSTIC 1 EACH STRIP IN SCH ×4 (07:30→21:36)
--- NOTE | 2018-06-08 07:45 | NUR ---
Received pt in bed upset screaming and yelling, refuses care from staff assigned to her, pt claim that has allergies and does not want anybody with perfumes, body lotion nor lotion tried to explained to her that we do not use perfumes but we use body wash, deodorant and lotion, refused also V/S, CN aware about pt's behavior screaming to staff and refuses care, will f/u with .
[2018-06-08 08:00] VITALS: BP 142/72
[2018-06-08] MEDS ORDERED: GLUCERNA SHAKE 237 ML CAN PO SCH ×2 (08:30→12:00)
[2018-06-08] MEDS: FOLIC ACID 1 MG TABLET PO SCH (09:02)
[2018-06-08] MEDS: POTASSIUM CHLORIDE 10 MEQ TABLET.SA PO SCH (09:02)
[2018-06-08] MEDS: RIVAROXABAN 15 MG TABLET PO SCH ×2 (09:03→17:49)
[2018-06-08] MEDS: HYDROCORTISONE 20 MG TABLET PO SCH ×2 (09:08→17:49)
[2018-06-08] MEDS: GLUCAGON,HUMAN RECOMBINANT 1 MG/VIAL VIAL IM SCH (09:09)
[2018-06-08] MEDS ORDERED: LORAZEPAM INJ 2 MG/ML VIAL IV PRN (09:30)
[2018-06-08] MEDS ORDERED: FEE PK DOSING 1 MIN EA MC ONE (09:41)
--- NOTE | 2018-06-08 09:45 | NUR ---
Dr Gutierrez was called regarding pt's behavior screaming, yelling refuses care, orders received.
--- NOTE | 2018-06-08 10:15 | NUR ---
i, NICK HAINES, ATTEMPTED TWICE TO TAKE THE PT FOR CT OF ABD AND PELVIS.SHE REFUSED BOTH TIMES. NURSE TOLD ME SHE WILL CONTACT THE DOCTOR AND WILL LET ME KNOW.
--- NOTE | 2018-06-08 10:30 | NUR ---
Pt's call earlier and now he is in unit was explained to him about pt's behavior, and stated that pt is allergic to ativan so we can not give to pt, aware and meds was dc, will continue monitoring behavior.
[2018-06-08] MEDS: PROSOURCE / PROSTAT (PYXIS) 30 ML UDC PO SCH ×4 (11:24→17:49)
[2018-06-08] MEDS: VANCOMYCIN 1 GM in IV NS 0.9% 250 ML IV SCH ×2 (11:24→22:38)
--- NOTE | 2018-06-08 11:50 | NUR ---
LOAN SERVICE OFFICER NOTES DR. LAMONT ROBINS NOTIFIED ABOUT PATIENT REFUSING TO HAVE HER INFILTRATED IV TAKEN OUT DESPITE EXPLANATIONS. ALSO REFUSE TO HAVE FURTHER IV INSERTION. ALSO NOTIFIED BY PRIMARY NURSE NORRIS. RN
--- NOTE | 2018-06-08 11:50 | NUR ---
Pt's iv infiltrated, refused for us to take it out till her friend come to visit her, was explained to her that we need to dc iv and restart another one, pt ok for iv to be dc but refused for iv to started, Dr Gutierrez notifniall about pt refusing care since pt has multiples atb/iv and no iv acces, also pt's was call and also made him aware about pt's behavior and was asked if someone can come and be with pt since pt most of time angry with staff and accusing staff of being care less and not doing their job.
[2018-06-08 12:00] VITALS: BP 119/59
[2018-06-08] MEDS: ENSURE ENLIVE 237 ML LIQUID (VANILLA) PO SCH ×2 (12:00→17:00)
--- NOTE | 2018-06-08 12:25 | NUR ---
Pt has orders for ativan for anxiety since pt is anxious, screaming and yelling, refusing care, Pt's said that is allergic to ativan so med was DC, Psychiatric in unit to see her but also refuses to see MD, pt's behavior has been on and off all morning and is difficult to care of pt that does not want care, MD aware.
[2018-06-08] MEDS: MEROPENEM 1 G in IV NS 0.9% 100 ML IV SCH ×2 (13:00→21:38)
[2018-06-08] MEDS: METOPROLOL TARTRATE 25 MG TABLET PO SCH ×2 (13:41→20:57)
--- NOTE | 2018-06-08 15:30 | NUR ---
PT WENT TO HAVE CT OF ABDOMEN AND PELVIS, FOR CONSENT FOR PICC LINE AND HIDA TEST PRESENTED TO THEM , PT'S ADVICE PT NOT TO SIGNED CONSENT FOR HIDA D/T NOBODY HAS EXPLAINED TO THEM THE PROCEDURE, STAFF FROM RADIOLOGY IN UNIT AND EXPLAINED TO THEM AND NOW CONSENT FOR HIDA AND PICC LINE IN IN CHART.
--- NOTE | 2018-06-08 16:00 | NUR ---
Pt refused vital to taken refused care, refused for us to change soil sheets in her bed also for diaper change. Addendum: 06/08/18 at 1756 by LIZBETH GOLDSMITH RN Amended: Links added.
--- NOTE | 2018-06-08 16:00 | NUR ---
Pt refused v/s Addendum: 06/08/18 at 1757 by LIZBETH GOLDSMITH RN Amended: Links added.
--- NOTE | 2018-06-08 18:00 | NUR ---
PT IN BED AWAKE, ALERT, ORIENTED X4 VERBALLY RESPONSIVE, REFUSED SOME MEDS, ENSURE, WILL CHANGE ORDERS OF ENSURE, REPUSED TO WEAR TELE BOX, MDS AWARE AF PT'S BEHAVIOR.
[2018-06-08] MEDS: ENSURE ENLIVE CHOC 237 ML CAN PO SCH (18:30)
[2018-06-08 20:00] VITALS: BP 128/72
--- NOTE | 2018-06-08 20:00 | NUR ---
RN NOTES PATIENT REFUSED TELE MONITOR. EXPLAINED RISKS AND BENEFITS AND STILL REFUSED.
--- NOTE | 2018-06-08 21:00 | NUR ---
RN NOTES CHIP PICC LINE NURSE INSERTED PICC LINE ON PATIENT'S RIGHT UPPER ARM. XRAY DONE TO VERIFY PLACEMENT. FLUSHES EASY WITH GOOD BLOOD RETURN. ENSURE REFUSED BY PATIENT. OFFERED 3 TIMES EXPLAINED RISKS AND BENEFITS. PATIENT VERBALIZED IT GIVES HER GAS. DIAZOXIDE MEDICATION UNAVAILABLE AT THIS TIME. WILL FOLLOW UP WITH PHARMACY
--- NOTE | 2018-06-09 | NUR ---
RN NOTES PATIENT REFUSED MIDNIGHT VITAL SIGNS AND TELE MONITOR. EXPLAINED RISKS AND BENEFITS AND OFFERED 3 X AND STILL REFUSED
[2018-06-09 04:00] VITALS: BP 110/54
[2018-06-09] MEDS: [UNRECOGNIZED DRUG - OTHER] PO SCH ×3 (04:50→22:17)
[2018-06-09] MEDS: DIAZOXIDE PO SCH ×3 (04:50→22:17)
[2018-06-09] MEDS: MEROPENEM 1 G in IV NS 0.9% 100 ML IV SCH ×3 (04:53→20:28)
[2018-06-09 06:34] VITALS: BP 110/54
[2018-06-09 06:37] LABS: CREATININE 0.7 mg/dL (0.6-1.3); POTASSIUM 4.4 mmol/L (3.5-5.1)
--- NOTE | 2018-06-09 07:45 | NUR ---
ROLLER LEVELER OPERATOR NOTE: RECEIVED PATIENT IN BED, AWAKE, ALERT AND ABLE TO COMMUNICATE HER NEEDS. RESPIRATION IS EVEN AND UNLABORED SATURATING 96% IN ROOM AIR. DENIED ANY PAIN AT THIS TIME. HOB ELEVATED @ 30 DEGREES PER PATIENT'S PREFERENCE. (R) UA PICC LINE DOUBLE LUMEN WAS INFUSING WITH D5NS @75ML/HR. BED ALARMED AND LOCKED AT ALL TIMES. CALL LIGHT WITHIN REACH. NEEDS ANTICIPATED.
[2018-06-09 08:00] VITALS: BP 128/69
[2018-06-09] MEDS: ENSURE ENLIVE 237 ML LIQUID (VANILLA) PO SCH ×3 (08:00→18:00)
[2018-06-09] MEDS: ENSURE ENLIVE CHOC 237 ML CAN PO SCH ×3 (08:00→18:00)
[2018-06-09] MEDS: BLOOD SUGAR DIAGNOSTIC 1 EACH STRIP IN SCH ×4 (08:28→22:30)
[2018-06-09] MEDS: POTASSIUM CHLORIDE 10 MEQ TABLET.SA PO SCH (09:45)
[2018-06-09] MEDS: FOLIC ACID 1 MG TABLET PO SCH (09:45)
[2018-06-09] MEDS: HYDROCORTISONE 20 MG TABLET PO SCH ×2 (09:45→19:17)
[2018-06-09] MEDS: METOPROLOL TARTRATE 25 MG TABLET PO SCH ×3 (09:45→21:00)
[2018-06-09] MEDS: PROSOURCE / PROSTAT (PYXIS) 30 ML UDC PO SCH ×3 (09:45→19:18)
[2018-06-09] MEDS: RIVAROXABAN 15 MG TABLET PO SCH ×2 (09:45→19:17)
[2018-06-09] MEDS: VANCOMYCIN 1 GM in IV NS 0.9% 250 ML IV SCH (10:20)
[2018-06-09] MEDS: IV D5/ 0.9% NACL 1,000 ML IV PRN (11:36)
--- NOTE | 2018-06-09 11:45 | NUR ---
INJECTION PRESS OPERATOR NOTE: PATIENT WAS BROUGHT TO NUCLEAR MEDICINE DEPT. FOR HER HIDA SCAN TEST. KEPT NPO SINCE AM.
[2018-06-09 12:00] VITALS: BP 133/54
--- NOTE | 2018-06-09 12:45 | NUR ---
CATTLE DIPPER NOTE: PATIENT STILL OUT OF THE UNIT FOR HER HIDA SCAN ACCOMPANIED BY 1 MOLDING MACHINE TENDER.
--- NOTE | 2018-06-09 14:36 | NUR ---
REGISTERED MEDICAL TRANSCRIPTIONIST NOTE PATIENT RETURNED TO THE UNIT FROM HIDA SCAN AROUND 13:40. PATIENT TOLERATED PROCEDURE WELL. PER MINT MACHINE OPERATOR, PATIENT NEEDS TO RETURN TO COMPLETE HIDA SCAN AT 16:00 DUE TO GALLBLADDER NOT BEING VISUALIZED DURING INITIAL SCAN. PATIENT AWARE AND AGREEABLE.
--- NOTE | 2018-06-09 14:40 | NUR ---
KENNEL TECHNICIAN NOTE PATIENT STILL NPO DUE TO HIDA SCAN LATER TODAY AT 16:00. D5NS IV INFUSING CURRENTLY AT 75ML/HR.
[2018-06-09 16:00] VITALS: BP 103/58
--- NOTE | 2018-06-09 17:00 | NUR ---
BOARDING ROOM FIXER NOTES PATIENT HAD ANOTHER HIDA SCAN PERFORMED AROUND 16:30, ACCOMPANIED BY RN. PATIENT TOLERATED PROCEDURE WELL AND RETURNED TO UNIT AROUND 17:00.
--- NOTE | 2018-06-09 17:15 | NUR ---
NURSING TECH NOTE: PATIENT WAS NOTED WITH A BLOOD SUGAR OF 69. ON D5NS @75ML/HR. REMAINED ALERT, AWAKE AND VERBALLY RESPONSIVE. HIDA SCAN WAS DONE AND WAS GETTING A HOLD OF DR. ROBERTS IN ORDER TO RESUME THE PATIENT'S PREVIOUS DIET. PATIENT REFUSED TO TAKE ANYTHING FOR HER LOW BLOOD SUGAR. PER PATIENT "I AM OKAY."
[2018-06-09 18:37] LABS: APPEARANCE,URINE TURBID (CLEAR); BILIRUBIN,URINE 1+ (NEGATIVE); BLOOD, URINE 1+ Ery/uL (NEGATIVE); COLOR,URINE YELLOW (YELLOW); KETONES,URINE NEGATIVE (NEGATIVE); LEUKOCYTE ESTERASE ,URINE NEGATIVE (NEGATIVE); NITRITE, URINE NEGATIVE (NEGATIVE); PROTEIN,URINE 1+ mg/dl (NEGATIVE); UGLUCOSE NEGATIVE (NEGATIVE)
[2018-06-09 18:54] LABS: BACTERIA,URINE Few /HPF (None Seen); SQUAMOUS EPITHELIAL CELL,UR Few /HPF (None Seen); URINE AMORPHOUS URATE Many /HPF (None Seen); WBC,URINE 0-2 /HPF (0-3)
--- NOTE | 2018-06-09 19:25 | NUR ---
DICE TABLE PERSON NOTE: PATIENT ON STABLE CONDITION AT THIS TIME. PATIENT REFUSED TO EAT DINNER, BUT TOOK HER PO MEDS AFTER DINNER TIME. REPORT GIVEN TO PM SHIFT NURSE FOR CONTINUITY OF CARE.
--- NOTE | 2018-06-09 19:30 | NUR ---
RN OPENING NOTES RECEIVED PT IN BED, LYING ON HER LEFT SIDE, NO SOB NOTED, BREATHING EVEN AND UNLABORED, IN NO ACUTE DISTRESS, ALL PATIENT'S NEEDS ATTENDED TO AT THIS TIME. ALL PATIENT'S NEEDS ATTENDED TO AT THIS TIME. BED IN LOW POSITION, LOCKED IN PLACE AND CALL LIGHT WITHIN EASY REACH. PT'S SIGNIFICANT OTHER AT BEDSIDE. WILL CONTINUE TO MONITOR.
[2018-06-09 20:00] VITALS: BP 119/49
[2018-06-09] MEDS ORDERED: DIAZOXIDE 50 MG/ML PO ONE (20:29)
--- NOTE | 2018-06-09 22:30 | NUR ---
6229 at patient's bedside checking her IV line, pt. with complaint that she heard staff saying she is refusing her medication, explained to her that staff did not mention anything about her refusing medication, re assured her that charge nurse will help her nurse to tend to her needs and patient agreed.
[2018-06-10] VITALS (11 sets, daily range): BP systolic 102–137; BP diastolic 55–67
--- NOTE | 2018-06-10 01:03 | NUR ---
RN NOTES PATIENT NOTED TO BE ANXIOUS AND IS REQUESTING FOR MEDICATION TO HELP HER SLEEP. INFORMED PT THAT AMBIEN IS ON HER MEDICATION LIST INDICATED TO BE USED A SLEEP AID. PT VERBALIZED THAT AMBIEN IS ONE OF THE BAD DRUGS FOR HER WELL ATIVAN. PAGED COMFORT STATION SUPERVISOR, ROUNDING MACHINE OPERATOR TRISTIN CONTE WITH NEW ORDER FOR ONE TIME DOSE OF BENADRYL 25 MG PO, ROUNDING MACHINE OPERATOR ADDED THAT IT IS NOT ADVISABLE FOR PT'S CONDITION TO GIVE ANY OTHER HYPNOTIC OR INSOMNIA MEDICATION. ALL ORDERS NOTED AND CARRIED OUT.
[2018-06-10] MEDS ORDERED: diphenhydrAMINE HCL 25 MG CAPSULE PO ONE (01:15)
--- NOTE | 2018-06-10 01:39 | NUR ---
RN NOTES PT NOTED WITH 1 EPISODE OF EMESIS AND VERBALIZED THAT SHE IS NAUSEATED. PT AGREED TO RECEIVE ZOFRAN VIA IV BUT NURSE WAS ABOUT TO ADMINISTER MEDICATION, PT CHANGED HER MIND AND REFUSED TO HAVE ZOFRAN. EXPLAINED RISKS AND BENEFITS TO PATIENT BUT PT CONTINUES TO REFUSE.
--- NOTE | 2018-06-10 01:45 | NUR ---
RN NOTES PATIENT'S FRIEND REMAINS TO BE AT BEDSIDE AND VERBALIZED THAT PATIENT "IS PUTTING ON A SHOW" BECAUSE PATIENT DID NOT GET THE NURSE FROM THE PREVIOUS NIGHT AND ALSO TO SHOW THAT SHE DOES NOT TOLERATE PERFUME / BODY SPRAY.
--- NOTE | 2018-06-10 02:15 | NUR ---
RN NOTES OFFERED TO YASMEEN IV BUT PATIENT CONTINUES TO REFUSE, EXPLAINED RISKS AND BENEFITS BUT PATIENT CONTINUES TO REFUSE. WILL CONTINUE TO MONITOR.
[2018-06-10] MEDS: IV D5/ 0.9% NACL 1,000 ML IV PRN (03:26)
[2018-06-10] MEDS: HYDROCODONE/APAP 5/325MG 1 EACH TABLET PO PRN (03:38)
[2018-06-10] MEDS: [UNRECOGNIZED DRUG - OTHER] PO SCH ×3 (05:37→21:51)
[2018-06-10] MEDS: DIAZOXIDE PO SCH ×3 (05:37→21:51)
[2018-06-10] MEDS: MEROPENEM 1 G in IV NS 0.9% 100 ML IV SCH ×3 (05:37→21:51)
--- NOTE | 2018-06-10 06:20 | NUR ---
INSIDE PLANT SUPERVISOR CLOSING NOTES PATIENT IN BED, ASLEEP BUT EASILY AROUSABLE BY NAME AND IS VERBALLY RESPONSIVE. OBTAINED BLOOD SPECIMEN FROM PT'S PICC LINE. PT TOLERATED PROCEDURE WELL, VERBALIZED THAT SHE IS STARTING TO FEEL NAUSEOUS, OFFERED ANTI-EMETIC, ZOFRAN BUT PER PATIENT SHE DOESN'T WANT THE MEDICATION. EXPLAINED RISKS AND BENEFITS TO PT BUT STILL REFUSED. ALL NEEDS ATTENDED TO THROUGHOUT THE SHIFT WITH ASSISTANCE OF CHARGE NURSE. PATIENT ALERT AND ORIENTED, ABLE TO MAKE NEEDS KNOWN, NOTED WITH EPISODES OF ANXIETY AND RESTLESSNESS, ATTEMPTED TO RE-ORIENT NEEDED. APPROACHED PT IN A CALM POSITION AND DECREASED ENVIRONMENTAL STIMULI. PLACED BED IN LOW POSITION, LOCKED IN PLACE, CALL LIGHT WITHIN EASY REACH. WILL ENDORSE TO AM SHIFT NURSE FOR CONTINUITY OF CARE. PT ON TELE WITH SR/ST [id number]
--- NOTE | 2018-06-10 07:04 | NUR ---
AMUSEMENT EQUIPMENT OPERATOR NOTES UPON CHANGING PT'S DIAPER, NOTED SCANT AMOUNT OF BLOODY DISCHARGE FROM RECTAL AREA. PT DENIES ABDOMINAL PAIN AT THIS TIME. PAGED CHRONIC CARE NURSE. AWAITING FOR CALL BACK. ENDORSED TO AM SHIFT NURSE RN FOR CONTINUITY OF CARE.
[2018-06-10 07:25] LABS: HEMATOCRIT 21 % (33-45); MEAN CORPUSCULAR HEMOGLOBIN 26 PG (26.0-33.0); MEAN CORPUSCULAR HGB CONC 32 g/dl (31.0-36.0); MEAN CORPUSCULAR VOLUME 82 fL (82-100); PLATELET COUNT (AUTO) 156 /CMM (150-450); RDW COEFFICIENT OF VARIATION 22.8 (11.5-15.0); WHITE BLOOD COUNT (AUTO) 14.8 K/uL (4.3-11.0)
[2018-06-10 07:35] LABS: BILIRUBIN,DIRECT 1.5 mg/dL (0.0-0.2); CALCIUM, SERUM 8.1 mg/dL (8.5-10.1); CREATININE 0.7 mg/dL (0.6-1.3); MAGNESIUM 1.5 mg/dL (1.8-2.4); PHOSPHORUS 3.9 mg/dL (2.5-4.9); POTASSIUM 4.5 mmol/L (3.5-5.1); TOTAL PROTEIN, SERUM 5.7 g/dL (6.4-8.2)
--- NOTE | 2018-06-10 07:35 | NUR ---
RN NOTE EPIC FORENSIC TOXICOLOGIST MD CALLED BACK, TO MONITOR PATIENT AND CBC TO BE DONE THIS MORNING.
[2018-06-10] MEDS: BLOOD SUGAR DIAGNOSTIC 1 EACH STRIP IN SCH ×4 (07:41→21:52)
[2018-06-10] MEDS: ENSURE ENLIVE 237 ML LIQUID (VANILLA) PO SCH ×3 (07:43→16:39)
[2018-06-10] MEDS: ENSURE ENLIVE CHOC 237 ML CAN PO SCH ×3 (07:43→16:40)
[2018-06-10 07:45] LABS: HEMOGLOBIN 6.5 g/dL (11.5-14.8)
--- NOTE | 2018-06-10 07:45 | NUR ---
RN NOTE LABORATORY CALLED WITH PATIENTS HGB RESULTS OF 6.5. WILL NOTIFY
[2018-06-10] MEDS: HYDROCORTISONE 20 MG TABLET PO SCH ×2 (08:29→16:40)
[2018-06-10] MEDS: POTASSIUM CHLORIDE 10 MEQ TABLET.SA PO SCH (08:30)
[2018-06-10] MEDS: METOPROLOL TARTRATE 25 MG TABLET PO SCH ×2 (08:30→21:51)
[2018-06-10] MEDS: FOLIC ACID 1 MG TABLET PO SCH (08:30)
[2018-06-10] MEDS: RIVAROXABAN 15 MG TABLET PO SCH (08:31)
[2018-06-10] MEDS: PROSOURCE / PROSTAT (PYXIS) 30 ML UDC PO SCH ×3 (08:47→16:41)
[2018-06-10 09:41] LABS: ALBUMIN 1.4 g/dL (3.4-5.0)
[2018-06-10 09:43] LABS: BAND % (MANUAL) 6 % (0.0-5.0); LYMPHOCYTES % (MANUAL) 6 % (16-48); MONOCYTES % (MANUAL) 3 % (0-11.0); NEUTROPHILS % (MANUAL) 85 (42-76)
[2018-06-10] MEDS: Magnesium 1GM/D5W 100ML PREMIX 100 ML IV SCH ×2 (11:35→12:35)
[2018-06-10] MEDS: DEXTROSE 50%-WATER 50 ML DISP.SYRIN IV PRN ×2 (12:43→22:07)
--- NOTE | 2018-06-10 12:44 | NUR ---
RN NOTE BLOOD SUGAR WAS DONE RESULT OF 54, DEXTROSE 50% IVP GIVEN, WILL RECHECK BLOOD SUGAR.
--- NOTE | 2018-06-10 13:30 | NUR ---
RN NOTE RECHECKED BLOOD SUGAR, RESULT OF 112. PATIENT IS STABLE, CALM AND COLLECTIVE. WILL CONTINUE TO MONITOR.
--- NOTE | 2018-06-10 18:35 | NUR ---
RN NOTE BLOOD TRANSFUSION STARTED, 1 UNIT PRBC. PATIENT REMAINS STABLE WITH NO DISTRESS NOTED. WILL CONTINUE TO MONITOR BLOOD PRESSURE AND REACTIONS.
--- NOTE | 2018-06-10 18:55 | NUR ---
RN NOTE PATIENT REMAINS STABLE AND NO ABNORMAL REACTIONS TO BLOOD TRANSFUSION. WILL CONTINUE TO MONITOR.
--- NOTE | 2018-06-10 19:20 | NUR ---
RN NOTE PATIENT REMAINED STABLE THROUGHOUT SHIFT WITH NO ACUTE CHANGES OR DISTRESS NOTED. PATIENT RECEIVING BLOOD TRANSFUSION WILL ENDORSE TO NEXT SHIFT TO CONTINUE TO MONITOR PATIENT AND CONTINUITY OF CARE.
[2018-06-10] MEDS: ACETAMINOPHEN 325 MG TABLET PO PRN (22:08)
[2018-06-11] VITALS: BP 100/52
[2018-06-11] MEDS ORDERED: METOCLOPRAMIDE HCL 10 MG/2 ML VIAL IV PRN (00:30)
[2018-06-11] MEDS: IV D5/ 0.9% NACL 1,000 ML IV PRN ×2 (00:42→16:23)
[2018-06-11 04:00] VITALS: BP 123/52
[2018-06-11] MEDS: MEROPENEM 1 G in IV NS 0.9% 100 ML IV SCH ×3 (05:08→21:59)
[2018-06-11] MEDS: DIAZOXIDE PO SCH ×3 (05:08→21:59)
[2018-06-11] MEDS: [UNRECOGNIZED DRUG - OTHER] PO SCH ×3 (05:08→21:59)
[2018-06-11] MEDS: DEXTROSE 50%-WATER 50 ML DISP.SYRIN IV PRN ×4 (05:21→22:05)
[2018-06-11 06:16] LABS: HEMATOCRIT 25 % (33-45); HEMOGLOBIN 7.9 g/dL (11.5-14.8); MEAN CORPUSCULAR HEMOGLOBIN 27 PG (26.0-33.0); MEAN CORPUSCULAR HGB CONC 32 g/dl (31.0-36.0); MEAN CORPUSCULAR VOLUME 85 fL (82-100); PLATELET COUNT (AUTO) 128 /CMM (150-450); RDW COEFFICIENT OF VARIATION 22.4 (11.5-15.0); RED BLOOD CELL COUNT(AUTO) 2.88 MIL/uL (4.0-5.2); WHITE BLOOD COUNT (AUTO) 13.8 K/uL (4.3-11.0)
[2018-06-11 06:45] LABS: ALBUMIN 1.5 g/dL (3.4-5.0); BILIRUBIN,DIRECT 1.3 mg/dL (0.0-0.2); BILIRUBIN,TOTAL 1.8 mg/dL (0.2-1.0); CREATININE 0.6 mg/dL (0.6-1.3); MAGNESIUM 1.9 mg/dL (1.8-2.4); POTASSIUM 4.4 mmol/L (3.5-5.1); TOTAL PROTEIN, SERUM 5.9 g/dL (6.4-8.2)
--- NOTE | 2018-06-11 07:30 | NUR ---
RN NOTE RECEIVED PATIENT IN BED AWAKE. ALERT AND ORIENT X3, SHE IS ABLE TO MAKE THINGS KNOWN AND VERBALIZE NEEDS. BREATHING EVEN AND UNLABORED WITH NO DISTRESS NOTED. ON INSIDE SALES TRAINER SINUS TACHY HR OF 110. RIGHT UPPER ARM PICC INTACT AND PATENT WITH ONGOING FLUIDS ORDERED. ALL SAFETY MEASURES DONE. BED LOCKED AND LOW POSITION. PLACED CALL LIGHT WITH IN REACH. WILL CONTINUE TO MONITOR.
[2018-06-11] MEDS: BLOOD SUGAR DIAGNOSTIC 1 EACH STRIP IN SCH ×4 (07:52→22:03)
[2018-06-11 08:00] VITALS: BP 133/68
[2018-06-11] MEDS: ENSURE ENLIVE CHOC 237 ML CAN PO SCH ×3 (08:00→16:24)
[2018-06-11] MEDS: ENSURE ENLIVE 237 ML LIQUID (VANILLA) PO SCH ×3 (08:00→16:26)
[2018-06-11] MEDS: FOLIC ACID 1 MG TABLET PO SCH (08:06)
[2018-06-11] MEDS: HYDROCORTISONE 20 MG TABLET PO SCH ×2 (08:06→16:26)
[2018-06-11] MEDS: PROSOURCE / PROSTAT (PYXIS) 30 ML UDC PO SCH ×3 (08:06→16:23)
[2018-06-11] MEDS: POTASSIUM CHLORIDE 10 MEQ TABLET.SA PO SCH (08:06)
[2018-06-11] MEDS: METOPROLOL TARTRATE 25 MG TABLET PO SCH ×2 (08:07→22:00)
[2018-06-11] MEDS: HYDROCODONE/APAP 5/325MG 1 EACH TABLET PO PRN ×2 (08:12→22:01)
[2018-06-11 08:18] LABS: BAND % (MANUAL) 4 % (0.0-5.0); EOSINOPHILS % (MANUAL) 1 % (0-4); LYMPHOCYTES % (MANUAL) 5 % (16-48); MONOCYTES % (MANUAL) 9 % (0-11.0); NEUTROPHILS % (MANUAL) 81 (42-76)
[2018-06-11 12:00] VITALS: BP 106/54
--- NOTE | 2018-06-11 12:00 | NUR ---
RN NOTE BLOOD SUGAR WAS DONE RESULT OF 56, DEXTROSE 50% IVP GIVEN, WILL RECHECK BLOOD SUGAR.
--- NOTE | 2018-06-11 12:45 | NUR ---
RN NOTE RECHECKED BLOOD SUGAR, RESULT OF 88. PATIENT IS STABLE, CALM AND COLLECTIVE. WILL CONTINUE TO MONITOR.
[2018-06-11 16:00] VITALS: BP 113/56
--- NOTE | 2018-06-11 17:30 | NUR ---
RN NOTE BLOOD SUGAR WAS DONE RESULT OF 49, DEXTROSE 50% IVP GIVEN, WILL RECHECK BLOOD SUGAR
[2018-06-11 17:56] LABS: HEMOGLOBIN 7.6 g/dL (11.5-14.8)
--- NOTE | 2018-06-11 18:20 | NUR ---
RN NOTE RECHECKED BLOOD SUGAR, RESULT OF 96. PATIENT IS STABLE, CALM AND COLLECTIVE. WILL CONTINUE TO MONITOR.
--- NOTE | 2018-06-11 18:53 | NUR ---
RN NOTE PATIENT REMAINED STABLE THROUGHOUT SHIFT WITH NO ACUTE CHANGES OR DISTRESS NOTED. WILL ENDORSE TO NEXT SHIFT TO CONTINUE TO MONITOR FOR CONTINUITY OF CARE.
--- NOTE | 2018-06-11 19:30 | NUR ---
RN NOTES RECEIVED PT RESTING ON BED AWAKE ALERT ORIENTED X 3 , VERY SENSITIVE WITH SCENT, DOESNT WANT ANYONE TAKING CARE OF HER WITH SMELLS. WITH O2 2LPM VIA NC. ST ON TELE MONITOR HR 120 WITH INVERTED T WAVE. IV SITE ON IVETT PICC LINE RUNNING WITH D5 NS @ 75 ML/HR PT S/P 1 UNIT PRBC. NO ASE PRESENT. CALL LIGHT KEPT WITHNE ASY REACH. WILL CONT. TO MONITOR.
[2018-06-11 20:00] VITALS: BP 119/60
--- NOTE | 2018-06-11 22:30 | NUR ---
RN NOTES BS 49 MG/DL D50% GIVEN INCLUDING ALL DUE MEDICINE, RECHECKED AFTER 15 MINUTES BS 110 MG/DL WILL CONTINUE TO MONITOR ORDERED.
[2018-06-12] VITALS (7 sets, daily range): BP systolic 90–125; BP diastolic 48–72
[2018-06-12] MEDS: HYDROCODONE/APAP 5/325MG 1 EACH TABLET PO PRN ×3 (03:28→22:55)
[2018-06-12] MEDS: DEXTROSE 50%-WATER 50 ML DISP.SYRIN IV PRN ×4 (03:38→17:28)
--- NOTE | 2018-06-12 03:59 | NUR ---
RN NOTES 3:35 AM - PT FEELS VERY SWEATY, PAIN ALL OVER THE BODY, RESTLESS, AGITATES, SCREAMING TO THE NURSE. BS CHECKED 36 MG/DL D50% GIVEN PRN ORDERED RECHECKED AFTER 15 MINS. BS 172 MG/DL. WILL CONTINUE TO MONITOR.
--- NOTE | 2018-06-12 05:00 | NUR ---
RN NOTES PT ASLEEP WELL ON BED BREATHING EVEN AND UNLABORED. PAIN MEDICINE REMAINED EFFECTIVE. AFEBRILE. VSS. IVF ONGOING. NO S/S OF HYPOGLYCEMIA AT THIS TIME. PRN MEDICINE REMAINED EFFECTIVE.
[2018-06-12] MEDS: [UNRECOGNIZED DRUG - OTHER] PO SCH ×3 (05:29→21:00)
[2018-06-12] MEDS: DIAZOXIDE PO SCH ×3 (05:29→21:00)
[2018-06-12] MEDS: MEROPENEM 1 G in IV NS 0.9% 100 ML IV SCH ×3 (05:29→21:57)
[2018-06-12 07:08] LABS: HEMATOCRIT 25 % (33-45); HEMOGLOBIN 8.1 g/dL (11.5-14.8); MEAN CORPUSCULAR HEMOGLOBIN 28 PG (26.0-33.0); MEAN CORPUSCULAR HGB CONC 32 g/dl (31.0-36.0); MEAN CORPUSCULAR VOLUME 85 fL (82-100); PLATELET COUNT (AUTO) 110 /CMM (150-450); RED BLOOD CELL COUNT(AUTO) 2.93 MIL/uL (4.0-5.2); WHITE BLOOD COUNT (AUTO) 13.1 K/uL (4.3-11.0)
--- NOTE | 2018-06-12 07:30 | NUR ---
RN NOTE RECEIVED PATIENT IN BED AWAKE. ALERT AND ORIENT X3, SHE IS ABLE TO MAKE THINGS KNOWN AND VERBALIZE NEEDS. BREATHING EVEN AND UNLABORED WITH NO DISTRESS NOTED. ON SPECIALTY TRIMMER SINUS TACHY HR OF 105. RIGHT UPPER ARM PICC INTACT AND PATENT WITH ONGOING FLUIDS ORDERED. ALL SAFETY MEASURES DONE. BED LOCKED AND LOW POSITION. PLACED CALL LIGHT WITH IN REACH. WILL CONTINUE TO MONITOR.
[2018-06-12 07:48] LABS: CALCIUM, SERUM 8.3 mg/dL (8.5-10.1); CREATININE 0.7 mg/dL (0.6-1.3); POTASSIUM 4.6 mmol/L (3.5-5.1)
[2018-06-12] MEDS: FOLIC ACID 1 MG TABLET PO SCH (08:19)
[2018-06-12] MEDS: POTASSIUM CHLORIDE 10 MEQ TABLET.SA PO SCH (08:19)
[2018-06-12] MEDS: HYDROCORTISONE 20 MG TABLET PO SCH ×2 (08:20→16:21)
[2018-06-12] MEDS: METOPROLOL TARTRATE 25 MG TABLET PO SCH ×2 (08:20→21:00)
[2018-06-12] MEDS: PROSOURCE / PROSTAT (PYXIS) 30 ML UDC PO SCH ×3 (08:20→16:21)
[2018-06-12] MEDS: ENSURE ENLIVE CHOC 237 ML CAN PO SCH ×2 (08:22→12:00)
[2018-06-12] MEDS: ENSURE ENLIVE 237 ML LIQUID (VANILLA) PO SCH ×3 (08:22→16:21)
--- NOTE | 2018-06-12 08:28 | NUR ---
RN NOTE BLOOD SUGAR WAS DONE RESULT OF 56, DEXTROSE 50% IVP GIVEN, WILL RECHECK BLOOD SUGAR.
[2018-06-12] MEDS: BLOOD SUGAR DIAGNOSTIC 1 EACH STRIP IN SCH ×4 (08:36→22:54)
[2018-06-12 08:47] LABS: BAND % (MANUAL) 2 % (0.0-5.0); LYMPHOCYTES % (MANUAL) 4 % (16-48); MONOCYTES % (MANUAL) 12 % (0-11.0); NEUTROPHILS % (MANUAL) 82 (42-76)
--- NOTE | 2018-06-12 09:07 | NUR ---
RN NOTE RECHECKED BLOOD SUGAR, RESULT OF 106. PATIENT IS STABLE, CALM AND COLLECTIVE. WILL CONTINUE TO MONITOR.
--- NOTE | 2018-06-12 12:26 | NUR ---
RN NOTE BLOOD SUGAR WAS DONE RESULT OF 42, DEXTROSE 50% IVP GIVEN, WILL RECHECK BLOOD SUGAR.
--- NOTE | 2018-06-12 13:15 | NUR ---
RN NOTE RECHECKED BLOOD SUGAR, RESULT OF 114. PATIENT IS STABLE, CALM AND COLLECTIVE. WILL CONTINUE TO MONITOR.
--- NOTE | 2018-06-12 14:06 | NUR ---
Awake and alert pt on 2LNC with SpO2 97% and clear breath sounds refused ABG. RN notified.
--- NOTE | 2018-06-12 14:07 | NUR ---
RN NOTE PATIENT REFUSED ABGS TO BE DONE BY RT. EXPLAINED RISK AND BENEFITS X3, AND STILL REFUSED.
[2018-06-12] MEDS: Sodium Chloride 154 MEQ in IV 10% DEXTROSE 1,000 ML IV PRN (14:24)
--- NOTE | 2018-06-12 17:25 | NUR ---
RN NOTE BLOOD SUGAR WAS DONE RESULT OF 59, DEXTROSE 50% IVP GIVEN, WILL RECHECK BLOOD SUGAR.
--- NOTE | 2018-06-12 18:25 | NUR ---
RN NOTE RECHECKED BLOOD SUGAR, RESULT OF 102. PATIENT IS STABLE, CALM AND COLLECTIVE. WILL CONTINUE TO MONITOR.
--- NOTE | 2018-06-12 22:00 | NUR ---
RN NOTE PT REFUSED TO TURN. EDUCATED PT ON THE NEED TO TURN AND THE CONSEQUENCES OF NOT TURNING WHICH COULD CAUSE A PRESSURE SORE. PT STILL REFUSED AND ASKED FOR ME TO LEAVE THE ROOM.
[2018-06-13] VITALS: BP 107/59
--- NOTE | 2018-06-13 | NUR ---
RN NOTE PT REFUSED TO TURN. EDUCATED PT ON THE NEED TO TURN AND THE CONSEQUENCES OF NOT TURNING WHICH COULD CAUSE A PRESSURE SORE. PT STILL REFUSED.
--- NOTE | 2018-06-13 02:00 | NUR ---
RN NOTE PT REFUSED TO TURN. EDUCATED PT ON THE NEED TO TURN AND THE CONSEQUENCES OF NOT TURNING WHICH COULD CAUSE A PRESSURE SORE. PT STILL REFUSED AND SAID SHE JUST WANTS TO SLEEP AND NOT TO COME INTO HER ROOM AGAIN.
[2018-06-13 04:00] VITALS: BP 120/51
[2018-06-13] MEDS: DIAZOXIDE PO SCH ×3 (05:00→21:00)
[2018-06-13] MEDS: [UNRECOGNIZED DRUG - OTHER] PO SCH ×3 (05:00→21:00)
[2018-06-13] MEDS: MEROPENEM 1 G in IV NS 0.9% 100 ML IV SCH ×3 (05:27→21:00)
[2018-06-13 06:52] LABS: HEMATOCRIT 23 % (33-45); HEMOGLOBIN 7.4 g/dL (11.5-14.8); MEAN CORPUSCULAR HEMOGLOBIN 27 PG (26.0-33.0); MEAN CORPUSCULAR HGB CONC 32 g/dl (31.0-36.0); MEAN CORPUSCULAR VOLUME 85 fL (82-100); PLATELET COUNT (AUTO) 114 /CMM (150-450); RDW COEFFICIENT OF VARIATION 22.8 (11.5-15.0); WHITE BLOOD COUNT (AUTO) 10.3 K/uL (4.3-11.0)
--- NOTE | 2018-06-13 07:03 | NUR ---
RN NOTE PT REMAINS IN NO ACUTE DISTRESS IN BED. PT DID NOT HAVE ANY SIGNIFICANT CHANGE IN CONDITION DURING SHIFT. ALL NEEDS MET, ALL ORDERS CARRIED OUT. WILL ENDORSE CARE TO AM RN FOR CONTINUITY OF CARE.
--- NOTE | 2018-06-13 07:06 | NUR ---
RN NOTE PT REFUSED TO TURN. EDUCATED PT ON THE NEED TO TURN AND THE CONSEQUENCES OF NOT TURNING WHICH COULD CAUSE A PRESSURE SORE. PT STILL REFUSED AND CONTINUE TO GET UPSET. REITERATED THE NEED TO TURN AND RELIEVE PRESSURE ON BONY PROMINENCES. PT DID NOT RESPOND.
--- NOTE | 2018-06-13 07:10 | NUR ---
SQL SSRS SSIS DEVELOPER OPENING NOTE RECEIVED REPORT FROM PM NURSE.PATIENT IS AXOX4.O2 VIA NASAL CANULA 3L .NO SOB NO DISTRESS NOTED AT THIS TIME.RESTING COMFORTABLY ON L SIDE.GENERALIZED EDEMA NOTED.DONT WANT TO CHANGE POSITION.EDUCATED THE PATIENT.STILL DONT WANT TO TURN AND REPOSITION.IVETT MIDLINE WITH D10NS @50CC/HR.BED IS LOW AND IN LOCKED POSITION.CALL LIGHT IN REACH.WILL CONTINUE TO MONITOR.
[2018-06-13 07:17] LABS: ALBUMIN 1.6 g/dL (3.4-5.0); BILIRUBIN,DIRECT 1.3 mg/dL (0.0-0.2); BILIRUBIN,TOTAL 1.6 mg/dL (0.2-1.0); CALCIUM, SERUM 8.2 mg/dL (8.5-10.1); CREATININE 0.7 mg/dL (0.6-1.3); POTASSIUM 4.7 mmol/L (3.5-5.1)
[2018-06-13 08:00] VITALS: BP 106/46
[2018-06-13] MEDS: ENSURE ENLIVE 237 ML LIQUID (VANILLA) PO SCH ×3 (08:00→17:00)
[2018-06-13] MEDS: BLOOD SUGAR DIAGNOSTIC 1 EACH STRIP IN SCH ×4 (08:14→22:00)
[2018-06-13] MEDS: METOPROLOL TARTRATE 25 MG TABLET PO SCH ×2 (08:40→21:00)
[2018-06-13] MEDS: HYDROCORTISONE 20 MG TABLET PO SCH ×2 (08:40→17:26)
[2018-06-13] MEDS: POTASSIUM CHLORIDE 10 MEQ TABLET.SA PO SCH (08:41)
[2018-06-13] MEDS: FLUDROCORTISONE 0.1 MG TABLET PO SCH (08:41)
[2018-06-13] MEDS: FOLIC ACID 1 MG TABLET PO SCH (08:41)
[2018-06-13] MEDS: PROSOURCE / PROSTAT (PYXIS) 30 ML UDC PO SCH ×3 (08:41→17:00)
--- NOTE | 2018-06-13 09:00 | NUR ---
WASHING MACHINE ASSEMBLER NOTES PATIENT C/O BREATHING DIFFICULTY VITAL SIGNS STABLE WITH O2 SAT OF 94%.WILL CONTINUE TO MONITOR.
--- NOTE | 2018-06-13 09:30 | NUR ---
MANAGER CARDIOLOGY NOTES PATIENT WANT TO TALKED TO THE DOCTOR AND SOCIAL SERVICE REGARDING CHANGING HER CODE STATUS AND MAKE ADVANCE DIRECTIVE. AND SW MADE AWARE.
--- NOTE | 2018-06-13 10:00 | NUR ---
PATIENT REFUSED TURN NAD REPOSITIONING.EDUCATED THE PATIENT.STILL DONT WANT TO CHANGE THE POSITION.PATIENT IS LAYING ON LEFT LATERAL POSITION .HER EYES ARE SWOLLEN ON L SIDE AND ALL BODY IS SWOLLEN MORE THAN R SIDE.
--- NOTE | 2018-06-13 10:33 | NUR ---
NAVEED received a call from pt's RN Abelino stating that pt. would like to discuss Advance Directives. SW met with pt. bedside. Pt's was bedside as well. Pt. had a difficult time speaking due to her being unable to breathe without the O2 mask. NAVEED explained to pt. and her the advance directives form and informed them it would have to signed and completed with two witnesses present or a notary. NAVEED gave pt's the contact for mobile notary Daisy Eubanks
[2018-06-13 10:48] LABS: BAND % (MANUAL) 4 % (0.0-5.0); LYMPHOCYTES % (MANUAL) 11 % (16-48); NEUTROPHILS % (MANUAL) 80 (42-76)
[2018-06-13 10:49] LABS: EOSINOPHILS % (MANUAL) 1 % (0-4); MONOCYTES % (MANUAL) 4 % (0-11.0)
--- NOTE | 2018-06-13 11:20 | NUR ---
PATIENT REFUSED EXAM PER RN, EXAM TO BE CANCELLED LATER TODAY.
--- NOTE | 2018-06-13 11:30 | NUR ---
GAS APPLIANCE SERVICER HELPER NOTES SEEN BY PASCUAL BOYCE MADE AWARE ALL ABOUT HER CONDITION ,PATIENT HAS GENERALIZED EDEMA NAD C/O BREATHING DIFFICULTY,ANXIOUS AND AND HER CONCERN REGARDING CODE CHANGE.VITAL SIGNS STABLE.GOT NEW ORDERS.PATIENT REFUSED CTA.ABLE TO EXPLAIN ABOUT CODE STATUS BY PASCUAL BOYCE AND CHANGED CODE STATUS TO DNR/DNI.PATIENT HAS INFORMATION REGARDING THE ADVANCE DIRECTIVE BY NAVEED.PATIENT FRIEND WILL FOLLOW UP WITH THAT.SEEN BY RECOMMENDED PSYCHIATRIC CONSULTATION.CALL MADE TO PSYCHIATRY ,TOLD THAT THE DOCTOR FOR TODAY ALREADY MADE ROUNDS.WILL FOLLOW UP TOMORROW. Addendum: 06/14/18 at 0812 by YOON CHERRY RN WAITING FOR PSYCH CONSULT TO ASSESS PATIENT DECISION MAKING ABILITY.
[2018-06-13 12:00] VITALS: BP 112/52
--- NOTE | 2018-06-13 12:30 | NUR ---
COMPLIANCE DIRECTOR NOTES GOT NEW ORDER FOR ASSESSMENT BY CRISIS TEAM,BECAUSE PATIENT MENTIONING THAT SHE WANT TO ,SHELLFISH DREDGE OPERATOR.INÉS AWARE.PATIENT NEED PSYCH CONSULT BEFORE CRISIS TEAM EVAL.NURSING AUTO BODY SHOP MANAGER AWARE. WILL FOLLOW UP WITH HER IN THE AFTERNOON.
[2018-06-13] MEDS: DEXTROSE 50%-WATER 50 ML DISP.SYRIN IV PRN ×2 (12:54→17:35)
[2018-06-13] MEDS: ALBUTEROL FS 2.5 MG/0.5 ML VIAL.NEB NEB SCH ×2 (13:32→19:45)
[2018-06-13] MEDS: HYDROCODONE/APAP 5/325MG 1 EACH TABLET PO PRN ×2 (13:39→18:21)
--- NOTE | 2018-06-13 14:38 | NUR ---
spoke with rn, patient does not want to do the exam at this time. exam on hold until RN confirms patient is willing to do exam. still pending 18g IV, consent, NPO for 2-4 hours before exam (to avoid nausea during scan due to contrast bolus)
[2018-06-13] MEDS: Sodium Chloride 154 MEQ in IV 10% DEXTROSE 1,000 ML IV PRN (15:13)
[2018-06-13 16:00] VITALS: BP 122/64
--- NOTE | 2018-06-13 16:00 | NUR ---
MANAGEMENT MANAGER NOTES PATIENT MADE ADVANCE DIRECTIVE WITH HELP OF THE ERIK.PLACED A COPY IN THE CHART.WILL CONTINUE TO MONITOR.PATIENT IS ON ROOM AIR SATURATING 94-98%.WILL CONTINUE TO MONITOR.
--- NOTE | 2018-06-13 18:43 | NUR ---
PATIENT SEEN AND EVALUATED BY DR. ELIAS .
--- NOTE | 2018-06-13 19:30 | NUR ---
MANUFACTURING SHIFT SUPERVISOR NOTES: RECEIVED PT. ON HER RIGHT SIDE W/ O2 @ 3LPM VIA N/C SAT 94 %. NO S/S OF RESPIRATORY DISTRESS. NO FACIAL GRIMACES OR MOANING NOTED. W/ GENERALIZED EDEMA + 3 NOTES ALL OVER HER BODY. W/ PICC LINE ON HER IVETT W/ DRESSING INTACT AND PATENT W/ NO S/S OF INFECTION/INFILTRATION NOTED. W/ IVF GOING. W/FAMILY FRIEND BY BED SIDE. INCONTINENT CARE RENDERED. CALL LIGHT W/ REACH.
--- NOTE | 2018-06-13 19:32 | NUR ---
ACCOUNTANT MACHINE PROCESSING CLOSING NOTE PATIENT IS AXOX4.ON RA SATURATING 94-96% .NO SOB NO DISTRESS NOTED AT THIS TIME.RESTING COMFORTABLY ON R SIDE.GENERALIZED EDEMA NOTED WITH MORE SWOLLEN ON L SIDE DIAMOND WHEEL MOLDER JASMYNE MADE AWARE.REFUSED TO CHANGE POSITION UNTIL 1800.CHANGE POSITION TO R LATERAL AT 1800. EDUCATED THE PATIENT.STILL DONT WANT TO TURN AND REPOSITION DURING DAY.IVETT MIDLINE WITH D10NS @50CC/HR.SEEN BY WILL FOLLOW UP WITH PASCUAL BOYCE.SPOKE TO THE PATIENT.FAMILY WAS AT BEDSIDE.ABLE TO ANSWER THE QUESTIONS.BED IS LOW AND IN LOCKED POSITION.CALL LIGHT IN REACH.BED SIDE REPORT GIVEN.FAMILY WAS AT BEDSIDE.ENDORSED TO PM NURSE FOR SHANIA.
[2018-06-13 20:00] VITALS: BP 104/67
--- NOTE | 2018-06-13 21:10 | NUR ---
RN/TELE NOTES: TEXTED PONCHO LACY REGARDING PT. WISHED OF WANTING MORPHINE DISPLAY MANAGER AND STOPPING ALL HER FLUIDS. PER PASCUAL NELSON NOTED W/ NEW ORDERS FOR MORPHINE IVP. NOTED AND CARRIED OUT.
[2018-06-13] MEDS: MORPHINE SULFATE INJ 2 MG/ML DISP.SYRIN IVP PRN (21:47)
--- NOTE | 2018-06-13 22:00 | NUR ---
RN/TELE NOTES: TEXTED GOLF CADDY LESLIE TO INFORM THAT PT. IS REFUSING HER IV ATB, PO MEDS AND HER BLOOD SUGAR CHECK. PER [facility] " SHE IS ENTITLED TO REFUSE EVERYTHING." WILL CONTINUE TO MONITOR.
[2018-06-14] VITALS: BP 107/54
--- NOTE | 2018-06-14 | NUR ---
TELE/RN NOTES" PT. FAMILY FRIEND WANTED BS CHECK. BS 54 PROTOCOL INITIATED. BS RECHECKED IT WAS 100. WILL CONTINUE TO MONITOR.
[2018-06-14] MEDS: DEXTROSE 50%-WATER 50 ML DISP.SYRIN IV PRN (00:12)
[2018-06-14] MEDS: MORPHINE SULFATE INJ 2 MG/ML DISP.SYRIN IVP PRN ×2 (00:27→04:07)
[2018-06-14] MEDS: ALBUTEROL FS 2.5 MG/0.5 ML VIAL.NEB NEB SCH ×2 (02:03→08:02)
[2018-06-14 04:00] VITALS: BP 105/56
[2018-06-14] MEDS: DIAZOXIDE PO SCH (05:00)
[2018-06-14] MEDS: [UNRECOGNIZED DRUG - OTHER] PO SCH (05:00)
[2018-06-14] MEDS: MEROPENEM 1 G in IV NS 0.9% 100 ML IV SCH (05:00)
[2018-06-14 06:40] LABS: CALCIUM, SERUM 8.4 mg/dL (8.5-10.1); CREATININE 0.7 mg/dL (0.6-1.3); POTASSIUM 4.9 mmol/L (3.5-5.1)
[2018-06-14 06:44] LABS: HEMATOCRIT 23 % (33-45); HEMOGLOBIN 7.4 g/dL (11.5-14.8); MEAN CORPUSCULAR HEMOGLOBIN 27 PG (26.0-33.0); MEAN CORPUSCULAR HGB CONC 32 g/dl (31.0-36.0); MEAN CORPUSCULAR VOLUME 85 fL (82-100); PLATELET COUNT (AUTO) 128 /CMM (150-450); RDW COEFFICIENT OF VARIATION 22.8 (11.5-15.0); RED BLOOD CELL COUNT(AUTO) 2.75 MIL/uL (4.0-5.2)
--- NOTE | 2018-06-14 07:17 | NUR ---
RN/TELE NURSE: REPORT GIVEN TO AM NURSE FOR SHANIA.
--- NOTE | 2018-06-14 07:20 | NUR ---
TRANSMITTER CHIEF OPENING NOTE RECEIVED REPORT FROM PM NURSE.PATIENT IS AXOX4.O2 VIA NASAL CANULA 3L .NO SOB NO DISTRESS NOTED AT THIS TIME.RESTING COMFORTABLY ON L SIDE.GENERALIZED EDEMA NOTED.DONT WANT TO CHANGE POSITION.EDUCATED THE PATIENT.STILL DONT WANT TO TURN AND REPOSITION.IVETT MIDLINE WITH D10NS @50CC/HR. BED IS LOW AND IN LOCKED POSITION.CALL LIGHT IN REACH.WILL CONTINUE TO MONITOR.
--- NOTE | 2018-06-14 07:40 | NUR ---
NETWORK TECHNICAL ANALYST NOTES PATIENT IS RESTING ON L SIDE ,REQUESTED TO CHANGE POSITION.REFUSED.EXPLAIN THE RISK AND BENEFIT STILL REFUSED TO CHANGE THE POSITION.PATIENT DONT WANT TO BLOOD SUGAR CHECK AT THIS TIME,SHE WANT TO CALL CORY FIRST AND WAIT FOR HIM TO COME.CALL MADE TO CORY MADE AWARE ABOUT PATIENT REQUEST.HE SAID HE WILL BE HERE IN HALF AN HOUR.PATIENT TALKED TO THE FAMILY,SHE REQUESTED MORPHINE,BUT SHE REFUSED IT.SHE SAID SHE WILL WAIT.WILL CONTINUE TO MONITOR.REFUSED VITAL SIGNS CHECK WITH THE FINAL ASSEMBLER BOAT.SHE AGREED TO CHECK VITAL SIGNS.STABLE VITAL SIGNS NOTED.NO SOB NO DISTRESS NOTED AT THIS TIME.
[2018-06-14 08:00] VITALS: BP 114/46
[2018-06-14] MEDS: ENSURE ENLIVE 237 ML LIQUID (VANILLA) PO SCH (08:00)
[2018-06-14] MEDS: PROSOURCE / PROSTAT (PYXIS) 30 ML UDC PO SCH (08:20)
[2018-06-14 08:28] LABS: BAND % (MANUAL) 3 % (0.0-5.0); EOSINOPHILS % (MANUAL) 2 % (0-4); LYMPHOCYTES % (MANUAL) 2 % (16-48); MONOCYTES % (MANUAL) 8 % (0-11.0); NEUTROPHILS % (MANUAL) 85 (42-76)
[2018-06-14] MEDS: HYDROCORTISONE 20 MG TABLET PO SCH (08:29)
[2018-06-14] MEDS: BLOOD SUGAR DIAGNOSTIC 1 EACH STRIP IN SCH (08:42)
[2018-06-14] MEDS: FLUDROCORTISONE 0.1 MG TABLET PO SCH (08:44)
[2018-06-14] MEDS: POTASSIUM CHLORIDE 10 MEQ TABLET.SA PO SCH (08:44)
[2018-06-14] MEDS: FOLIC ACID 1 MG TABLET PO SCH (08:44)
--- NOTE | 2018-06-14 08:45 | NUR ---
SECURITY SOFTWARE ENGINEER NOTES PATIENT IS ABLE AGREED TO DO BLOOD SUGAR CHECK ,BLOOD SUGAR CHECKED 64LOW RECHECKED 68.PATIENT ABLE TO DRINK ORANGE JUICE.TOOK ALL HER MORNING MEDICATION.RESTING COMFORTABLY.FAMILY IS AT BEDSIDE.
[2018-06-14 08:56] VITALS: BP 114/46
[2018-06-14] MEDS: METOPROLOL TARTRATE 25 MG TABLET PO SCH (08:56)
--- NOTE | 2018-06-14 09:55 | NUR ---
BRAKE LINING MAKER NOTES RADIOLOGIST WAS AT ROOM FOR CTA.HE EXPLAINED PROCEDURE AND ANSWER THE QUESTIONS.PATIENT WANT TO DO CTA IN SPITE OF HER WISH TO BE ON COMFORT MEASURE.SHE WANT CORY TO BE SIGN THE CONSENT.GOT CONSENT TO DO THE PROCEDURE.RADIOLOGY MADE AWARE.
[2018-06-14] MEDS ORDERED: IOHEXOL-350 100 ML VIAL IV ONE (10:07)
--- NOTE | 2018-06-14 10:13 | NUR ---
FOREST LAW AND POLICY PROFESSOR NOTE LEFT FOR CTA,PICKED UP BY RADIOLOGIST IN STABLE CONDITION.NO SOB NO DISTRESS NOTED.FAMILY WAS AT THE BEDSIDE.
--- NOTE | 2018-06-14 10:25 | NUR ---
TRANSFORMER REPAIRER NOTES PATIENT BROUGHT BACK TO ROOM BY RADIOLOGIST,WAS AT THE ROOM.PATIENT IS NON RESPONSIVE,NOT BREATHING DNR/DNI STATUS.FAMILY IS BED SIDE.HE WANT TO KEEP PATIENT WISHES.PER RADIOLOGIST.THEY WERE TALKING TO THE PATIENT WHILE THEY WERE WHEELING HER TO THE ROOM.ATTEMPT TO FEEL PULSE BY MYSELF AND WITH TWO OTHER NURSES BUT UNABLE TO FEEL PULSE.CHARGE NURSE AWARE.
--- NOTE | 2018-06-14 10:30 | NUR ---
TEL,nurse,patient DNR/DNR status with absent respirations ,pulses, no audible heart tones,pupils fixed and dilated,pronounced UMBRELLA SUPERVISOR, db Shah ,nursing automation and controls supervisor was notified at this time family at bed side
--- NOTE | 2018-06-14 10:45 | NUR ---
BEAM BUILDER NOTES FAMILY AT BEDSIDE ,HE SAID HE WILL MAKE ARRANGEMENTS AND WILL LET US KNOW.TOOK ALL THE BELONGINGS BY FAMILY. EYE GLASSES.
--- NOTE | 2018-06-14 10:52 | NUR ---
ASSOCIATE DIRECTOR OPENING NOTE RECEIVED REPORT FROM PM NURSE.PATIENT IS AXOX4.O2 VIA NASAL CANULA 3L .NO SOB NO DISTRESS NOTED AT THIS TIME.RESTING COMFORTABLY ON L SIDE.GENERALIZED EDEMA NOTED.DONT WANT TO CHANGE POSITION.EDUCATED THE PATIENT.STILL DONT WANT TO TURN AND REPOSITION.IVETT MIDLINE WITH D10NS @50CC/HR. BED IS LOW AND IN LOCKED POSITION.CALL LIGHT IN REACH.WILL CONTINUE TO MONITOR. Addendum: 06/14/18 at 1152 by YOON CHERRY RN WRONG TIME
--- NOTE | 2018-06-14 13:00 | NUR ---
ROOFING MACHINE TENDER NOTES CORY GIVEN INFORMATION REGARDING THE ARRANGEMENTS,[facility] NO [phone].NOTIFIED THAT BODY WILL BE TRANSFERRED TO THE [facility] OF THE [facility] AFTER 3 HRS.[facility] NOTIFIED.
--- NOTE | 2018-06-14 14:10 | NUR ---
RN NOTES BODY TRANSFERRED TO [facility],ACCOMPANIED BY SECURITY.REPORT GIVEN TO HEARTH FEEDER WITH PATIENT CHART.
== END 2018-06-14 10:30 | disposition expired | DRG 299 ==
LOC: ER 12:07 → TELE1 14:11
PROVIDERS: ADMIT Hospitalist; ATTEND Hospitalist
PROC: 02HV33Z Insertion of Infusion Device into Superior Vena Cava, Percutaneous Approach (ICD-10-PCS; principal; 2018-06-08)
PROC: 30233N1 Transfusion of Nonautologous Red Blood Cells into Peripheral Vein, Percutaneous Approach (ICD-10-PCS; 2018-06-10)
DX: I82.612 Acute embolism and thrombosis of superficial veins of left upper extremity (principal); E43 Unspecified severe protein-calorie malnutrition; C18.9 Malignant neoplasm of colon, unspecified; C78.00 Secondary malignant neoplasm of unspecified lung; C78.7 Secondary malignant neoplasm of liver and intrahepatic bile duct; E27.40 Unspecified adrenocortical insufficiency; K92.2 Gastrointestinal hemorrhage, unspecified; K81.0 Acute cholecystitis; M79.7 Fibromyalgia; F39 Unspecified mood [affective] disorder; F41.9 Anxiety disorder, unspecified; F32.9 Major depressive disorder, single episode, unspecified; D72.829 Elevated white blood cell count, unspecified; Z68.34 Body mass index [BMI] 34.0-34.9, adult; D63.8 Anemia in other chronic diseases classified elsewhere; R74.0 Nonspecific elevation of levels of transaminase and lactic acid dehydrogenase [LDH]; R60.1 Generalized edema; R16.1 Splenomegaly, not elsewhere classified; R53.1 Weakness; Z66 Do not resuscitate; E80.6 Other disorders of bilirubin metabolism; E03.9 Hypothyroidism, unspecified; D50.9 Iron deficiency anemia, unspecified; E87.6 Hypokalemia; E78.5 Hyperlipidemia, unspecified; T38.0X5A Adverse effect of glucocorticoids and synthetic analogues, initial encounter; Y92.89 Other specified places as the place of occurrence of the external cause; E66.9 Obesity, unspecified; E16.2 Hypoglycemia, unspecified; E53.8 Deficiency of other specified B group vitamins; Z74.01 Bed confinement status
CPT/HCPCS: 36415; 71045-TC; 76705-TC; 78226; 80048-TC; 80076-TC; 81000-TC; 82247-TC; 82248-TC; 82962-TC; 83735-TC; 84100-TC; 84439-TC; 84443-TC; 84484-TC; 85025-TC; 85027-TC; 85378-TC; 85730-TC; 86850-TC; 86921-TC; 87040-TC; 87081-TC; 93971-TC; A4216; A4606; A9537; C1751; J1610; J1815; J2185; J2270; J2405; J2765; J3370; J3475; J3490; J7030; J7040; J7042; J7050; J7060; P9016-BL; Q0163; Q9967; Z7610